=== PATIENT | female | born 1950 | race Caucasian/White ===

== ENCOUNTER 2016-12-19 19:24 | Emergency (ER) | payer MEDICARE, BC ==
--- NOTE | 2016-12-19 23:09 | ER Document Report ---
ED Skin Rash/Insect Bite/Abscs - General Chief Complaint: Rash Stated Complaint: POSSIBLE RASH Time Seen by Provider: 12/19/16 23:07 Mode of Arrival: Ambulatory Information source: Patient Notes: This is a 66-year-old female with a history of hypertension, borderline diabetes , recent UTI (on Cipro for 4 days) who presents to the emergency room with a upper extremity rash. Patient denies fever, chills, nausea vomiting. She states she started itching one day before being placed on the Cipro. She started having a rash on the extensor surface of the forearms. The right side was worse than the left. She's been taking Benadryl for itch and the symptoms have progressed. TRAVEL OUTSIDE OF THE [place] IN LAST 30 DAYS: No - HPI Patient complains to provider of: Skin rash/lesion Onset: Last week Onset/Duration: Gradual Quality of pain: No pain Severity: None Pain Level: Denies Skin Character: Rash Skin Temperature: Cool Quality of rash: Itchy Identify cause: No - patient states she had gotten several mosquito bites Medication exposure: Other - She states that the rash started one day before being started on Cipro for a UTI Other exposure: denies: Detergent, Lotions, Infectious illness, Makeup, MRSA, Poison elsie, Poison oak, Soap, Other Exacerbated by: Denies Relieved by: Denies Similar symptoms previously: No Recently seen / treated by doctor: No - Related Data Allergies/Adverse Reactions: Penicillins Allergy (Intermediate, Verified 10/17/14 11:21) Rash Sulfa (Sulfonamide Antibiotics) Allergy (Unknown, Verified 10/17/14 11:21) Unknown reaction Past Medical History - General Information source: Patient - Social History Smoking Status: Never Smoker Cigarette use (# per day): No Chew tobacco use (# tins/day): No Frequency of alcohol use: None Drug Abuse: None Lives with: Spouse/Significant other Family History: Reviewed & Not Pertinent Patient has suicidal ideation: No Patient has homicidal ideation: No - Past Medical History Cardiac Medical History: Reports: Hx Hypertension Denies: Hx Coronary Artery Disease, Hx Heart Attack Pulmonary Medical History: Denies: Hx Asthma, Hx Bronchitis, Hx COPD, Hx Pneumonia Neurological Medical History: Denies: Hx Cerebrovascular Accident, Hx Seizures Endocrine Medical History: Reports: Hx Diabetes Mellitus Type 2 Renal/ Medical History: Denies: Hx Peritoneal Dialysis Malignancy Medical History: Reports: None Musculoskeltal Medical History: Reports Hx Arthritis - knees Skin Medical History: Reports None Psychiatric Medical History: Reports: None Traumatic Medical History: Reports: None Infectious Medical History: Reports: None Past Surgical History: Reports: Other - Cervical fusion, bilateral knee replacements. Denies: Hx Pacemaker - Immunizations Hx Diphtheria, Pertussis, Tetanus Vaccination: No - unknown Hx Pneumococcal Vaccination: 05/07/09 Review of Systems - Review of Systems Constitutional: denies: Chills, Fever EENT: No symptoms reported Cardiovascular: No symptoms reported Respiratory: No symptoms reported Gastrointestinal: No symptoms reported Genitourinary: No symptoms reported Female Genitourinary: No symptoms reported Musculoskeletal: No symptoms reported Skin: See HPI Hematologic/Lymphatic: No symptoms reported Neurological/Psychological: No symptoms reported Physical Exam - Vital signs Notes: Physical exam: GENERAL: 66-year-old female, alert and oriented 3, no acute distress. HEAD: Atraumatic, normocephalic. EYES: Pupils equal round and reactive to light, extraocular movements intact, sclera anicteric, conjunctiva are normal. ENT: Moist mucous membranes. NECK: Normal range of motion, supple LUNGS: Breath sounds clear to auscultation bilaterally and equal. No wheezes rales or rhonchi. HEART: Regular rate and rhythm without murmurs, rubs or gallops. EXTREMITIES: Right upper extremity: Patient has a diffuse rash on the extensor surface of the right forearm. He does appear to be scratches. The reaction does not appear cellulitic. It looks like a atopic dermatitis. NEUROLOGICAL: Cranial nerves II through XII grossly intact. Normal speech, normal gait. PSYCH: Normal mood, normal affect. SKIN: Warm, Dry, normal turgor, no rashes or lesions noted. Discharge - Discharge Clinical Impression: allergic reaction Condition: Stable Disposition: HOME, SELF-CARE Instructions: Acute Allergic Reaction ([facility]) Additional Instructions: Recommendations: Take the prednisone as prescribed for the next few days. Take Pepcid twice daily as prescribed. Continue with the Benadryl every 6 hours as needed. Try a Aveeno oatmeal based skin lotions and soaps. Follow-up with Dr. Vallejo: Call the office tomorrow. I would probably stop the Cipro for now. Follow-up with a software quality test engineer: [facility] [place] [id number] , [place], [place] [phone] Prescriptions: Famotidine [Pepcid 20 mg Tablet] 20 mg PO DAILY #12 tablet Prednisone [Deltasone 20 mg Tablet] 3 tab PO DAILY 5 Days Referrals: DARLENE BANSAL MD [Primary Care Provider] - Follow up tomorrow
[2016-12-19] MEDS ORDERED: PREDNISONE 20 MG TABLET PO ONE (23:20)
[2016-12-19 23:47] VITALS: BP 149/85
== END 2016-12-19 23:48 | disposition home or self-care (01) ==
LOC: ER 19:24
DX: T78.40XA Allergy, unspecified, initial encounter (principal); X58.XXXA Exposure to other specified factors, initial encounter; I10 Essential (primary) hypertension; R73.03 Prediabetes; Z88.0 Allergy status to penicillin; Z88.2 Allergy status to sulfonamides; Z98.1 Arthrodesis status; Z96.653 Presence of artificial knee joint, bilateral
CPT/HCPCS: 99282; A9270; J7512

== ENCOUNTER → 2016-12-22 | Outpatient (CLI) | payer MEDICARE, BC ==
[2016-12-22 13:26] LABS: ERYTHROCYTE SEDIMENTATION RATE 23 mm/hr (0-30)
[2016-12-22 16:00] LABS: ABSOLUTE EOSINOPHILS # (AUTO) 0.1 10^3/uL (0.0-0.6); ABSOLUTE LYMPHOCYTES (AUTO) 1.1 10^3/uL (0.5-4.7); ABSOLUTE MONOCYTES (AUTO) 0.5 10^3/uL (0.1-1.4); ABSOLUTE NEUT (AUTO) 7.2 10^3/uL (1.7-8.2); BASOPHILS % (AUTO) 0.3 % (0-2); HEMATOCRIT 39.5 % (36.0-47.0); HEMOGLOBIN 12.7 g/dL (12.0-15.5); HGB HCT DIFFERENCE -1.4; LYMPHOCYTES % (AUTO) 12.5 % (13-45); MEAN CORPUSCULAR HEMOGLOBIN 30.3 pg (27.0-33.4); MEAN CORPUSCULAR HGB CONC 32.1 g/dL (32.0-36.0); MEAN CORPUSCULAR VOLUME 95 fl (80-97); MONOCYTES % (AUTO) 5.9 % (3-13); RED BLOOD COUNT 4.18 10^6/uL (3.72-5.28); SEGMENTED NEUTROPHILS % (AUTO) 80.3 % (42-78)
== END ==
LOC: OD 07:47
PROVIDERS: ATTEND Internal Medicine
DX: L30.9 Dermatitis, unspecified (principal)
CPT/HCPCS: 36415; 85025; 85652

== ENCOUNTER → 2017-05-23 | Outpatient (CLI) | payer MEDICARE, BC ==
[2017-05-23 14:03] LABS: ALANINE AMINOTRANSFERASE 40 U/L (9-52); ALBUMIN 3.5 g/dL (3.5-5.0); ALKALINE PHOSPHATASE 112 U/L (38-126); ANION GAP 13 (5-19); ASPARTATE AMINO TRANSFERASE 43 U/L (14-36); BILIRUBIN,DIRECT 0.5 mg/dL (0.0-0.4); BILIRUBIN,TOTAL 1.5 mg/dL (0.2-1.3); BLOOD UREA NITROGEN 14 mg/dL (7-20); CALCIUM 9.3 mg/dL (8.4-10.2); CARBON DIOXIDE 26 mmol/L (22-30); CHLORIDE 106 mmol/L (98-107); CREATININE RESULT 0.68 mg/dL (0.52-1.25); GLUCOSE 138 mg/dL (75-110); POTASSIUM 4.6 mmol/L (3.6-5.0); SODIUM 144.5 mmol/L (137-145); TOTAL PROTEIN 6.8 g/dL (6.3-8.2)
== END ==
LOC: OD 10:01
PROVIDERS: ATTEND Internal Medicine
DX: E11.42 Type 2 diabetes mellitus with diabetic polyneuropathy (principal)
CPT/HCPCS: 36415; 80053

== ENCOUNTER → 2017-05-29 | Outpatient (CLI) | payer MEDICARE, BC | LOC: OD 09:51 | PROVIDERS: ATTEND Internal Medicine | DX: E11.42 Type 2 diabetes mellitus with diabetic polyneuropathy (principal) | CPT/HCPCS: 36415; 83036 ==

== ENCOUNTER 2017-06-13 10:45 | Day surgery (SDC) | payer MEDICARE, BC ==
[~2017-06-13 10:45] MED LIST: BUPIVACAINE HCL 0.75% INJ/PF (7.5 MG/1 ML) 10 ML SDV OS PRN; CHONDR SU A NA/HYALUR INTRAOC KIT (SURGICARE) ONE; KETOROLAC TROMETHAMINE 0.45% 4 DROP/0.4 ML DROPERETTE OS PRN; LIDOCAINE 4% INJ/PF (40 MG/ML) 5 ML AMPUL OS PRN; PHENYLEPHRINE/KETOROLAC 1%-0.3% 4 ML VIAL ONE
[2017-06-13] MEDS: TROPICAMIDE 1% OPH SOLN 3 ML OS PRN ×3 (11:15→11:41)
[2017-06-13] MEDS: BESIFLOXACIN HCL 0.6% OPH SUSP 5 ML BOTTLE OS PRN ×4 (11:15→12:19)
[2017-06-13] MEDS: CYCLOPENTOLATE 0.2%/PHENYLEPHRINE 1% OPH SOLN 2 ML OS PRN ×3 (11:15→11:41)
[2017-06-13] MEDS: TETRACAINE HCL 0.5% OPH SOLN 0.6 ML DROPERETTE OS PRN ×2 (11:16→11:41)
[2017-06-13] MEDS ORDERED: FENTANYL CITRATE INJ/PF 100 MCG/2 ML AMPUL ONE (11:27)
[2017-06-13] MEDS ORDERED: MIDAZOLAM 2 MG/2 ML INJ ONE (11:27)
[2017-06-13] MEDS ORDERED: ONDANSETRON HCL INJ/PF 4 MG/2 ML SDV ONE (11:28)
--- NOTE | 2017-06-13 12:42 | [facility] OPERATIVE REPORT E ---
[facility] Operative Report NAME: VITO SUÁREZ AGE: 67Y DATE OF SURGERY: 06/13/2017 ROOM: PREOPERATIVE DIAGNOSIS: Cataract, left eye. POSTOPERATIVE DIAGNOSIS: Cataract, left eye. PROCEDURE PERFORMED: Phacoemulsification with posterior chamber intraocular lens, left eye. SURGEON: EARL KU M.D. ANESTHESIA: Topical with MAC. DESCRIPTION OF PROCEDURE: The patient was brought to the operating room and placed on the operative table. Following tetracaine drops, topical anesthesia was administered. This consisted of instrument wipe pledgets soaked in a solution of 4% Xylocaine mixed with 0.75% Marcaine in a 1:2 ratio. A 2 x 1 cm pledget was placed in the superior fornix. A 1 x 1 cm pledget was placed in the inferior fornix. The eye was patched shut for 5 minutes. The patch was removed. The eye was sterilely prepped and draped in the usual manner. Lid speculum was placed in the eye. The pledgets were removed, 4-0 black silk sutures were placed around the superior and the inferior rectus muscles to be used as traction. A conjunctival peritomy was made at the 10 o'clock position. Hemostasis was obtained with bipolar cautery. A posterior limbal groove was created using a crescent knife and dissected anteriorly towards the cornea. A sharp point blade was used to create a paracentesis site at the 2 o'clock position. A 2.4 mm keratome was used to enter the anterior chamber through the groove. Viscoelastic was injected into the anterior chamber. An anterior capsulotomy was performed using Utrata forceps in a capsulorrhexis fashion. Hydrodissection and hydrodelineation were performed. Phacoemulsification was performed in [id number]-[id number]-[id number] technique. Total phaco time 8.64 CDE. Following this, the I/A unit was used to remove residual cortex. Viscoelastic was injected into the capsular bag. Intraocular lens Model [id number], 20.5 diopters, serial number [id number] was placed in the capsular bag. The I/A unit was used to remove residual viscoelastic. The wound was seen to be watertight under high and low pressure, and no sutures were placed. The intraocular lens was well centered. The pressure was adjusted in the eye to normal pressure. The 4-0 black silk sutures and lid speculum were removed. The eye was shielded after Besivance drops were placed. The patient tolerated the procedure well and was sent to the recovery room in good condition. DICTATING PHYSICIAN: EARL KU M.D. [id number] PHY#: [id number] ID: [id number] JOB#: [id number] ACCT: [id number] cc:EARL KU M.D. >
--- NOTE | 2017-06-13 12:43 | [facility] DISCHARGE SUMMARY E ---
[facility] Discharge Summary NAME: VITO SUÁREZ AGE: 67Y ADMITTED: 06/13/2017 DISCHARGED: 06/13/2017 HOSPITAL COURSE: The patient is a 67-year-old lady who underwent uneventful cataract extraction with intraocular lens implant, left eye on 06/13/2017. She will be discharged to home. She was instructed to resume preoperative medications, to take Tylenol as needed for discomfort, to keep her eye shielded, to use Besivance, Durezol and Ilevro at 3:00 p.m. and 8:00 p.m., and to follow up in my office in 1 day. INDICATIONS FOR SURGERY: Difficulty with driving at night and seeing words on TV. BEST CORRECTED VISUAL ACUITY: 20/70. DICTATING PHYSICIAN: EARL KU M.D. [id number] PHY#: [id number] ID: [id number] JOB#: [id number] ACCT: [id number] cc:EARL KU M.D. >
[2017-06-14] MEDS ORDERED: TETRACAINE HCL 0.5% OPH SOLN 2 ML OS PRN (05:00)
== END 2017-06-13 13:08 | disposition home or self-care (01) ==
LOC: SC 10:45
PROVIDERS: ATTEND Ophthalmology
PROC: 08RK3JZ Replacement of Left Lens with Synthetic Substitute, Percutaneous Approach (ICD-10-PCS; principal; 2017-06-13 12:00)
DX: H25.813 Combined forms of age-related cataract, bilateral (principal); H57.03 Miosis; H35.363 Drusen (degenerative) of macula, bilateral; E11.9 Type 2 diabetes mellitus without complications; I10 Essential (primary) hypertension; M19.90 Unspecified osteoarthritis, unspecified site; M81.0 Age-related osteoporosis without current pathological fracture; D64.9 Anemia, unspecified; E66.9 Obesity, unspecified; Z79.899 Other long term (current) drug therapy; Z88.0 Allergy status to penicillin; Z79.4 Long term (current) use of insulin; Z68.38 Body mass index [BMI] 38.0-38.9, adult
CPT/HCPCS: 66984; 82962; V2632; J2250; J3490 ×3; A9270; J3010; J2405; C9447; 142

== ENCOUNTER 2017-07-18 07:53 | Day surgery (SDC) | payer MEDICARE, BC ==
[~2017-07-18 07:53] MED LIST changes: +BUPIVACAINE HCL 0.75% INJ/PF (7.5 MG/1 ML) 10 ML SDV OD PRN; -BUPIVACAINE HCL 0.75% INJ/PF (7.5 MG/1 ML) 10 ML SDV OS PRN; +KETOROLAC TROMETHAMINE 0.45% 4 DROP/0.4 ML DROPERETTE OD PRN; -KETOROLAC TROMETHAMINE 0.45% 4 DROP/0.4 ML DROPERETTE OS PRN; +LIDOCAINE 1% INJ-PF (10 MG/ML) 30 ML SDV ONE; +LIDOCAINE 4% INJ/PF (40 MG/ML) 5 ML AMPUL OD PRN; -LIDOCAINE 4% INJ/PF (40 MG/ML) 5 ML AMPUL OS PRN
[2017-07-18] MEDS: CYCLOPENTOLATE 0.2%/PHENYLEPHRINE 1% OPH SOLN 2 ML OD PRN ×3 (08:25→09:03)
[2017-07-18] MEDS: TROPICAMIDE 1% OPH SOLN 3 ML OD PRN ×3 (08:25→09:03)
[2017-07-18] MEDS: BESIFLOXACIN HCL 0.6% OPH SUSP 5 ML BOTTLE OD PRN ×3 (08:26→09:38)
[2017-07-18] MEDS: TETRACAINE HCL 0.5% OPH SOLN 0.6 ML DROPERETTE OD PRN ×2 (08:27→09:03)
[2017-07-18] MEDS ORDERED: MIDAZOLAM 2 MG/2 ML INJ ONE (08:46)
[2017-07-18] MEDS ORDERED: FENTANYL CITRATE INJ/PF 100 MCG/2 ML AMPUL ONE (08:53)
--- NOTE | 2017-07-18 09:54 | [facility] DISCHARGE SUMMARY E ---
[facility] Discharge Summary NAME: VITO SUÁREZ AGE: 67Y ADMITTED: 07/18/2017 DISCHARGED: 07/18/2017 PREOPERATIVE DIAGNOSIS: CATARACT, RIGHT EYE. POSTOPERATIVE DIAGNOSIS: CATARACT, RIGHT EYE. HOSPITAL COURSE: Patient is a 67-year-old lady who underwent uneventful cataract extraction with intraocular lens implant, right eye, on 07/18/2017. DISPOSITION: She will be discharged to home. She was instructed to resume preoperative medications; take Tylenol as needed for discomfort; to keep her eye shielded; to use Besivance, Durezol, and Ilevro at 3:00 p.m. and 8:00 p.m.; and to follow up in my office in 1 day. DICTATING PHYSICIAN: EARL KU M.D. [id number] PHY#: [id number] ID: [id number] JOB#: [id number] ACCT: [id number] cc:EARL KU M.D. >
--- NOTE | 2017-07-18 09:54 | [facility] OPERATIVE REPORT E ---
[facility] Operative Report NAME: VITO SUÁREZ AGE: 67Y DATE OF SURGERY: 07/18/2017 ROOM: PREOPERATIVE DIAGNOSIS: CATARACT, RIGHT EYE. POSTOPERATIVE DIAGNOSIS: CATARACT, RIGHT EYE. PROCEDURE PERFORMED: Phacoemulsification with posterior chamber intraocular lens, right eye. SURGEON: EARL KU M.D. ANESTHESIA: Topical W/MAC. INDICATIONS FOR SURGERY: Difficulty with optical imbalance following cataract surgery in the left eye. Best corrected visual acuity 20/50 DESCRIPTION OF PROCEDURE: The patient was brought to the operating room and placed on the operative table. Following tetracaine drops, topical anesthesia was administered. This consisted of instrument wipe pledgets soaked in a solution of 4% Xylocaine mixed with 0.75% Marcaine in a 1:2 ratio. A 2 x 1 cm pledget was placed in the superior fornix. A 1 x 1 cm pledget was placed in the inferior fornix. The eye was patched shut for 5 minutes. The patch was removed. The eye was sterilely prepped and draped in the usual manner. Lid speculum was placed in the eye. The pledgets were removed, 4-0 black silk sutures were placed around the superior and the inferior rectus muscles to be used as traction. A conjunctival peritomy was made at the 10 o'clock position. Hemostasis was obtained with bipolar cautery. A posterior limbal groove was created using a crescent knife and dissected anteriorly towards the cornea. A sharp point blade was used to create a paracentesis site at the 2 o'clock position. A 2.4 mm keratome was used to enter the anterior chamber through the groove. Viscoelastic was injected into the anterior chamber. An anterior capsulotomy was performed using Utrata forceps in a capsulorrhexis fashion. Hydrodissection and hydrodelineation were performed. Phacoemulsification was performed in [id number]-nophemo technique. A total of 44 seconds total phaco time was used. Following this, the I/A unit was used to remove residual cortex. Viscoelastic was injected into the capsular bag. Intraocular lens Model [id number], 19.5 diopter, serial number [id number] was placed in the capsular bag. The I/A unit was used to removed residual viscoelastic. The wound was seen to be watertight under high and low pressure, and no sutures were placed. The intraocular lens was well centered. The pressure was adjusted in the eye to normal pressure. The 4-0 black silk sutures and lid speculum were removed. The eye was shielded after Besivance drops were placed. The patient tolerated the procedure well and was sent to the recovery room in good condition. DICTATING PHYSICIAN: EARL KU M.D. [id number] PHY#: [id number] ID: [id number] JOB#: [id number] ACCT: [id number] cc:EARL KU M.D. > MTDD
== END 2017-07-18 10:40 | disposition home or self-care (01) ==
LOC: SC 07:53
PROVIDERS: ATTEND Ophthalmology
PROC: 08RJ3JZ Replacement of Right Lens with Synthetic Substitute, Percutaneous Approach (ICD-10-PCS; principal; 2017-07-18 09:30)
DX: H25.811 Combined forms of age-related cataract, right eye (principal); H57.03 Miosis; Z96.1 Presence of intraocular lens; I10 Essential (primary) hypertension; M19.90 Unspecified osteoarthritis, unspecified site; K21.9 Gastro-esophageal reflux disease without esophagitis; E11.9 Type 2 diabetes mellitus without complications; D64.9 Anemia, unspecified; E66.9 Obesity, unspecified; Z79.899 Other long term (current) drug therapy; Z88.0 Allergy status to penicillin; Z88.2 Allergy status to sulfonamides; Z79.84 Long term (current) use of oral hypoglycemic drugs; Z68.38 Body mass index [BMI] 38.0-38.9, adult
CPT/HCPCS: 66984; 82962; V2632; J2250; J3490 ×4; A9270; C9447; 142; J3010

== ENCOUNTER 2017-09-25 15:08 | Observation (INO) | payer MEDICARE, BC ==
[2017-09-25 16:35] LABS: HEMOGLOBIN 12.4 g/dL (12.0-15.5); MEAN CORPUSCULAR HEMOGLOBIN 30.3 pg (27.0-33.4); MEAN CORPUSCULAR HGB CONC 33.4 g/dL (32.0-36.0); MEAN CORPUSCULAR VOLUME 91 fl (80-97); PLATELET COUNT 144 10^3/uL (150-450); RED BLOOD COUNT 4.08 10^6/uL (3.72-5.28); RED CELL DISTRIBUTION WIDTH 15.5 % (11.5-14.0); WHITE BLOOD COUNT 5.8 10^3/uL (4.0-10.5)
[2017-09-25 16:53] LABS: ALANINE AMINOTRANSFERASE 52 U/L (9-52); ALBUMIN 3.1 g/dL (3.5-5.0); ALKALINE PHOSPHATASE 127 U/L (38-126); ANION GAP 7 (5-19); ASPARTATE AMINO TRANSFERASE 65 U/L (14-36); BILIRUBIN,DIRECT 0.3 mg/dL (0.0-0.4); BILIRUBIN,TOTAL 1.1 mg/dL (0.2-1.3); BLOOD UREA NITROGEN 12 mg/dL (7-20); CALCIUM 8.5 mg/dL (8.4-10.2); CARBON DIOXIDE 32 mmol/L (22-30); CHLORIDE 103 mmol/L (98-107); GLUCOSE 107 mg/dL (75-110); POTASSIUM 4.2 mmol/L (3.6-5.0); SODIUM 141.5 mmol/L (137-145); TOTAL PROTEIN 6.4 g/dL (6.3-8.2)
[2017-09-25 17:23] LABS: FREE T4 (FREE THYROXINE) 1.39 ng/dL (0.78-2.19)
[2017-09-25 17:37] LABS: THYROID STIMULATING HORMONE 1.22 uIU/mL (0.47-4.68)
[2017-09-25 18:55] LABS: ABSOLUTE LYMPHOCYTES# (MANUAL) 1.9 10^3/uL (0.5-4.7); ABSOLUTE MONOCYTES # (MANUAL) 0.2 10^3/uL (0.1-1.4); ABSOLUTE NEUTROPHILS# (MANUAL) 3.3 10^3/uL (1.7-8.2); BASOPHILS % (MANUAL) 0 % (0-2); EOSINOPHILS % (MANUAL) 7 % (0-6); LYMPHOCYTES % (MANUAL) 33 % (13-45); MONOCYTES % (MANUAL) 3 % (3-13); SEGMENTED NEUTROPHILS % (MAN) 57 % (42-78); TOTAL CELLS COUNTED 100
[2017-09-25 18:56] LABS: ANISOCYTOSIS SLIGHT; PLATELET COMMENT ADEQUATE
[2017-09-25 19:10] LABS: APPEARANCE,URINE SLIGHTLY-CLOUDY; BILIRUBIN,URINE NEGATIVE (NEGATIVE); COLOR,URINE YELLOW; GLUCOSE, URINE NEGATIVE (NEGATIVE); KETONES,URINE NEGATIVE (NEGATIVE); LEUKOCYTE ESTERASE,URINE NEGATIVE (NEGATIVE); NITRITE,URINE POSITIVE (NEGATIVE); PROTEIN,URINE NEGATIVE (NEGATIVE); URINE SPECIFIC GRAVITY 1.016
--- NOTE | 2017-09-25 20:43 | PDOC H&P ---
History of Present Illness Admission Date/PCP: 09/25/17 15:08 DARLENE BANSAL MD History of Present Illness: VITO SUÁREZ is a 67 year old female,She is morbidly obese, she had outpatient CAT scan of the abdomen and pelvis done she was found to have ascites. She has no history of liver disease that she knows of, there is no alcohol abuse, she was brought in for evaluation and observation . abdominal paracentesis is ordered to determine if the ascites fluid is from portal hypertension or other causes to help in the differential diagnosis of the ascities and ultimately the management of this patient's problem.The attempted ultrasound-guided abdominal paracentesis was ultimately not done because there was minimal ascites that could be drained from the peritoneal cavity. A CT scan of the abdomen and pelvis with IV contrast was done, it showed small amount of perihepatic ascites with multiple varices throughout the upper abdomen. There is mild hepatomegaly, this suggests that she may portal venous hypertension. I discussed the finding with the patient, she will need upper endoscopy, she most likely have liver disease probably fatty liver disease/nonalcoholic hepato- steatosis/liver cirrhosis she may ultimately need a liver biopsy, this will be arranged outpatient. 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 Denies: Sickle Cell Disease Past Surgical History Past Surgical History: Reports: Other - Cervical fusion, bilateral knee replacements Social History Smoking Status: Never Smoker Drugs: None - Advance Directive Resuscitation Status: Full Code Family History Family History: Reviewed & Not Pertinent Parental Family History Reviewed: Yes Children Family History Reviewed: Yes Sibling(s) Family History Reviewed.: Yes Medication/Allergy Home Medications: Desipramine HCl [Norpramin 50 mg Tablet] 50 mg PO QHS 09/26/17 Ferrous Sulfate [Feosol 325 mg Tablet] 325 mg PO DAILY 09/26/17 Folic Acid [Folvite 1 mg Tablet] 1 mg PO DAILY 09/26/17 Hydrocodone/Acetaminophen [Hydrocodone-Acetamin 7.5-325] 1 tab PO Q6HP PRN 09/26 Metformin HCl [Glucophage 500 mg Tablet] 500 mg PO DAILY 09/26/17 Metoprolol Tartrate [Lopressor 50 mg Tablet] 50 mg PO DAILY 09/26/17 Mirabegron [Myrbetriq] 50 mg PO DAILY 09/26/17 Paroxetine HCl [Paxil 20 mg Tablet] 20 mg PO DAILY 09/26/17 Pregabalin [Lyrica 75 mg Capsule] 75 mg PO Q12 09/26/17 Allergies/Adverse Reactions: Penicillins Allergy (Intermediate, Verified 06/13/17 11:48) Rash Sulfa (Sulfonamide Antibiotics) Allergy (Intermediate, Verified 07/17/17 10:46) RASH IN MOUTH Review of Systems Constitutional: ABSENT: chills, fever(s), headache(s), weight gain, weight loss Eyes: ABSENT: visual disturbances Ears: ABSENT: hearing changes Cardiovascular: ABSENT: chest pain, dyspnea on exertion, edema, orthropnea, palpitations Respiratory: ABSENT: cough, hemoptysis Gastrointestinal: PRESENT: abdominal pain Genitourinary: ABSENT: dysuria, hematuria Musculoskeletal: ABSENT: joint swelling Integumentary: ABSENT: rash, wounds Neurological: ABSENT: abnormal gait, abnormal speech, confusion, dizziness, focal weakness, syncope Psychiatric: ABSENT: anxiety, depression, homidical ideation, suicidal ideation Endocrine: ABSENT: cold intolerance, heat intolerance, menstrual abnormalities, polydipsia, polyuria Hematologic/Lymphatic: ABSENT: easy bleeding, easy bruising, lymphadenopathy Physical Exam Vital Signs: Temp Pulse Resp BP Pulse Ox 98.1 F 72 16 136/74 H 100 09/25/17 16:16 09/25/17 16:16 09/25/17 16:16 09/25/17 16:16 09/25/17 16:16 General appearance: PRESENT: no acute distress, well-developed, well-nourished Head exam: PRESENT: atraumatic, normocephalic Eye exam: PRESENT: conjunctiva pink, EOMI, PERRLA Ear exam: PRESENT: normal external ear exam Mouth exam: PRESENT: moist, tongue midline Neck exam: PRESENT: full ROM Respiratory exam: PRESENT: clear to auscultation ayad Cardiovascular exam: PRESENT: RRR, +S1, +S2 Pulses: PRESENT: normal dorsalis pedis pul, +2 pedal pulses bilateral Vascular exam: PRESENT: normal capillary refill GI/Abdominal exam: PRESENT: normal bowel sounds, soft Rectal exam: PRESENT: deferred Neurological exam: PRESENT: alert, awake, oriented to person, oriented to place , oriented to time, oriented to situation, CN II-XII grossly intact Psychiatric exam: PRESENT: appropriate affect, normal mood Skin exam: PRESENT: dry, intact, warm Results Laboratory Results: 09/25/17 16:30 09/25/17 16:30 09/25/17 09/25/17 09/25/17 16:30 16:30 16:30 WBC 5.8 RBC 4.08 Hgb 12.4 Hct 37.0 MCV 91 MCH 30.3 MCHC 33.4 RDW 15.5 H Plt Count 144 L Seg Neutrophils % Not Reportable Lymphocytes % Not Reportable Monocytes % Not Reportable Eosinophils % Not Reportable Basophils % Not Reportable Absolute Neutrophils Not Reportable Absolute Lymphocytes Not Reportable Absolute Monocytes Not Reportable Absolute Eosinophils Not Reportable Absolute Basophils Not Reportable Sodium 141.5 Potassium 4.2 Chloride 103 Carbon Dioxide 32 H Anion Gap 7 BUN 12 Creatinine 0.73 Est GFR ( Amer) > 60 Est GFR (Non-Af Amer) > 60 Glucose 107 Calcium 8.5 Total Bilirubin 1.1 AST 65 H ALT 52 Alkaline Phosphatase 127 H Total Protein 6.4 Albumin 3.1 L TSH 1.22 Free T4 1.39 Urine Color Urine Appearance Urine pH Ur Specific [place] Urine Protein Urine Glucose (UA) Urine Ketones Urine Blood Urine Nitrite Ur Leukocyte Esterase Urine WBC (Auto) Urine RBC (Auto) 09/25/17 09/25/17 16:30 18:41 WBC Cancelled RBC Cancelled Hgb Cancelled Hct Cancelled MCV Cancelled MCH Cancelled MCHC Cancelled RDW Cancelled Plt Count Cancelled Seg Neutrophils % Cancelled Lymphocytes % Cancelled Monocytes % Cancelled Eosinophils % Cancelled Basophils % Cancelled Absolute Neutrophils Cancelled Absolute Lymphocytes Cancelled Absolute Monocytes Cancelled Absolute Eosinophils Cancelled Absolute Basophils Cancelled Sodium Potassium Chloride Carbon Dioxide Anion Gap BUN Creatinine Est GFR ( Amer) Est GFR (Non-Af Amer) Glucose Calcium Total Bilirubin AST ALT Alkaline Phosphatase Total Protein Albumin TSH Free T4 Urine Color YELLOW Urine Appearance SLIGHTLY-CLOUDY Urine pH 7.0 Ur Specific [place] 1.016 Urine Protein NEGATIVE Urine Glucose (UA) NEGATIVE Urine Ketones NEGATIVE Urine Blood NEGATIVE Urine Nitrite POSITIVE H Ur Leukocyte Esterase NEGATIVE Urine WBC (Auto) 2 Urine RBC (Auto) 1 Assessment & Plan - Diagnosis (1) Ascites Qualifiers: Ascites type: other type Qualified Code(s): R18.8 - Other ascites Is this a current diagnosis for this admission?: Yes (2) Intra-abdominal varices Is this a current diagnosis for this admission?: Yes
[2017-09-25] MEDS ORDERED: HYDROCODONE/ACETAMINOPHEN 7.5-325 MG TABLET PO PRN (22:05)
[2017-09-26 07:20] LABS: INTERNATIONAL RATION (INR) 1.31; PROTHROMBIN TIME 17.1 SEC (11.4-15.4)
--- NOTE | 2017-09-26 14:10 | RADIOLOGY REPORT (SQ) ---
EXAM DESCRIPTION: U/S ABDOMEN LIMITED W/O DOP COMPLETED DATE/TIME: 09/26/2017 1:55 pm REASON FOR STUDY: ascites R18.8 OTHER ASCITES COMPARISON: [facility] CT abdomen pelvis 09/12/2017 TECHNIQUE: Dynamic and static grayscale images acquired of the abdomen and recorded on PACS. Additio nal selected color Doppler and spectral images recorded. LIMITATIONS: Midline upper abdominal bowel gas FINDINGS: Ultrasound in preparation for paracentesis. Ultrasound over all 4 quadrants of the abdomen was performed. A trace amount of fluid is seen up in the right upper quadrant between the hemidiaphragm and liver. Insufficient pocket for paracentesis. Procedure canceled IMPRESSION: Trace amount of fluid in the right upper quadrant between the liver and right hemidiaphr [facility] TECHNICAL DOCUMENTATION: JOB ID: [id number] [employer]- All Rights Reserved
--- NOTE | 2017-09-26 20:13 | RADIOLOGY REPORT (SQ) ---
EXAM DESCRIPTION: CT ABD/PELVIS WITH IV ORAL COMPLETED DATE/TIME: 09/26/2017 6:42 pm REASON FOR STUDY: abd pain R18.8 OTHER ASCITES COMPARISON: 10/13/2015 TECHNIQUE: CT scan of the abdomen and pelvis performed using helical scanning technique with dynamic intravenous contrast injection. No oral contrast. Images reviewed with lung, soft tissue, and bone windows. Reconstructed coronal and sagittal MPR images reviewed. Delayed images for evaluation of the urinary system also acquired. All images stored on PACS. All CT scanners at this facility use dose modulation, iterative reconstruction, and/or weight based d osing when appropriate to reduce radiation dose to as low as reasonably achievable (ALARA). [facility]: Dose Right [facility]: CareDose [facility]: Dose Right [facility]: Teradose 4D [facility]: Conergy CONTRAST TYPE AND DOSE: contrast/concentration: Isovue 370.00 mg/ml; Total Contrast Delivered: 100.0 ml; Total Saline Delivered: 72.1 ml RENAL FUNCTION: GFR > 60. RADIATION DOSE: CT Rad equipment meets quality standard of care and radiation dose reduction techniq ues were employed. CTDIvol: 20.8 - 21.1 mGy. DLP: 2292 mGy-cm.. LIMITATIONS: None. FINDINGS: LOWER CHEST: No significant findings. No nodules or infiltrates. LIVER: Small amount of perihepatic ascites. Multiple varices throughout the upper abdomen. Mild hep atomegaly. No masses. No dilated ducts. SPLEEN: Normal size. No focal lesions. PANCREAS: No masses. No significant calcifications. No adjacent inflammation or peripancreatic fluid collections. Pancreatic duct not dilated. GALLBLADDER: Surgically absent. ADRENAL GLANDS: No significant masses or asymmetry. RIGHT KIDNEY AND URETER: No solid masses. Similar lower pole cyst No significant calcifications. N o hydronephrosis or hydroureter. LEFT KIDNEY AND URETER: No solid masses. No significant calcifications. No hydronephrosis or hydr oureter. AORTA AND VESSELS: No aneurysm. No dissection. Renal arteries, SMA, celiac without stenosis. RETROPERITONEUM: No bulky retroperitoneal adenopathy, hemorrhage or masses. BOWEL AND PERITONEAL CAVITY: Prior gastric bypass. No masses or focal inflammatory changes. Mild pe rihepatic ascites. APPENDIX: Normal. PELVIS: No mass. No free fluid. Tiny amount of gas in the lumen of the bladder. ABDOMINAL WALL: No masses. No hernias. BONES: No acute findings. OTHER: No other significant finding. IMPRESSION: Small amount of perihepatic ascites. Multiple varices throughout the upper abdomen. Mi ld hepatomegaly. Otherwise, No evidence for obstruction or focal acute finding. TECHNICAL DOCUMENTATION: JOB ID: [id number] Quality ID # [id number]: Final reports with documentation of one or more dose reduction techniques (e.g., Au tomated exposure control, adjustment of the mA and/or kV according to patient size, use of iterative reconstruction technique) 2010 [employer]- All Rights Reserved
[2017-09-26 20:56] VITALS: BP 138/72
--- NOTE | 2017-09-26 21:41 | PDOC DISCHARGE SUMMARY ---
General - Admit/Disc Date/PCP Admission Date/Primary Care Provider: 09/25/17 15:08 DARLENE BANSAL MD Discharge Date: 09/26/17 - Discharge Diagnosis (1) Ascites Is this a current diagnosis for this admission?: Yes (2) Intra-abdominal varices Is this a current diagnosis for this admission?: Yes (3) Hepatomegaly Is this a current diagnosis for this admission?: Yes - Additional Information Resuscitation Status: Full Code Discharge Diet: As Tolerated, Regular Discharge Activity: Activity As Tolerated, Balance Activity w/Rest Home Medications: Desipramine HCl [Norpramin 50 mg Tablet] 50 mg PO QHS 09/26/17 Ferrous Sulfate [Feosol 325 mg Tablet] 325 mg PO DAILY 09/26/17 Folic Acid [Folvite 1 mg Tablet] 1 mg PO DAILY 09/26/17 Hydrocodone/Acetaminophen [Hydrocodone-Acetamin 7.5-325] 1 tab PO Q6HP PRN 09/26 Metformin HCl [Glucophage 500 mg Tablet] 500 mg PO DAILY 09/26/17 Metoprolol Tartrate [Lopressor 50 mg Tablet] 50 mg PO DAILY 09/26/17 Mirabegron [Myrbetriq] 50 mg PO DAILY 09/26/17 Paroxetine HCl [Paxil 20 mg Tablet] 20 mg PO DAILY 09/26/17 Pregabalin [Lyrica 75 mg Capsule] 75 mg PO Q12 09/26/17 History of Present Illness History of Present Illness: VITO SUÁREZ is a 67 year old female,She is morbidly obese, she had outpatient CAT scan of the abdomen and pelvis done she was found to have ascites. She has no history of liver disease that she knows of, there is no alcohol abuse, she was brought in for evaluation and observation . abdominal paracentesis is ordered to determine if the ascites fluid is from portal hypertension or other causes to help in the differential diagnosis of the ascities and ultimately the management of this patient's problem.The attempted ultrasound-guided abdominal paracentesis was ultimately not done because there was minimal ascites that could be drained from the peritoneal cavity. A CT scan of the abdomen and pelvis with IV contrast was done, it showed small amount of perihepatic ascites with multiple varices throughout the upper abdomen. There is mild hepatomegaly, this suggests that she may portal venous hypertension. I discussed the finding with the patient, she will need upper endoscopy, she most likely have liver disease probably fatty liver disease/nonalcoholic hepato- steatosis/liver cirrhosis she may ultimately need a liver biopsy, this will be arranged outpatient. Hospital Course Hospital Course: Patient was admitted for observation, evaluation of ascites for details see the H&P. Hospital course was not eventful, she was admitted with intention to do abdominal paracentesis, it turned out to be minimal ascites in the abdomen that could not be drained subsequent CAT scan of the abdomen and pelvis was done with IV contrast it showed hepatomegaly, abdominal varices. Physical Exam Vital Signs: Temp Pulse Resp BP Pulse Ox 97.6 F 71 16 138/72 H 100 09/26/17 21:11 09/26/17 21:11 09/26/17 21:11 09/26/17 21:11 09/26/17 21:11 Intake & Output 09/25/17 09/26/17 09/27/17 06:59 06:59 06:59 Intake Total 120 400 Balance 120 400 Weight 127.006 kg General appearance: PRESENT: no acute distress, well-developed, well-nourished Head exam: PRESENT: atraumatic, normocephalic Eye exam: PRESENT: conjunctiva pink, EOMI, PERRLA Ear exam: PRESENT: normal external ear exam Mouth exam: PRESENT: moist, tongue midline Neck exam: PRESENT: full ROM Respiratory exam: PRESENT: clear to auscultation ayad Cardiovascular exam: PRESENT: RRR, +S1, +S2 Pulses: PRESENT: normal dorsalis pedis pul, +2 pedal pulses bilateral Vascular exam: PRESENT: normal capillary refill GI/Abdominal exam: PRESENT: normal bowel sounds, soft Rectal exam: PRESENT: deferred Neurological exam: PRESENT: alert, awake, oriented to person, oriented to place , oriented to time, oriented to situation, CN II-XII grossly intact Psychiatric exam: PRESENT: appropriate affect, normal mood Skin exam: PRESENT: dry, intact, warm Results Laboratory Results: 09/25/17 16:30 09/25/17 16:30 Impressions: Abdomen Ultrasound 09/26/17 00:00 IMPRESSION: Trace amount of fluid in the right upper quadrant between the liver and right hemidiaphragm Abdomen/Pelvis CT 09/26/17 00:00 IMPRESSION: Small amount of perihepatic ascites. Multiple varices throughout the upper abdomen. Mild hepatomegaly. Otherwise, No evidence for obstruction or focal acute finding. Qualifiers - * PATEINT BEING DISCHARGED WITH ANY OF THE FOLLOWING DIAGNOSIS?: No VTE patient discharged on overlapping Therapy?: No
== END 2017-09-26 21:37 | disposition home or self-care (01) ==
LOC: UNDOADMOB 15:08 → 2S 15:08 → 2N 09-26 15:53 → 2S 09-26 15:53 → 2N 09-26 15:54
PROVIDERS: ADMIT Internal Medicine; ATTEND Internal Medicine
DX: R18.8 Other ascites (principal); I86.8 Varicose veins of other specified sites; R16.0 Hepatomegaly, not elsewhere classified; E66.01 Morbid (severe) obesity due to excess calories; E11.9 Type 2 diabetes mellitus without complications; I10 Essential (primary) hypertension; Z68.36 Body mass index [BMI] 36.0-36.9, adult; Z79.899 Other long term (current) drug therapy; Z79.84 Long term (current) use of oral hypoglycemic drugs; Z90.49 Acquired absence of other specified parts of digestive tract; Z98.51 Tubal ligation status; Z98.84 Bariatric surgery status; Z96.653 Presence of artificial knee joint, bilateral
CPT/HCPCS: 36415; 74177; 76705; 80053; 81001; 84439; 84443; 85025; 85610

== ENCOUNTER → 2017-10-17 | Outpatient (CLI) | payer MEDICARE, BC ==
--- NOTE | 2017-10-17 15:29 | RADIOLOGY REPORT (SQ) ---
EXAM DESCRIPTION: RIBS LEFT W/PA CHEST COMPLETED DATE/TIME: 10/17/2017 12:54 pm REASON FOR STUDY: R10.12 LEFT UPPER QUADRANT PAIN R07.9 CHEST PAIN, UNSPECIFIED R10.12 LEFT UPPER Q UADRANT PAIN R07.9 CHEST PAIN, UNSPECIFIED COMPARISON: None. TECHNIQUE: Frontal view of the chest and additional views of the left ribs acquired. NUMBER OF VIEWS: Four views LIMITATIONS: None. FINDINGS: FRONTAL CXR: No pneumothorax. No pleural effusion. No atelectasis or infiltrates. RIBS: No displaced rib fractures. No lytic or blastic bony lesions. OTHER: No other significant finding. IMPRESSION: NO PNEUMOTHORAX. NO DISPLACED RIB FRACTURES. COMMENT: SITE OF TRAUMA/COMPLAINT MARKED/STAMP COMPLETED: No TECHNICAL DOCUMENTATION: JOB ID: [id number] [employer]- All Rights Reserved Reading location - IP/workstation name: [email or web address]
[2017-10-19 07:01] LABS: HEPATITIS B SURFACE AB QUAL Non Reactive (.); HEPATITS B SURFACE ANTIGEN Negative (Negative)
[2017-10-20 08:44] LABS: ACTIN (SMOOTH MUSCLE) ANTIBODY 36 Units (0-19); MITOCHONDRIAL (M2) ANTIBODY 8.8 Units (0.0-20.0)
== END ==
LOC: EDBD 12:17 → RAD 12:17
PROVIDERS: ATTEND Physician Assistant Surgical
DX: R10.12 Left upper quadrant pain (principal); R07.9 Chest pain, unspecified; R94.5 Abnormal results of liver function studies
CPT/HCPCS: 36415; 86038; 86235; 86256; 86706; 87340

== ENCOUNTER 2017-10-24 15:51 | Day surgery (SDC) | payer MEDICARE, BC ==
[~2017-10-24 15:51] MED LIST changes: -BUPIVACAINE HCL 0.75% INJ/PF (7.5 MG/1 ML) 10 ML SDV OD PRN; -CHONDR SU A NA/HYALUR INTRAOC KIT (SURGICARE) ONE; +EPINEPHRINE INJ 1 MG/10 ML DISP.SYRIN ONE; +FENTANYL CITRATE INJ/PF 100 MCG/2 ML AMPUL ONE; +FLUMAZENIL INJ 0.5 MG/5 ML VIAL ONE; +GLUCAGON,HUMAN RECOMB 1 MG INJ ONE; -KETOROLAC TROMETHAMINE 0.45% 4 DROP/0.4 ML DROPERETTE OD PRN; -LIDOCAINE 1% INJ-PF (10 MG/ML) 30 ML SDV ONE; -LIDOCAINE 4% INJ/PF (40 MG/ML) 5 ML AMPUL OD PRN; +MIDAZOLAM 2 MG/2 ML INJ ONE; +NALOXONE HCL INJ/PF 0.4 MG/1 ML SDV ONE; -PHENYLEPHRINE/KETOROLAC 1%-0.3% 4 ML VIAL ONE
--- NOTE | 2017-10-24 18:27 | Operative Report ---
Operative Report DATE OF SURGERY: 10/24/17 Operative Report: Pre-op diagnosis: Colon cancer screening and history of cirrhosis Post-op diagnosis: 1. Normal EGD status post gastric bypass 2. Proximal ascending colon polyp 3. Sigmoid colon polyps Surgery: Upper endoscopy with biopsy, Colonoscopy with polypectomy, Endo Clip placement and tattooing Medications: Versed 2mg, Fentanyl 100mcg IV push Tissue removed: Gastric remnant, and colon polyps Procedure: After informed consent obtained from patient, patient's pharynx was sprayed with Hurricane and conscious sedation was achieved. The upper endoscope was then inserted into the esophagus under direct vision and advanced into the stomach and further into the jejunum. Detailed examination of the proximal jejunum, gastric remnant and the esophagus was then performed. A digital rectal examination was performed and this was unremarkable. The colonoscope was inserted into the rectum and advanced to the cecum. The appendiceal orifice and the terminal ileum were both identified. The mucosa was examined into details as the colonoscope was slowly pulled out of the patient. The endoscope was retroflexed in the rectum. Patient tolerated the procedure well. Findings Esophagus: No varices Gastric remnant and anastomosis: Normal Cecum: Normal Ascending colon: 12 mm polyp removed from the proximal ascending colon with a hot snare Transverse colon: Normal Descending colon: Normal Sigmoid colon: 10 mm sessile polyp removed from the proximal sigmoid. Pedunculated 15 mm polyp removed from the mid to sigmoid. The polypectomy sites was closed with the Endo Clip and the site was tattooed Rectum: Normal except for internal hemorrhoids Plan: Repeat colonoscopy in 1 year OPERATION: .
[2017-10-24 18:58] VITALS: BP 145/78
== END 2017-10-24 19:15 | disposition home or self-care (01) ==
LOC: END 15:51
PROVIDERS: ATTEND Internal Medicine Gastroenterology
DX: Z12.11 Encounter for screening for malignant neoplasm of colon (principal); K29.50 Unspecified chronic gastritis without bleeding; D12.2 Benign neoplasm of ascending colon; D12.5 Benign neoplasm of sigmoid colon; R07.9 Chest pain, unspecified; R94.5 Abnormal results of liver function studies; E11.9 Type 2 diabetes mellitus without complications; I10 Essential (primary) hypertension; E66.09 Other obesity due to excess calories; Z79.899 Other long term (current) drug therapy; Z88.1 Allergy status to other antibiotic agents; Z68.37 Body mass index [BMI] 37.0-37.9, adult
CPT/HCPCS: 43239; 45385; 45381; 82962; 88342 ×2; 88305 ×2; J2250; J3010; J0171; J1610; J2310; J3490

== ENCOUNTER 2017-12-13 19:43 | Emergency (ER) | payer MEDICARE, BC ==
--- NOTE | 2017-12-13 20:11 | ER Document Report ---
ED Fall - General Chief Complaint: Fall Stated Complaint: FALL Time Seen by Provider: 12/13/17 20:00 Notes: Patient is a 67 year old female that comes to the ED for chief complaint of fall , patient states that she slipped off of her bed and landed mainly on her right side, she reports that her worst pain is in her right leg/femur area, she states she did hit her head and has a mild headache, she is unsure if she passed out, she denies vomiting. She denies any numbness or incontinence. She is not on a blood thinner. She comes by EMS from home, family at bedside. TRAVEL OUTSIDE OF THE [place] IN LAST 30 DAYS: No - Related data Allergies/Adverse Reactions: Penicillins Allergy (Intermediate, Verified 10/23/17 13:48) Rash Sulfa (Sulfonamide Antibiotics) Allergy (Intermediate, Verified 10/23/17 13:48) RASH IN MOUTH Past Medical History - General Information source: Patient, Relative - Social History Smoking Status: Never Smoker Frequency of alcohol use: None Drug Abuse: None Lives with: Family Family History: Reviewed & Not Pertinent - Past Medical History Cardiac Medical History: Reports: Hx Hypertension Denies: Hx Coronary Artery Disease, Hx Heart Attack Pulmonary Medical History: Denies: Hx Asthma, Hx Bronchitis, Hx COPD, Hx Pneumonia Neurological Medical History: Denies: Hx Cerebrovascular Accident, Hx Seizures Endocrine Medical History: Reports: Hx Diabetes Mellitus Type 2 Renal/ Medical History: Denies: Hx Peritoneal Dialysis GI Medical History: Denies: Hx Hepatitis, Hx Hiatal Hernia, Hx Ulcer Musculoskeltal Medical History: Reports Hx Arthritis - knees, Reports Hx Musculoskeletal Deformity, Reports Hx Musculoskeletal Trauma Infectious Medical History: Denies: Hx Hepatitis Past Surgical History: Reports: Hx Orthopedic Surgery, Other - Cervical fusion, bilateral knee replacements. Denies: Hx Hysterectomy, Hx Mastectomy, Hx Open Heart Surgery, Hx Pacemaker - Immunizations Hx Diphtheria, Pertussis, Tetanus Vaccination: No - unknown Hx Pneumococcal Vaccination: 05/07/09 Review of Systems - Review of Systems Constitutional: No symptoms reported EENT: No symptoms reported Cardiovascular: No symptoms reported Respiratory: No symptoms reported Gastrointestinal: No symptoms reported Genitourinary: No symptoms reported Female Genitourinary: No symptoms reported Musculoskeletal: See HPI Skin: No symptoms reported Hematologic/Lymphatic: No symptoms reported Neurological/Psychological: See HPI Physical Exam - Vital signs Vitals: Temp Pulse Resp BP Pulse Ox 98.8 F 78 18 121/63 100 12/13/17 19:49 12/13/17 19:49 12/13/17 19:49 12/13/17 19:49 12/13/17 19:49 Interpretation: Normal - General General appearance: Appears well, Alert In distress: None - HEENT Head: Normocephalic, Atraumatic Eyes: Normal Pupils: PERRL - Respiratory Respiratory status: No respiratory distress Chest status: Tender - minimal questionable right rib tenderness with no deformity or crepitus Breath sounds: Normal. No: Decreased air movement, Wheezing Chest palpation: Normal - Cardiovascular Rhythm: Regular. No: Tachycardia Heart sounds: Normal auscultation, S1 appreciated, S2 appreciated Murmur: No - Abdominal Inspection: Normal Distension: No distension Bowel sounds: Normal Tenderness: Nontender Organomegaly: No organomegaly - Back Back: Tender - Patient has very generalized mild cervical tenderness which is nonspecific, she has mild lumbar tenderness as well, no saddle anesthesia, moves all extremities and full range of motion, normal distal neurovascular exam - Extremities General upper extremity: Normal inspection, Nontender, Normal ROM, Normal strength General lower extremity: Other - pain over right proximal femur near the hip joint; mild generalized pain over the knee. Multiple surgical scars over the femur and right knee. Normal distal N/V exam, no deformity, otherwise unremarkable - Neurological Neuro grossly intact: Yes Cognition: Normal Orientation: AAOx4 [place] Coma Scale Eye Opening: Spontaneous Chris Coma Scale Verbal: Oriented [place] Coma Scale Motor: Obeys Commands [place] Coma Scale Total: 15 Speech: Normal Motor strength normal: LUE, RUE, LLE, RLE Sensory: Normal - Psychological Associated symptoms: Normal affect, Normal mood - Skin Skin Temperature: Warm Skin Moisture: Dry Skin Color: Normal Course - Re-evaluation Re-evalutation: Patient alert, neurologically intact, decision was made to perform CAT scan of the head and neck because she was not sure if she hit her head although she does not complain of headache, this was unremarkable. X-ray imaging including ribs, hip, knee do not show any obvious acute abnormality. Questionable fracture of the patella, I discussed with patient, this is old, I showed her pictures and she confirms this is old, she did not have direct impact over the patella, she does not have significant tenderness over the area suggesting acute fracture. Patient asked for something for pain for soreness, she was given this, afterwards patient ambulated around quite easily and without any difficulty. Very low suspicion of hip fracture not visualized or other acute abnormality, patient is very well-appearing. Patient did request some pain management, because of her extensive previous fractures and surgeries along with her recent fall I discussed with patient and family and decision was made to give patient a small amount. Discussed follow-up in the next few days with her provider, return precautions, patient and family state understanding and agreement. Note: There was a very long delay with the lumbar imaging, she had very mild generalized tenderness over the, no neurological deficits, appears to be arthritis with no acute findings per my read but difficult to tell, because of extended wait decision was made to discharge patient. At 1 AM on 12/14/2017 there was still no read despite radiology being contacted twice. 12/14/17 01:35 Radiology report on lumbar spine is now complete, shows chronic changes with no acute findings, no adjustment necessary in treatment plan. - Vital Signs Vital signs: Temp Pulse Resp BP Pulse Ox 98.2 F 86 16 132/83 H 99 12/13/17 22:46 12/13/17 22:46 12/13/17 22:46 12/13/17 22:46 12/13/17 22:46 Discharge - Discharge Clinical Impression: Right leg pain, Right hip pain, Rib pain, Neck pain Fall Qualifiers: Encounter type: initial encounter Qualified Code(s): W19.XXXA - Unspecified fall, initial encounter Condition: Stable Disposition: HOME, SELF-CARE Additional Instructions: Your evaluation and imaging did not show any new concerning findings. You will likely be progressively sore for the next couple of days. You have been provided with some pain medication to take, use with caution as these can cause some sedation and increased your fall risk if you are not careful. Use the Colace stool softener if you take the pain medicine. Take Tylenol or ibuprofen instead if possible. Follow-up with your provider in the next several days for a reevaluation. A disability case manager consult has been placed, they will be following up with you to help assess for needs. Return if you worsen including vomiting, severe headache, difficulty breathing, pain in your abdomen, passing out, or any other concerning or worsening symptoms. Prescriptions: Docusate Sodium [Colace 100 mg Capsule] 100 mg PO ASDIR PRN #30 capsule PRN Reason: Hydrocodone/Acetaminophen [[place] 5-325 mg Tablet] 1 - 2 tab PO ASDIR #8 tablet Referrals: DARLENE BANSAL MD [Primary Care Provider] - Follow up as needed
--- NOTE | 2017-12-13 21:30 | RADIOLOGY REPORT (SQ) ---
EXAM DESCRIPTION: KNEE RIGHT 2 VIEWS COMPLETED DATE/TIME: 12/13/2017 9:16 pm REASON FOR STUDY: fall, pain COMPARISON: 11/28/2010 NUMBER OF VIEWS: Two views. TECHNIQUE: AP and lateral radiographic images acquired of the right knee. LIMITATIONS: None. FINDINGS: MINERALIZATION: Severe osteopenia BONES: There is a transverse distracted fracture of the patella which is age indeterminate. Marked p ostoperative changes with total knee placement. Sequelae from previous fracture. JOINT: No effusion. SOFT TISSUES: No soft tissue swelling. No radio-opaque foreign body. OTHER: No other significant finding. IMPRESSION: Extensive postsurgical and posttraumatic changes which remote. There is a transverse di stracted fracture of the patella which is age indeterminate. TECHNICAL DOCUMENTATION: JOB ID: [id number] [employer]- All Rights Reserved Reading location - IP/workstation name: [email or web address]
--- NOTE | 2017-12-13 21:33 | RADIOLOGY REPORT (SQ) ---
EXAM DESCRIPTION: RIBS RIGHT W/PA CHEST COMPLETED DATE/TIME: 12/13/2017 9:16 pm REASON FOR STUDY: fall, pain COMPARISON: None. TECHNIQUE: Frontal view of the chest and additional views of the right ribs acquired. NUMBER OF VIEWS: Four view. LIMITATIONS: None. FINDINGS: FRONTAL CXR: No pneumothorax. No pleural effusion. No atelectasis or infiltrates. RIBS: No displaced rib fractures. No lytic or blastic bony lesions. OTHER: No other significant finding. IMPRESSION: NO PNEUMOTHORAX. NO DISPLACED RIB FRACTURES. COMMENT: SITE OF TRAUMA/COMPLAINT MARKED/STAMP COMPLETED: No TECHNICAL DOCUMENTATION: JOB ID: [id number] [employer]- All Rights Reserved Reading location - IP/workstation name: [email or web address]
--- NOTE | 2017-12-13 21:35 | RADIOLOGY REPORT (SQ) ---
EXAM DESCRIPTION: CT CERVICAL SPINE WITHOUT COMPLETED DATE/TIME: 12/13/2017 9:25 pm REASON FOR STUDY: fall, neck pain COMPARISON: None. TECHNIQUE: Axial images acquired through the cervical spine without intravenous contrast. Images re viewed with lung, soft tissue and bone windows. Reconstructed coronal and sagittal MPR images review ed. Images stored on PACS. All CT scanners at this facility use dose modulation, iterative reconstruction, and/or weight based d osing when appropriate to reduce radiation dose to as low as reasonably achievable (ALARA). [facility]: Dose Right [facility]: CareDose [facility]: Dose Right [facility]: Teradose 4D [facility]: [employer] RADIATION DOSE: CT Rad equipment meets quality standard of care and radiation dose reduction techniq ues were employed. CTDIvol: 18.3 mGy. DLP: 390 mGy-cm. mGy. LIMITATIONS: None. FINDINGS: ALIGNMENT: Anatomic. MINERALIZATION: Normal. VERTEBRAL BODIES: No fractures or dislocation. DISCS: [facility] disc space implants are present C4-5 and C5-6. FACETS, LATERAL MASSES, POSTERIOR ELEMENTS: No fractures. No dislocation. No acute findings. HARDWARE: The anterior plate extends from C4-C6 with screws extending into the vertebral bodies. VISUALIZED RIBS: No fractures. LUNG APICES AND SOFT TISSUES: No significant or acute findings. OTHER: No other significant finding. IMPRESSION: Prior ACDF at C4-C6. No acute abnormality in the cervical spine. TECHNICAL DOCUMENTATION: JOB ID: [id number] Quality ID # [id number]: Final reports with documentation of one or more dose reduction techniques (e.g., Au tomated exposure control, adjustment of the mA and/or kV according to patient size, use of iterative reconstruction technique) 2010 [employer]- All Rights Reserved Reading location - IP/workstation name: [email or web address]
--- NOTE | 2017-12-13 21:36 | RADIOLOGY REPORT (SQ) ---
EXAM DESCRIPTION: CT HEAD WITHOUT COMPLETED DATE/TIME: 12/13/2017 9:25 pm REASON FOR STUDY: fall, headache, ? LOC COMPARISON: 11/28/2010 TECHNIQUE: Axial images acquired through the brain without intravenous contrast. Images reviewed wi th bone, brain and subdural windows. Additional sagittal and coronal reconstructions were generated. Images stored on PACS. All CT scanners at this facility use dose modulation, iterative reconstruction, and/or weight based d osing when appropriate to reduce radiation dose to as low as reasonably achievable (ALARA). [facility]: Dose Right [facility]: CareDose [facility]: Dose Right [facility]: Teradose 4D [facility]: [employer] RADIATION DOSE: CT Rad equipment meets quality standard of care and radiation dose reduction techniq ues were employed. CTDIvol: 53.2 mGy. DLP: 1044 mGy-cm. mGy. LIMITATIONS: None. FINDINGS: VENTRICLES: Normal size and contour. CEREBRUM: No masses. No hemorrhage. No midline shift. No evidence for acute infarction. Normal gra y/white matter differentiation. No areas of low density in the white matter. CEREBELLUM: No masses. No hemorrhage. No alteration of density. No evidence for acute infarction. EXTRAAXIAL SPACES: No fluid collections. No masses. ORBITS AND GLOBE: No intra- or extraconal masses. Normal contour of globe without masses. CALVARIUM: No fracture. PARANASAL SINUSES: No fluid or mucosal thickening. SOFT TISSUES: No mass or hematoma. OTHER: No other significant finding. IMPRESSION: NORMAL BRAIN CT WITHOUT CONTRAST. EVIDENCE OF ACUTE STROKE: NO. COMMENT: Quality ID # [id number]: Final reports with documentation of one or more dose reduction techniques (e.g., Automated exposure control, adjustment of the mA and/or kV according to patient size, use of iterative reconstruction technique) TECHNICAL DOCUMENTATION: JOB ID: [id number] [employer]- All Rights Reserved Reading location - IP/workstation name: [email or web address]
--- NOTE | 2017-12-13 21:47 | RADIOLOGY REPORT (SQ) ---
EXAM DESCRIPTION: HIP RIGHT AP/LATERAL COMPLETED DATE/TIME: 12/13/2017 9:16 pm REASON FOR STUDY: fall, pain COMPARISON: None. NUMBER OF VIEWS: Two views. TECHNIQUE: AP pelvis and additional frog-leg view of the right hip. LIMITATIONS: None. FINDINGS: MINERALIZATION: Normal. RIGHT HIP: No fracture or dislocation. No worrisome bone lesions. LEFT HIP: No fracture or dislocation. No worrisome bone lesions. PUBIS AND ISCHIUM: No fracture. PELVIS: No fracture. SACRUM: No fracture or dislocation. No worrisome bone lesions. LOWER LUMBAR SPINE: No fracture or dislocation. No worrisome bone lesions. No significant disc disea se. SOFT TISSUES: No findings. OTHER: No other significant finding. IMPRESSION: NEGATIVE STUDY OF THE RIGHT HIP. NO RADIOGRAPHIC EVIDENCE OF ACUTE INJURY. TECHNICAL DOCUMENTATION: JOB ID: [id number] [employer]- All Rights Reserved Reading location - IP/workstation name: [email or web address]
[2017-12-13] MEDS ORDERED: HYDROCODONE/ACETAMINOPHEN 5-325 MG TABLET PO ONE (22:09)
[2017-12-13] MEDS ORDERED: HYDROCODONE/ACETAMINOPHEN 5-325 MG (6 TAB/ER DISP) PO PRN (22:36)
[2017-12-13 22:48] VITALS: BP 132/83
--- NOTE | 2017-12-14 01:35 | RADIOLOGY REPORT (SQ) ---
EXAM DESCRIPTION: CR Xr Lumbar Spine Anteroposterior, Lateral, And Obliques CLINICAL HISTORY: 67 years, Female, fall, pain COMPARISON: CT, abdomen, 09/26/2017, 10/13/2015. NUMBER OF VIEWS: 5 LIMITATIONS: None. FINDINGS: Moderate -severe L1 compression deformity stable compared with prior CT October 2015, mild L2 compression deformity, mild disc desiccation, and moderate spondylosis. 0.8 cm L1 retrolisthesis with chronic moderate-severe L1-L2 spinal canal stenosis., 0.2 cm L2 retrolisthesis, and 0.2 cm L4 anterolisthesis. Bone demineralization. Left upper abdominal and pelvic clips. Stable. IMPRESSION: Chronic, moderate-severe L1 compression deformity, 0.8 cm L1 retrolisthesis, and moderate-severe L1-L2 spinal canal stenosis.
== END 2017-12-13 23:15 | disposition home or self-care (01) ==
LOC: ER 19:43
DX: M89.8X5 Other specified disorders of bone, thigh (principal); R51 Headache; M25.551 Pain in right hip; R07.81 Pleurodynia; M54.2 Cervicalgia; M25.569 Pain in unspecified knee; W06.XXXA Fall from bed, initial encounter; Y92.003 Bedroom of unspecified non-institutional (private) residence as the place of occurrence of the external cause; E11.9 Type 2 diabetes mellitus without complications; I10 Essential (primary) hypertension; Z88.0 Allergy status to penicillin; Z88.2 Allergy status to sulfonamides; Z98.1 Arthrodesis status
CPT/HCPCS: 99284; 73502; 73560; 72110; 71101; 70450; 72125; A9270 ×2

== ENCOUNTER 2018-01-15 15:28 | Emergency (ER) | payer MEDICARE, BC ==
[2018-01-15] MEDS ORDERED: ACETAMINOPHEN 325 MG TABLET PO ONE (15:46)
--- NOTE | 2018-01-15 15:55 | ER Document Report ---
HPI - HPI Pain Level: 2 Notes: Patient is a 67-year-old female who presents to the ED complaining of right knee pain, right ankle pain, right foot pain, left fifth digit pain, and left rib pain status post fall prior to arrival. Patient states that she was walking out of her bathroom when she tripped on the raised area of the floor and landed on her knees. Patient states that she did have bilateral knee replacement performed previously and has chronic edema in both knees. Patient states that she did not hit her head/neck, nor did she lose any consciousness or have any nausea/vomiting. Patient states that she hurt her finger on the way down. Patient states that she did not actually hit her ribs on anything either. She has no other concerns or complaints at this time. Denies any headache, fever, head injury, neck pain, URI, sore throat, chest pain, palpitations, syncope, cough, shortness of breath, wheeze, dyspnea, abdominal pain, nausea/vomiting/diarrhea, urinary retention, dysuria, hematuria, loss of control of bowel or bladder, numbness/tingling, saddle anesthesia, muscle paralysis/weakness, or rash. - ROS Systems Reviewed and Negative: Yes All other systems reviewed and negative - CONSTITUTIONAL Constitutional: DENIES: Fever, Chills - EENT EENT: DENIES: Sore Throat, Ear Pain, Eye problems - NEURO Neurology: DENIES: Headache, Weakness, Vision blurred, Dizzinesss / Vertigo - CARDIOVASCULAR Cardiovascular: DENIES: Chest pain - RESPIRATORY Respiratory: DENIES: Trouble Breathing, Coughing - GASTROINTESTINAL Gastrointestinal: DENIES: Abdominal Pain, Black / Bloody Stools - URINARY Urinary: DENIES: Dysuria, Urgency, Frequency - MUSCULOSKELETAL Musculoskeletal: REPORTS: Extremity pain Past Medical History - Social History Smoking Status: Never Smoker Chew tobacco use (# tins/day): No Frequency of alcohol use: None Drug Abuse: None Family History: Reviewed & Not Pertinent Patient has suicidal ideation: No Patient has homicidal ideation: No - Past Medical History Cardiac Medical History: Reports: Hx Hypertension Denies: Hx Coronary Artery Disease, Hx Heart Attack Pulmonary Medical History: Denies: Hx Asthma, Hx Bronchitis, Hx COPD, Hx Pneumonia Neurological Medical History: Denies: Hx Cerebrovascular Accident, Hx Seizures Endocrine Medical History: Reports: Hx Diabetes Mellitus Type 2 Renal/ Medical History: Denies: Hx Peritoneal Dialysis GI Medical History: Denies: Hx Hepatitis, Hx Hiatal Hernia, Hx Ulcer Musculoskeltal Medical History: Reports Hx Arthritis - knees, Reports Hx Musculoskeletal Deformity, Reports Hx Musculoskeletal Trauma Infectious Medical History: Denies: Hx Hepatitis Past Surgical History: Reports: Hx Orthopedic Surgery, Other - Cervical fusion, bilateral knee replacements. Denies: Hx Hysterectomy, Hx Mastectomy, Hx Open Heart Surgery, Hx Pacemaker - Immunizations Hx Diphtheria, Pertussis, Tetanus Vaccination: No - unknown Hx Pneumococcal Vaccination: 05/07/09 Vertical Provider Document - CONSTITUTIONAL Agree With Documented VS: Yes Notes: PHYSICAL EXAMINATION: accompanied by female nurse GENERAL: Well-appearing, well-nourished and in no acute distress. A&Ox4. Answers questions appropriately. HEAD: Atraumatic, normocephalic. Non-tender. No mayes sign EYES: Pupils equal round and reactive to light, extraocular movements intact, sclera anicteric, conjunctiva are normal. No raccoon eyes/entrapment ENT: EAC clear b/l. TM's intact b/l without erythema, fluid, or perforation. Nares patent and without discharge. oropharynx clear without exudates. No tonsilar hypertrophy or erythema. Moist mucous membranes. No sinus tenderness. No hemotympanum/CSF discharge. NECK: Normal range of motion, supple without lymphadenopathy. No rigidity. No midline tenderness. Spurling negative. NEXUS negative. Chest: No flail chest. equal rise/fall. Non-tender. + mild tenderness to the left lateral ribs to palp. LUNGS: Breath sounds clear to auscultation bilaterally and equal. No wheezes rales or rhonchi. HEART: Regular rate and rhythm without murmurs, rubs, gallops. ABDOMEN: Soft, nontender, nondistended abdomen. No guarding, no rebound. No masses appreciated. Normal bowel sounds present. No CVA tenderness bilaterally. Musculoskeletal: + tenderness to the rt anterior knee, b/l malleoli of the rt ankle, and distal dorsal foot. There is no erythema, ecchymosis, or deformity noted. + large edema b/l knees. N/V intact distal. FROM throughout. Strength 5+/5. Achilles intact. Back: FROM to passive/active. Strength 5+/5. No vertebral point tenderness, stepoffs, or deformities. No other bony tenderness or ecchymosis. SLR negative b/l. Extremities: No cyanosis, clubbing, or edema b/l. Peripheral pulses 2+. Capillary refill less than 2 seconds. NEUROLOGICAL: NIH 0. GCS 15. Cranial nerves grossly intact. Normal speech, normal gait. Normal sensory, motor exams. Reflexes 2+ b/l. YARIEL's negative. Pronator drift negative. Heel/haile, finger/nose wnl. PSYCH: Normal mood, normal affect. SKIN: Warm, Dry, normal turgor, no rashes or lesions noted. - INFECTION CONTROL TRAVEL OUTSIDE OF THE [place] IN LAST 30 DAYS: No Course - Re-evaluation Re-evalutation: 01/15/18 17:10 Patient is an afebrile, well-hydrated, 67-year-old female who presents to the ED with a nondisplaced avulsion fracture of the PIP joint of the left fifth digit of the hand. Otherwise she presents with contusions status post fall. Vitals are acceptable. She has no significant tachycardia, tachypnea, or hypoxia. PE is otherwise unremarkable for any neurovascular compromise, obvious tendon/ligament rupture, dislocation, open fracture, septic joint. X- rays of the left ribs, PA chest, right knee, right ankle, right foot were unremarkable for any acute pathology otherwise. Finger splint placed today. Patient was given Tylenol p.o. no other labs or imaging warranted at this time based on H&P. NIH 0, GCS 15, cranial nerves grossly intact. Nexus criteria negative. CT Prosser head criteria negative. I will send her home with a [employer] dispense pack. Conservative measures otherwise for symptoms. Call orthopedics tomorrow to set up an appointment for further evaluation and management. Recheck with your PCM as needed otherwise. Return to the ED with any worsening/concerning symptoms otherwise as reviewed discharge. Patient is in agreement. - Vital Signs Vital signs: Temp Pulse Resp BP Pulse Ox 97.7 F 65 14 132/83 H 100 01/15/18 15:35 01/15/18 15:35 01/15/18 15:35 01/15/18 15:35 01/15/18 15:35 Discharge - Discharge Clinical Impression: Rib pain on left side Finger fracture, left Qualifiers: Encounter type: initial encounter Finger: little finger Fracture type: closed Phalanx: proximal Fracture alignment: nondisplaced Qualified Code(s): S62.647A - Nondisplaced fracture of proximal phalanx of left little finger, initial encounter for closed fracture Acute knee pain Qualifiers: Laterality: right Qualified Code(s): M25.561 - Pain in right knee Right ankle pain Qualifiers: Chronicity: acute Qualified Code(s): M25.571 - Pain in right ankle and joints of right foot Condition: Stable Disposition: HOME, SELF-CARE Instructions: Contusion ([facility]), Fractured Finger ([facility]) Additional Instructions: Rest, Ice, Compression, Elevation Use splint as directed Tylenol/ibuprofen as needed Light stretches daily Strength exercises as able Moist heat and massage may help F/u with your PCP in 3-5 days for a recheck Call orthopedics tomorrow to set up an appointment for further evaluation and management Return to the ED with any worsening symptoms and/or development of fever, headache, chest pain, palpitations, syncope, shortness of breath, trouble breathing, abdominal pain, n/v/d, muscle weakness/paralysis, numbness/tingling, swelling, redness, or other worsening symptoms that are concerning to you. Forms: Elevated Blood Pressure Referrals: DARLENE BANSAL MD [Primary Care Provider] - Follow up in 3-5 days [facility] [Provider Group] - Follow up in 3-5 days
--- NOTE | 2018-01-15 16:49 | RADIOLOGY REPORT (SQ) ---
EXAM DESCRIPTION: FINGER LEFT COMPLETED DATE/TIME: 01/15/2018 4:22 pm REASON FOR STUDY: pain s/p fall COMPARISON: None. NUMBER OF VIEWS: Three views. TECHNIQUE: AP, lateral, and oblique images acquired of the left fifth digit of the left hand LIMITATIONS: None. FINDINGS: MINERALIZATION: Osteopenia. BONES: Small nondisplaced intra-articular avulsion fracture base of the middle phalanx fifth digit a t the proximal interphalangeal joint. A small well-circumscribed 3.4 mm lucent lesion in the midshaf t of the middle phalanx of the fifth digit may represent a nonaggressive finding. SOFT TISSUES: No soft tissue swelling. No foreign body. OTHER: No other significant finding. IMPRESSION: 1 Small nondisplaced intra-articular avulsion fracture, base of the middle phalanx fifth digit, at the proximal interphalangeal joint. COMMENT: SITE OF TRAUMA/COMPLAINT MARKED/STAMP COMPLETED: NO. TECHNICAL DOCUMENTATION: JOB ID: [id number] [employer]- All Rights Reserved Reading location - IP/workstation name: [email or web address]
--- NOTE | 2018-01-15 16:53 | RADIOLOGY REPORT (SQ) ---
EXAM DESCRIPTION: ANKLE RIGHT COMPLETE COMPLETED DATE/TIME: 01/15/2018 4:22 pm REASON FOR STUDY: pain s/p fall COMPARISON: None. NUMBER OF VIEWS: Three views. TECHNIQUE: AP, lateral, and oblique radiographic images acquired of the right ankle. LIMITATIONS: None. FINDINGS: MINERALIZATION: Osteopenia. Normal. BONES: No acute fracture or dislocation. Calcaneal spurs. JOINTS: Mild degenerative changes at the ankle joint. No effusions. SOFT TISSUES: No soft tissue swelling. No foreign body. OTHER: No other significant finding. IMPRESSION: NEGATIVE STUDY OF THE RIGHT ANKLE. TECHNICAL DOCUMENTATION: JOB ID: [id number] [employer]- All Rights Reserved Reading location - IP/workstation name: [email or web address]
--- NOTE | 2018-01-15 16:57 | RADIOLOGY REPORT (SQ) ---
EXAM DESCRIPTION: FOOT RIGHT COMPLETE COMPLETED DATE/TIME: 01/15/2018 4:22 pm REASON FOR STUDY: pain s/p fall COMPARISON: None. NUMBER OF VIEWS: Three views. TECHNIQUE: AP, lateral and oblique radiographic images acquired of the right foot. LIMITATIONS: None. FINDINGS: MINERALIZATION: Osteopenia. BONES: Deformities involving the proximal second through the fifth metatarsal bones, may be related prior remote trauma. Calcaneal spurs. JOINTS: Subluxations at the second through the fifth metatarsal phalangeal joints. Mild degenerativ e changes at the midfoot, interphalangeal and metacarpophalangeal joints. SOFT TISSUES: Soft tissue vascular calcifications. No soft tissue swelling. No foreign body. OTHER: No other significant finding. IMPRESSION: 1 No acute osseous findings. 2 Degenerative changes at the midfoot, interphalangeal and metacarpophalangeal joints and midfoot. TECHNICAL DOCUMENTATION: JOB ID: [id number] [employer]- All Rights Reserved Reading location - IP/workstation name: [email or web address]
--- NOTE | 2018-01-15 17:00 | RADIOLOGY REPORT (SQ) ---
EXAM DESCRIPTION: RIBS LEFT W/PA CHEST COMPLETED DATE/TIME: 01/15/2018 4:22 pm REASON FOR STUDY: pain s/p fall COMPARISON: None. TECHNIQUE: Frontal view of the chest and additional views of the left ribs acquired. NUMBER OF VIEWS: Three view. LIMITATIONS: None. FINDINGS: FRONTAL CXR: No pneumothorax. No pleural effusion. No atelectasis or infiltrates. RIBS: No acute displaced rib fractures. No lytic or blastic bony lesions. OTHER: Multiple surgical metallic clips and sutures in the left upper quadrant of the abdomen. Prio r cholecystectomy. IMPRESSION: 1 No acute pulmonary findings. 2 No pneumothorax. 3 No acute displaced rib fracture. COMMENT: SITE OF TRAUMA/COMPLAINT MARKED/STAMP COMPLETED: NO. TECHNICAL DOCUMENTATION: JOB ID: [id number] [employer]- All Rights Reserved Reading location - IP/workstation name: [email or web address]
[2018-01-15] MEDS ORDERED: HYDROCODONE/ACETAMINOPHEN 5-325 MG (6 TAB/ER DISP) PO PRN (17:05)
--- NOTE | 2018-01-15 17:11 | RADIOLOGY REPORT (SQ) ---
EXAM DESCRIPTION: KNEE RIGHT 4 VIEWS COMPLETED DATE/TIME: 01/15/2018 4:22 pm REASON FOR STUDY: pain s/p fall COMPARISON: Knee films 11/28/2010, 06/06/2011 NUMBER OF VIEWS: Four views. TECHNIQUE: AP, lateral, and both oblique radiographic images acquired of the right knee. LIMITATIONS: None. FINDINGS: MINERALIZATION: Osteoporotic BONES: On the lateral view, there is a transverse fracture of the patella with separation of the mcleod llar fragments by about 2 cm. This is similar compared to 12/13/2017. Extensive bony remodeling along the distal femur related to an old healed distal right femoral metaph ysis fracture, unchanged from prior studies. Patient has a lateral distal femoral fixation plate, and the right total knee replacement with fusion hardware between the distal femur and proximal tibia, unchanged from prior studies. No acute fractures identified JOINT: No effusion. SOFT TISSUES: No soft tissue swelling. No radio-opaque foreign body. OTHER: No other significant finding. IMPRESSION: No acute fracture Old patellar fracture, old distal femoral metaphysis fracture Fusion across the knee joint with hardware and knee joint prosthesis TECHNICAL DOCUMENTATION: JOB ID: [id number] [employer]- All Rights Reserved Reading location - IP/workstation name: [email or web address]
[2018-01-15 17:29] VITALS: BP 122/96
== END 2018-01-15 17:28 | disposition home or self-care (01) ==
LOC: ER 15:28
PROC: 2W3KX1Z Immobilization of Left Finger using Splint (ICD-10-PCS; principal; 2018-01-15)
DX: S62.647A Nondisplaced fracture of proximal phalanx of left little finger, initial encounter for closed fracture (principal); M25.561 Pain in right knee; M25.571 Pain in right ankle and joints of right foot; M79.671 Pain in right foot; R07.81 Pleurodynia; M79.645 Pain in left finger(s); W01.0XXA Fall on same level from slipping, tripping and stumbling without subsequent striking against object, initial encounter; I10 Essential (primary) hypertension; E11.9 Type 2 diabetes mellitus without complications
CPT/HCPCS: 99283; 73610; 73140; 73630; 73564; 71101; 29130; A9270 ×2

== ENCOUNTER 2018-02-03 20:38 | Emergency (ER) | payer MEDICARE, BC ==
--- NOTE | 2018-02-03 21:29 | ER Document Report ---
ED Medical Screen (RME) - General Chief Complaint: Low Back Pain Stated Complaint: TAILBONE PAIN Time Seen by Provider: 02/03/18 21:26 Mode of Arrival: Ambulatory Information source: Patient TRAVEL OUTSIDE OF THE [place] IN LAST 30 DAYS: No - HPI Patient complains to provider of: back pain Notes: 02/03/18 21:27 This is a morbidly obese female who was here asked me 3 weeks ago after having a fall. She was noted to have compression fractures to the lumbar spine. States that she still has some bruising to her sacral area and seems to be having increasing pain. She has been taking ibuprofen and [place] without any relief of pain. She has had a few falls since that occurred. She denies any bowel or bladder dysfunction. She denies any numbness, tingling, weakness. Physical exam: Large ecchymotic area to the sacrum. Tenderness to the lumbar spine as well as the sacrum and left sacroiliac area. Patient's nontoxic- appearing and in no distress. An initial examination was made on the patient as part of the triage process, and it was determined a more comprehensive evaluation was necessary. Initial labs were ordered and patient was transferred to another provider in the ED who assumed care and finished evaluation and plan. - Related Data Allergies/Adverse Reactions: Penicillins Allergy (Intermediate, Verified 02/03/18 21:23) Rash Sulfa (Sulfonamide Antibiotics) Allergy (Intermediate, Verified 02/03/18 21:23) RASH IN MOUTH Past Medical History - Social History Chew tobacco use (# tins/day): No Frequency of alcohol use: None Drug Abuse: None - Past Medical History Cardiac Medical History: Reports: Hx Hypertension Denies: Hx Coronary Artery Disease, Hx Heart Attack Pulmonary Medical History: Denies: Hx Asthma, Hx Bronchitis, Hx COPD, Hx Pneumonia Neurological Medical History: Denies: Hx Cerebrovascular Accident, Hx Seizures Endocrine Medical History: Reports: Hx Diabetes Mellitus Type 2 Renal/ Medical History: Denies: Hx Peritoneal Dialysis GI Medical History: Denies: Hx Hepatitis, Hx Hiatal Hernia, Hx Ulcer Musculoskeltal Medical History: Reports Hx Arthritis - knees, Reports Hx Musculoskeletal Deformity, Reports Hx Musculoskeletal Trauma Infectious Medical History: Denies: Hx Hepatitis Past Surgical History: Reports: Hx Orthopedic Surgery, Other - Cervical fusion, bilateral knee replacements. Denies: Hx Hysterectomy, Hx Mastectomy, Hx Open Heart Surgery, Hx Pacemaker - Immunizations Hx Diphtheria, Pertussis, Tetanus Vaccination: No - unknown History of Influenza Vaccine for 05/2017 - 10/2017 Season: Yes Influenza Administration Date for 05/2017 - 10/2017 Season: 04/07/17 Physical Exam - Vital signs Vitals: Temp Pulse Resp BP Pulse Ox 98.0 F 96 20 132/64 H 99 02/03/18 20:46 02/03/18 20:46 02/03/18 20:46 02/03/18 20:46 02/03/18 20:46 Course - Vital Signs Vital signs: Temp Pulse Resp BP Pulse Ox 98.0 F 96 20 132/64 H 99 02/03/18 20:46 02/03/18 20:46 02/03/18 20:46 02/03/18 20:46 02/03/18 20:46 Doctor's Discharge - Discharge Referrals: DARLENE BANSAL MD [Primary Care Provider] - Follow up as needed
--- NOTE | 2018-02-03 23:36 | RADIOLOGY REPORT (SQ) ---
EXAM DESCRIPTION: 1. CT of the pelvis without contrast. 2. CT of the lumbar spine without contrast. COMPLETED DATE/TME: 02/03/2018 21:26 EXAM DESCRIPTION: CT ABDOMEN AND PELVIS WITHOUT CONTRAST CLINICAL HISTORY: fall 3 weeks ago, worsening pain COMPARISON: 09/26/2017 and 12/13/2017 TECHNIQUE: 1. CT of the lumbar spine and pelvis obtained without IV contrast. Evaluation of the solid organs and vasculature is suboptimal due to lack of IV contrast. Sagittal and coronal reformatted images available. DLP: 1974 mGy-cm FINDINGS: Lumbar spine: Stable wedge compression deformity of the L1 vertebral body with approximately 80% loss of anterior vertebral body height. No new compression deformities identified. No acute cortical step-off or subluxation identified. Paravertebral soft tissues demonstrate no acute findings. Moderate loss of intervertebral disc height at T11/T12, T12/L1, L1/L2, and L2/L3. There is diffuse endplate spondylosis and facet arthropathy throughout the lumbar spine. Degenerative spurring of the sacroiliac joints. Multilevel broad-based posterior disc bulges at L1/2 through L5/S1. Multilevel moderate to severe osseous neural foraminal narrowing, most severe at L1/2. Posteriorly projecting osteophyte narrows the spinal canal at L2 with residual canal diameter measuring 0.6 cm. At the remaining lumbar levels there is effacement of the anterior spinal canal by posterior disc bulge and posterior osteophytes without definite central canal narrowing. Prior cholecystectomy. Postoperative change in the stomach. Right renal cyst. Aortoiliac atherosclerosis. No other acute abnormalities of visualized portions of the abdomen. Pelvis: Bladder: Urinary bladder is unremarkable. Bowel: Postoperative change of the small bowel. No dilated loops of the visualized large or small bowel. Small fat-containing umbilical hernia. Appendix: Normal appendix. Pelvis: Uterus is not enlarged. Bony pelvis: Osteopenia. Degenerative spurring of the sacroiliac joints as well as degenerative spondylosis of the visualized lumbar spine. Moderate to severe joint space narrowing and marginal osteophytosis of the hips. Acute/subacute fracture of the sacrum at the S4 level with minimal anterior subluxation of the distal fracture fragment. No acute fractures of the proximal femurs identified. IMPRESSION: 1. Acute/subacute fracture of the sacrum at the S4 level with with mild anterior subluxation of the more inferior fracture fragment of approximately 5 mm. 2. No acute abnormalities of the lumbar spine. 3. Severe multilevel degenerative change of the lumbar spine, most severe at L1/2 there is narrowing of the spinal canal to 6 mm. This exam was performed according to our departmental dose-optimization program, which includes automated exposure control, adjustment of the mA and/or kV according to patient size and/or use of iterative reconstruction technique.
[2018-02-04] MEDS ORDERED: MORPHINE SULFATE IR 15 MG TABLET PO ONE (01:33)
[2018-02-04] MEDS ORDERED: IBUPROFEN 600 MG TABLET PO ONE (01:33)
[2018-02-04] MEDS ORDERED: IBUPROFEN 400 MG TABLET PO ONE (01:56)
[2018-02-04] MEDS ORDERED: LIDOCAINE 5% (700 MG) TRANSDERMAL ADH..PATCH TP ONE (01:56)
[2018-02-04] MEDS ORDERED: ACETAMINOPHEN 325 MG TABLET PO ONE (01:56)
--- NOTE | 2018-02-04 02:05 | ER Document Report ---
ED General - General Chief Complaint: Low Back Pain Stated Complaint: TAILBONE PAIN Time Seen by Provider: 02/03/18 21:26 Mode of Arrival: Ambulatory Notes: Patient is a 67 year old female who presents after having a mechanical fall 3 weeks ago landing onto her sacrum and buttocks. She reports that since that time she has had a dull, throbbing, constant pain to her sacral area that has been getting progressively worse prompting her to come to the emergency department tonight. She states that she did see her primary care doctor but "they really did not look at that area". She states that she has been using Tylenol at home without any significant relief. Sitting on the area or touching the area worsens the pain. She denies any difficulty walking, focal weakness or numbness. No history of similar injuries in the past. TRAVEL OUTSIDE OF THE [place] IN LAST 30 DAYS: No - Related Data Allergies/Adverse Reactions: Penicillins Allergy (Intermediate, Verified 02/03/18 21:23) Rash Sulfa (Sulfonamide Antibiotics) Allergy (Intermediate, Verified 02/03/18 21:23) RASH IN MOUTH Past Medical History - General Information source: Patient - Social History Smoking Status: Never Smoker Chew tobacco use (# tins/day): No Frequency of alcohol use: None Drug Abuse: None Lives with: Spouse/Significant other Family History: Reviewed & Not Pertinent Patient has suicidal ideation: No Patient has homicidal ideation: No - Past Medical History Cardiac Medical History: Reports: Hx Hypertension Denies: Hx Coronary Artery Disease, Hx Heart Attack Pulmonary Medical History: Denies: Hx Asthma, Hx Bronchitis, Hx COPD, Hx Pneumonia Neurological Medical History: Denies: Hx Cerebrovascular Accident, Hx Seizures Endocrine Medical History: Reports: Hx Diabetes Mellitus Type 2 Renal/ Medical History: Denies: Hx Peritoneal Dialysis GI Medical History: Denies: Hx Hepatitis, Hx Hiatal Hernia, Hx Ulcer Musculoskeltal Medical History: Reports Hx Arthritis - knees, Reports Hx Musculoskeletal Deformity, Reports Hx Musculoskeletal Trauma Infectious Medical History: Denies: Hx Hepatitis Past Surgical History: Reports: Hx Orthopedic Surgery, Other - Cervical fusion, bilateral knee replacements. Denies: Hx Hysterectomy, Hx Mastectomy, Hx Open Heart Surgery, Hx Pacemaker - Immunizations Hx Diphtheria, Pertussis, Tetanus Vaccination: No - unknown Hx Pneumococcal Vaccination: 05/07/09 Review of Systems - Review of Systems Notes: Constitutional: Negative for fever. HENT: Negative for sore throat. Eyes: Negative for visual changes. Cardiovascular: Negative for chest pain. Respiratory: Negative for shortness of breath. Gastrointestinal: Negative for abdominal pain, vomiting or diarrhea. Genitourinary: Negative for dysuria. Musculoskeletal: Positive for sacral pain Skin: Positive for bruising to the buttocks and sacral region Neurological: Negative for headaches, weakness or numbness. 10 point ROS negative except as marked above and in HPI. Physical Exam - Vital signs Vitals: Temp Pulse Resp BP Pulse Ox 98.0 F 96 20 132/64 H 99 02/03/18 20:46 02/03/18 20:46 02/03/18 20:46 02/03/18 20:46 02/03/18 20:46 Interpretation: Normal Notes: PHYSICAL EXAMINATION: GENERAL: Well-appearing, well-nourished and in no acute distress. HEAD: Atraumatic, normocephalic. EYES: Pupils equal round and reactive to light, extraocular movements intact, sclera anicteric, conjunctiva are normal. ENT: nares patent, oropharynx clear without exudates. Moist mucous membranes. NECK: Normal range of motion, supple without lymphadenopathy LUNGS: Breath sounds clear to auscultation bilaterally and equal. No wheezes rales or rhonchi. HEART: Regular rate and rhythm without murmurs ABDOMEN: Soft, nontender, normoactive bowel sounds. No guarding, no rebound. No masses appreciated. Back: There is bruising overlying the mid sacral region at the gluteal cleft. There is also ecchymosis to the bilateral buttocks more dominant on the left EXTREMITIES: Normal range of motion, no pitting or edema. No cyanosis. NEUROLOGICAL: 5 out of 5 strength both distally and proximally bilateral lower extremities. 2+ patellar reflexes bilaterally. No clonus. Sensation grossly intact in the bilateral lower extremities. Patient is able to ambulate without difficulty.. PSYCH: Normal mood, normal affect. SKIN: Warm, Dry, normal turgor, bruising of the above Course - Re-evaluation Re-evalutation: 02/04/18 01:57 Patient presents with 3 weeks of progressively worsening sacral pain after having a mechanical fall [address] of the pelvis does show a sacral fracture at the level of S4. She does have visible bruising to the area but no open wounds. She denies any additional injuries during the fall and denies any other areas of pain. I provided her a copy of the CT and have recommended outpatient follow-up with orthopedics. Pain control has been provided and patient has had improvement of her symptoms here in the emergency department. She does not have any focal neurologic deficits. Ambulatory without difficulty. No red flag symptoms. At this time will discharge with return precautions and follow-up recommendations. Verbal discharge instructions given a the bedside and opportunity for questions given. Medication warnings reviewed. Patient is in agreement with this plan and has verbalized understanding of return precautions and the need for primary care follow-up in the next 24-72 hours. - Vital Signs Vital signs: Temp Pulse Resp BP Pulse Ox 97.5 F 90 16 144/68 H 100 02/04/18 02:21 02/04/18 02:21 02/04/18 02:21 02/04/18 02:21 02/04/18 02:21 - Diagnostic Test Radiology reviewed: Reports reviewed Discharge - Discharge Clinical Impression: Sacral fracture Qualifiers: Encounter type: initial encounter Zone of sacrum fracture: unspecified portion of sacrum Fracture type: closed Qualified Code(s): S32.10XA - Unspecified fracture of sacrum, initial encounter for closed fracture Fall Qualifiers: Encounter type: initial encounter Qualified Code(s): W19.XXXA - Unspecified fall, initial encounter Condition: Good Disposition: HOME, SELF-CARE Additional Instructions: Your CT scan does show that you have a sacral fracture. Please follow-up with orthopedic surgeon included in the paperwork to discuss any further intervention that could be considered. For your pain: Take ibuprofen 400mg and acetaminophen 1000 mg every 6 hours together as needed for pain. If this does not control your pain you may take 15 mg of oral morphine every 4 hours as needed. Please be very careful about using the oral morphine and only use this for severe pain. Please also purchase [id number] lidocaine patches and apply to the affected area per box instructions. I did also encourage you to apply ice 20 minutes every 2 hours as needed for additional pain control to the affected area. If you take the morphine tablets, please be sure to take a stool softener and laxative in conjunction with them. Please return if you develop weakness, numbness, inability to walk, fever, or any other symptoms that are worrisome to you. Prescriptions: Morphine Sulfate [Morphine Ir 15 mg Tablet] 15 mg PO Q4HP PRN #12 tablet PRN Reason: Referrals: DARLENE BANSAL MD [Primary Care Provider] - Follow up as needed
[2018-02-04 02:44] VITALS: BP 144/68
== END 2018-02-04 02:21 | disposition home or self-care (01) ==
LOC: ER 20:38
DX: S32.10XA Unspecified fracture of sacrum, initial encounter for closed fracture (principal); W01.0XXA Fall on same level from slipping, tripping and stumbling without subsequent striking against object, initial encounter; Y92.009 Unspecified place in unspecified non-institutional (private) residence as the place of occurrence of the external cause; I10 Essential (primary) hypertension; E11.9 Type 2 diabetes mellitus without complications; Z88.0 Allergy status to penicillin; Z88.2 Allergy status to sulfonamides
CPT/HCPCS: 99283; 72131; 72192; A9270 ×3

== ENCOUNTER 2018-03-12 13:13 | Emergency (ER) | payer MEDICARE, BC ==
--- NOTE | 2018-03-12 13:55 | ER Document Report ---
ED General - General Chief Complaint: Altered Mental Status Stated Complaint: PSYCH EVAL Mode of Arrival: Medic Information source: Patient, Relative TRAVEL OUTSIDE OF THE [place] IN LAST 30 DAYS: No - HPI Notes: 67-year-old female presents via EMS today after a nurse had called for altered mental status after noticing she was sitting with her mouth open and gnats around her. Per , patient has been having changes in her mental status for the last 6-8 weeks. She supposed to be following up with a neurologist for further evaluation. - Related Data Allergies/Adverse Reactions: Penicillins Allergy (Intermediate, Verified 02/03/18 21:23) Rash Sulfa (Sulfonamide Antibiotics) Allergy (Intermediate, Verified 02/03/18 21:23) RASH IN MOUTH Past Medical History - General Information source: Patient, Relative - Social History Smoking Status: Unknown if Ever Smoked Family History: Reviewed & Not Pertinent - Past Medical History Cardiac Medical History: Reports: Hx Hypertension Denies: Hx Coronary Artery Disease, Hx Heart Attack Pulmonary Medical History: Denies: Hx Asthma, Hx Bronchitis, Hx COPD, Hx Pneumonia Neurological Medical History: Denies: Hx Cerebrovascular Accident, Hx Seizures Endocrine Medical History: Reports: Hx Diabetes Mellitus Type 2 Renal/ Medical History: Denies: Hx Peritoneal Dialysis GI Medical History: Denies: Hx Hepatitis, Hx Hiatal Hernia, Hx Ulcer Musculoskeletal Medical History: Reports Hx Arthritis - knees, Reports Hx Musculoskeletal Deformity, Reports Hx Musculoskeletal Trauma Infectious Medical History: Denies: Hx Hepatitis Past Surgical History: Reports: Hx Orthopedic Surgery, Other - Cervical fusion, bilateral knee replacements. Denies: Hx Hysterectomy, Hx Mastectomy, Hx Open Heart Surgery, Hx Pacemaker - Immunizations Hx Diphtheria, Pertussis, Tetanus Vaccination: No - unknown Hx Pneumococcal Vaccination: 05/07/09 Review of Systems - Review of Systems Constitutional: See HPI EENT: No symptoms reported Cardiovascular: No symptoms reported Respiratory: No symptoms reported Gastrointestinal: No symptoms reported Genitourinary: No symptoms reported Female Genitourinary: No symptoms reported Musculoskeletal: No symptoms reported Skin: No symptoms reported Hematologic/Lymphatic: No symptoms reported Neurological/Psychological: See HPI, Confusion Physical Exam - Vital signs Vitals: Pulse Ox 98 03/12/18 13:18 - Notes Notes: PHYSICAL EXAMINATION: GENERAL: Well-appearing, well-nourished and in no acute distress. HEAD: Atraumatic, normocephalic. EYES: Pupils equal round and reactive to light, extraocular movements intact, conjunctiva are normal. ENT: Nares patent, oropharynx clear without exudates. Moist mucous membranes. NECK: Normal range of motion, supple without lymphadenopathy LUNGS: Breath sounds clear to auscultation bilaterally and equal. No wheezes rales or rhonchi. HEART: Regular rate and rhythm without murmurs ABDOMEN: Soft, nontender, nondistended abdomen. No guarding, no rebound. No masses appreciated. Female : deferred Musculoskeletal: Normal range of motion, no pitting or edema. No cyanosis. NEUROLOGICAL: Patient awake alert only orientated to place. Disoriented to year, month, self. normal speech, normal gait. Normal sensory, motor exams PSYCH: Normal mood, normal affect. SKIN: Warm, Dry, normal turgor, no rashes or lesions noted. Course - Re-evaluation Re-evalutation: 03/12/18 13:45 67-year-old female who is afebrile vitals stable and noticed chest presents for altered mental status per for the last 3-4 weeks, has not been seen by primary care provider for this issue. No history of Alzheimer's or dementia noted. states that patient has been coming progressively weak over 6 weeks. Son at bedside who states patient actually has had altered mental status for the 8 weeks. states that he had mentioned it to the primary care provider, she finally advised him to follow-up with neurologist, name number provided per . The nurse called EMS today, was not called by family. Patient is afebrile vitals stable and in no distress. CMP negative for leukocytosis. CMP shows slight hypokalemia, potassium chloride to replace. Discussed having a potassium diet. No hepatic or renal dysfunction. Urinalysis does show a UTI with slight dehydration. pt is tolerating po fluids. Vital signs stable, patient is in no distress and afebrile . CT head negative for any acute or chronic stroke noted. Since patient is having the symptoms for the last 8 weeks, see stroke on CT of head however this is not the case. Discussed case with Dr. Luis F Whitehead hospitalist to see patient be due to altered mental status that has not been evaluated by a provider other than today , he felt that patient could be seen in the outpatient setting and having as well as supportive blood work to evaluate patient for dementia and Alzheimer's. CT scan did not show a stroke. Patient's symptoms are baseline according to family from the last 8 weeks. Patient family did not seem concerned about patient's altered mental status of any smoking that he has been experiencing for the last 2 months. Discussed with as well as son that will require outpatient follow-up with the neurologist for an MRI, other blood work such as B12, folate, thyroid etc and staging if these are all negative of her progressive neurological disease. I estimate there is LOW risk for ACUTE GLAUCOMA, TEMPORAL ARTERITIS, MENINGITIS, INCRANIAL HEMORRHAGE, or ISCHEMIC STROKE thus I consider the discharge disposition reasonable. I have reevaluated this patient multiple times and no significant life threatening changes are noted. Family agreed with plan of care and verbalized understanding of plan of care. Patient discharged home with antibiotics for UTI with understanding the necessary follow-up with primary care is neurologist. 03/12/18 18:13 - Vital Signs Vital signs: Temp Pulse Resp BP Pulse Ox 17 129/78 H 97 03/12/18 13:29 03/12/18 13:29 03/12/18 13:29 - Laboratory Result Diagrams: 03/12/18 15:06 03/12/18 16:45 Laboratory results interpreted by me: 03/12/18 03/12/18 03/12/18 15:06 15:06 15:49 RDW 16.1 H Plt Count 103 L Sodium Potassium Chloride Glucose Lactic Acid 2.3 H Magnesium Direct Bilirubin Total Protein Albumin Urine Protein 30 H Urine Ketones 20 H Urine Urobilinogen 2.0 H Ur Leukocyte Esterase TRACE H Urine Ascorbic Acid 40 H 03/12/18 16:45 RDW Plt Count Sodium 145.3 H Potassium 3.4 L Chloride 109 H Glucose 74 L Lactic Acid Magnesium 1.5 L Direct Bilirubin 0.5 H Total Protein 5.8 L Albumin 2.7 L Urine Protein Urine Ketones Urine Urobilinogen Ur Leukocyte Esterase Urine Ascorbic Acid Discharge - Discharge Clinical Impression: Hypokalemia, Neurological impairment in adult UTI (urinary tract infection) Qualifiers: Urinary tract infection type: acute cystitis Hematuria presence: without hematuria Qualified Code(s): N30.00 - Acute cystitis without hematuria Condition: Stable Disposition: HOME, SELF-CARE Additional Instructions: Hypokalemia You have an abnormally decreased level of serum potassium. Hypokalemia may cause weakness, fatigue, or heart rhythm abnormalities. Sometimes there are no symptoms at all. Usually, low serum potassium is due to taking diuretics ( water pills). It can also be due to excessive vomiting or diarrhea. If no obvious cause is evident, further evaluation will be necessary. Treatment is usually oral potassium supplements. Take these exactly as prescribed. You may also want to select foods which are naturally high in potassium -- fruits (such as bananas, cantaloupe, grapes, oranges, prunes, tomatoes), fresh vegetables (potatoes, spinach, beans, peas), orange or tomato juice, tomato pasta sauce, milk, fish (halibut, tuna, salmon, louise) A follow-up blood test is usually performed to assure that the potassium is returning to normal. Call the physician if you suffer severe weakness, muscle twitching or cramping, palpitations (pounding or irregular heartbeat), or any other new or alarming symptoms. FOLLOW-UP CARE: If you have been referred to a physician for follow-up care, call the physician s office for an appointment as you were instructed or within the next two days. If you experience worsening or a significant change in your symptoms, notify the physician immediately or return to the Emergency Department at any time for re-evaluation. Follow-up with neurologist within the next week. Follow-up with primary care provider within the next 24-48 hours. Take Cipro as directed to treat UTI. Symptoms become worse, return to the emergency room Return immediately for any new or worsening symptoms. Follow up with primary care provider, call tomorrow to make followup appointment. Prescriptions: Ciprofloxacin HCl [Cipro 500 mg Tablet] 500 mg PO BID #20 tablet Referrals: DARLENE BANSAL MD [Primary Care Provider] - Follow up in 3-5 days NAKUL DICKSON MD [NO LOCAL MD] - Follow up in 3-5 days GARCIA BROUSSARD MD [COMMUNITY BASED STAFF] - Follow up in 3-5 days
--- NOTE | 2018-03-12 14:13 | RADIOLOGY REPORT (SQ) ---
EXAM DESCRIPTION: CT HEAD WITHOUT COMPLETED DATE/TIME: 03/12/2018 2:00 pm REASON FOR STUDY: AMS COMPARISON: CT brain 12/13/2017, 11/28/2010 TECHNIQUE: Axial images acquired through the brain without intravenous contrast. Images reviewed wi th bone, brain and subdural windows. Additional sagittal and coronal reconstructions were generated. Images stored on PACS. All CT scanners at this facility use dose modulation, iterative reconstruction, and/or weight based d osing when appropriate to reduce radiation dose to as low as reasonably achievable (ALARA). [facility]: Dose Right [facility]: CareDose [facility]: Dose Right [facility]: Teradose 4D [facility]: Bioxodes RADIATION DOSE: CT Rad equipment meets quality standard of care and radiation dose reduction techniq ues were employed. CTDIvol: 53.2 mGy. DLP: 1017 mGy-cm. mGy. LIMITATIONS: None. FINDINGS: VENTRICLES: Normal size and contour. CEREBRUM: No masses. No hemorrhage. No midline shift. No evidence for acute infarction. Normal gra y/white matter differentiation. No areas of low density in the white matter. CEREBELLUM: No masses. No hemorrhage. No alteration of density. No evidence for acute infarction. EXTRAAXIAL SPACES: No fluid collections. No masses. ORBITS AND GLOBE: No intra- or extraconal masses. Normal contour of globe without masses. CALVARIUM: No fracture. PARANASAL SINUSES: Left frontal benign osteoma axial image 16. Bilateral maxillary sinus mucus or se hamzah retention cysts SOFT TISSUES: No mass or hematoma. OTHER: No other significant finding. IMPRESSION: NORMAL BRAIN CT WITHOUT CONTRAST. EVIDENCE OF ACUTE STROKE: NO. COMMENT: Quality ID # [id number]: Final reports with documentation of one or more dose reduction techniques (e.g., Automated exposure control, adjustment of the mA and/or kV according to patient size, use of iterative reconstruction technique) TECHNICAL DOCUMENTATION: JOB ID: [id number] [employer]- All Rights Reserved Reading location - IP/workstation name: [email or web address]
--- NOTE | 2018-03-12 14:59 | RADIOLOGY REPORT (SQ) ---
EXAM DESCRIPTION: CHEST SINGLE VIEW COMPLETED DATE/TIME: 03/12/2018 2:28 pm REASON FOR STUDY: AMS COMPARISON: May 2011 EXAM PARAMETERS: NUMBER OF VIEWS: One view. TECHNIQUE: Single frontal radiographic view of the chest acquired. RADIATION DOSE: NA LIMITATIONS: None. FINDINGS: LUNGS AND PLEURA: No opacities, masses or pneumothorax. No pleural effusion. MEDIASTINUM AND HILAR STRUCTURES: No masses. Contour normal. HEART AND VASCULAR STRUCTURES: Heart normal in size. Normal vasculature. BONES: No acute findings. HARDWARE: None in the chest. OTHER: No other significant finding. IMPRESSION: NO ACUTE RADIOGRAPHIC FINDING IN THE CHEST. TECHNICAL DOCUMENTATION: JOB ID: [id number] [employer]- All Rights Reserved Reading location - IP/workstation name: [email or web address]
[2018-03-12 15:37] LABS: ABSOLUTE LYMPHOCYTES (AUTO) 1.6 10^3/uL (0.5-4.7); ABSOLUTE MONOCYTES (AUTO) 0.5 10^3/uL (0.1-1.4); ABSOLUTE NEUT (AUTO) 4.6 10^3/uL (1.7-8.2); BASOPHILS % (AUTO) 0.4 % (0-2); EOSINOPHILS % (AUTO) 0.7 % (0-6); HEMATOCRIT 40.6 % (36.0-47.0); HEMOGLOBIN 13.4 g/dL (12.0-15.5); MEAN CORPUSCULAR HEMOGLOBIN 30.5 pg (27.0-33.4); MEAN CORPUSCULAR HGB CONC 33.1 g/dL (32.0-36.0); MEAN CORPUSCULAR VOLUME 92 fl (80-97); MONOCYTES % (AUTO) 7.6 % (3-13); PLATELET COUNT 103 10^3/uL (150-450); RED CELL DISTRIBUTION WIDTH 16.1 % (11.5-14.0); SEGMENTED NEUTROPHILS % (AUTO) 67.3 % (42-78); TOTAL CELLS COUNTED % (AUTO) 100 %; WHITE BLOOD COUNT 6.9 10^3/uL (4.0-10.5)
[2018-03-12 15:53] LABS: NT PRO BNP 575 pg/mL (5-900); TROPONIN I < 0.012 ng/mL
[2018-03-12 16:27] LABS: APPEARANCE,URINE CLOUDY; BILIRUBIN,URINE NEGATIVE (NEGATIVE); COLOR,URINE AMBER; GLUCOSE, URINE NEGATIVE (NEGATIVE); KETONES,URINE 20 mg/dL (NEGATIVE); LEUKOCYTE ESTERASE,URINE TRACE (NEGATIVE); NITRITE,URINE NEGATIVE (NEGATIVE); PROTEIN,URINE 30 mg/dL (NEGATIVE); URINE SPECIFIC GRAVITY 1.023
[2018-03-12] MEDS ORDERED: NORMAL SALINE 1000 ML 1,000 ML IV PRN (16:46)
[2018-03-12 17:38] LABS: ALANINE AMINOTRANSFERASE 27 U/L (9-52); ALBUMIN 2.7 g/dL (3.5-5.0); ALKALINE PHOSPHATASE 82 U/L (38-126); ANION GAP 12 (5-19); ASPARTATE AMINO TRANSFERASE 32 U/L (14-36); BILIRUBIN,DIRECT 0.5 mg/dL (0.0-0.4); BILIRUBIN,TOTAL 1.3 mg/dL (0.2-1.3); BLOOD UREA NITROGEN 15 mg/dL (7-20); C-REACTIVE PROTEIN 8.2 mg/L (<10.0); CALCIUM 8.7 mg/dL (8.4-10.2); CARBON DIOXIDE 24 mmol/L (22-30); CHLORIDE 109 mmol/L (98-107); CREATINE KINASE 37 U/L (30-135); GLUCOSE 74 mg/dL (75-110); PHOSPHORUS 3.2 mg/dL (2.5-4.5); POTASSIUM 3.4 mmol/L (3.6-5.0); SODIUM 145.3 mmol/L (137-145); TOTAL PROTEIN 5.8 g/dL (6.3-8.2)
[2018-03-12] MEDS ORDERED: CIPROFLOXACIN HCL 500 MG TABLET PO ONE (17:41)
[2018-03-12] MEDS ORDERED: POTASSIUM CHLORIDE 10 MEQ CAPSULE.ER PO ONE (17:46)
[2018-03-12 18:10] VITALS: BP 139/98
--- NOTE | 2018-03-12 22:24 | EKG REPORT ---
SEVERITY:- BORDERLINE ECG - SINUS RHYTHM BORDERLINE LEFT AXIS DEVIATION BORDERLINE T ABNORMALITIES, DIFFUSE LEADS : Confirmed by: Kelsey Lomas MD 12-Mar-2018 22:24:06
== END 2018-03-12 18:30 | disposition home or self-care (01) ==
LOC: ER 13:13
DX: R41.82 Altered mental status, unspecified (principal); N30.00 Acute cystitis without hematuria; I10 Essential (primary) hypertension; R29.818 Other symptoms and signs involving the nervous system; E87.6 Hypokalemia; E11.9 Type 2 diabetes mellitus without complications; Z88.0 Allergy status to penicillin; Z88.2 Allergy status to sulfonamides; Z98.1 Arthrodesis status
CPT/HCPCS: 93005; 99285; 36415; 87086; 82553; 82550; 83605; 83735; 84100; 85025; 86140; 80053; 81001; 84484; 83880; 71045; 70450; 93010; A9270 ×2

== ENCOUNTER 2018-03-16 15:49 | Inpatient (IN) | payer MEDICARE, BC ==
--- NOTE | 2018-03-16 17:21 | RADIOLOGY REPORT (SQ) ---
EXAM DESCRIPTION: CHEST SINGLE VIEW COMPLETED DATE/TIME: 03/16/2018 5:01 pm REASON FOR STUDY: Possible infection COMPARISON: 03/12/2018 EXAM PARAMETERS: NUMBER OF VIEWS: One view. TECHNIQUE: Single frontal radiographic view of the chest acquired. RADIATION DOSE: NA LIMITATIONS: None. FINDINGS: LUNGS AND PLEURA: No acute opacities, masses or pneumothorax. No pleural effusion. MEDIASTINUM AND HILAR STRUCTURES: Stable. HEART AND VASCULAR STRUCTURES: Heart normal in size. Normal vasculature. BONES: No acute findings. HARDWARE: None in the chest. OTHER: No other significant finding. IMPRESSION: NO ACUTE RADIOGRAPHIC FINDING IN THE CHEST. TECHNICAL DOCUMENTATION: JOB ID: [id number] 2010 [employer]- All Rights Reserved Reading location - IP/workstation name: [email or web address]
[2018-03-16 18:27] LABS: HEMATOCRIT 38.6 % (36.0-47.0); HEMOGLOBIN 12.9 g/dL (12.0-15.5); RED BLOOD COUNT 4.18 10^6/uL (3.72-5.28); WHITE BLOOD COUNT 7.4 10^3/uL (4.0-10.5)
[2018-03-16 18:28] LABS: ABSOLUTE EOSINOPHILS # (AUTO) 0.2 10^3/uL (0.0-0.6); ABSOLUTE LYMPHOCYTES (AUTO) 1.8 10^3/uL (0.5-4.7); ABSOLUTE MONOCYTES (AUTO) 0.5 10^3/uL (0.1-1.4); ABSOLUTE NEUT (AUTO) 4.8 10^3/uL (1.7-8.2); BASOPHILS % (AUTO) 0.4 % (0-2); EOSINOPHILS % (AUTO) 2.2 % (0-6); LYMPHOCYTES % (AUTO) 24.6 % (13-45); MEAN CORPUSCULAR HEMOGLOBIN 30.9 pg (27.0-33.4); MEAN CORPUSCULAR HGB CONC 33.4 g/dL (32.0-36.0); MEAN CORPUSCULAR VOLUME 93 fl (80-97); MONOCYTES % (AUTO) 7.3 % (3-13); PLATELET COUNT 156 10^3/uL (150-450); RED CELL DISTRIBUTION WIDTH 15.8 % (11.5-14.0); SEGMENTED NEUTROPHILS % (AUTO) 65.5 % (42-78); TOTAL CELLS COUNTED % (AUTO) 100 %
[2018-03-16 18:51] LABS: ALANINE AMINOTRANSFERASE 27 U/L (9-52); ALBUMIN 2.8 g/dL (3.5-5.0); ALKALINE PHOSPHATASE 86 U/L (38-126); ANION GAP 14 (5-19); ASPARTATE AMINO TRANSFERASE 27 U/L (14-36); BILIRUBIN,DIRECT 0.5 mg/dL (0.0-0.4); BILIRUBIN,TOTAL 1.7 mg/dL (0.2-1.3); BLOOD UREA NITROGEN 15 mg/dL (7-20); CARBON DIOXIDE 25 mmol/L (22-30); CHLORIDE 105 mmol/L (98-107); GLUCOSE 76 mg/dL (75-110); SODIUM 143.5 mmol/L (137-145); TOTAL PROTEIN 5.9 g/dL (6.3-8.2)
[2018-03-16 19:20] LABS: THYROID STIMULATING HORMONE 0.16 uIU/mL (0.47-4.68)
[2018-03-16 19:24] LABS: FREE T4 (FREE THYROXINE) 1.83 ng/dL (0.78-2.19)
[2018-03-16] MEDS ORDERED: POTASSIUM CHLORIDE 10 MEQ CAPSULE.ER PO ONE (20:00)
--- NOTE | 2018-03-16 20:21 | PDOC H&P ---
History of Present Illness Admission Date/PCP: 03/16/18 15:49 DARLENE BANSAL MD History of Present Illness: VITO SUÁREZ is a 67 year old female,She was admitted directly into the hospital for evaluation of altered mental status. Patient's stated that patient was confused, hallucinating intermittently for the last few weeks, he took her to the emergency room recently she was evaluated no demonstrable cause was found, she also was in the emergency room in [place] ,she underwent the same evaluation that was done in the emergency room at [facility] which was CT scan of the head blood work again did not demonstrate any etiology of the confusion . She has underlining type 2 diabetes mellitus, well controlled, morbid obesity, arthropathy with right knee replacement, limited mobility. She is admitted to to be evaluated for encephalopathy, she has not been diagnosed with dementia 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 Denies: Sickle Cell Disease Social History Smoking Status: Never Smoker Frequency of Alcohol Use: None Drugs: None Hx Prescription Drug Abuse: No Family History Family History: Reviewed & Not Pertinent Parental Family History Reviewed: Yes Children Family History Reviewed: Yes Sibling(s) Family History Reviewed.: Yes Medication/Allergy Home Medications: RX: Cyclobenzaprine HCl [Flexeril 10 mg Tablet] 10 mg PO HSP PRN 03/16/18 RX: Duloxetine HCl [Cymbalta 20 mg Capsule.dr] 20 mg PO Q12 03/16/18 RX: Ferrous Sulfate [Feosol 325 mg Tablet] 325 mg PO DAILY 03/16/18 RX: Folic Acid [Folvite 1 mg Tablet] 1 mg PO DAILY 03/16/18 RX: Hydrocodone/Acetaminophen [Hydrocodone-Acetamin 7.5-325] 1 tab PO Q6HP PRN 03/16/18 RX: Phentermine HCl 30 mg PO DAILY 03/16/18 RX: Potassium Chloride [Klor-Con 10 Meq Capsule ER] 10 meq PO DAILY 03/16/18 RX: Pregabalin [Lyrica] 75 mg PO Q12 03/16/18 RX: Tolterodine Tartrate [Detrol] 2 mg PO BID 03/16/18 RX: Calcium Carbonate/Vitamin D3 [Os-Sai 250 mg with Vitamin D 125 Units] 1 tab PO DAILY tablet 03/21/18 RX: Cyanocobalamin (Vitamin B-12) [Vitamin B-12 1000 mcg Tablet] 1,000 mcg PO DAILY tablet 03/21/18 RX: Donepezil HCl [Aricept 5 mg Tablet] 5 mg PO QHS #90 tablet 03/21/18 RX: Nystatin [Mycostatin Cream 15 gm] 1 applic TP BIDP PRN tube 03/21/18 RX: Paroxetine HCl [Paxil 20 mg Tablet] 20 mg PO DAILY #90 tablet 03/21/18 RX: Topiramate [Topamax 25 mg Tablet] 50 mg PO Q12 tablet 03/21/18 Allergies/Adverse Reactions: Penicillins Allergy (Intermediate, Verified 02/03/18 21:23) Rash Sulfa (Sulfonamide Antibiotics) Allergy (Intermediate, Verified 02/03/18 21:23) RASH IN MOUTH Review of Systems Constitutional: ABSENT: chills, fever(s), headache(s), weight gain, weight loss Eyes: ABSENT: visual disturbances Ears: ABSENT: hearing changes Cardiovascular: ABSENT: chest pain, dyspnea on exertion, edema, orthropnea, palpitations Respiratory: ABSENT: cough, hemoptysis Gastrointestinal: ABSENT: abdominal pain, constipation, diarrhea, hematemesis, hematochezia, nausea, vomiting Genitourinary: ABSENT: dysuria, hematuria Musculoskeletal: ABSENT: joint swelling Integumentary: ABSENT: rash, wounds Neurological: PRESENT: confusion. ABSENT: abnormal gait, abnormal speech, dizziness, focal weakness, syncope Psychiatric: PRESENT: hallucinations. ABSENT: anxiety, depression, homidical ideation, suicidal ideation Endocrine: ABSENT: cold intolerance, heat intolerance, menstrual abnormalities, polydipsia, polyuria Hematologic/Lymphatic: ABSENT: easy bleeding, easy bruising, lymphadenopathy Physical Exam Vital Signs: Temp Pulse Resp BP Pulse Ox 98.7 F 83 18 109/60 99 03/16/18 16:20 03/16/18 16:56 03/16/18 16:20 03/16/18 16:20 03/16/18 16:20 Intake & Output 03/15/18 03/16/18 03/17/18 06:59 06:59 06:59 Intake Total 100 Balance 100 General appearance: PRESENT: obese Head exam: PRESENT: atraumatic, normocephalic Eye exam: PRESENT: conjunctiva pink, EOMI, PERRLA Ear exam: PRESENT: normal external ear exam Mouth exam: PRESENT: moist, tongue midline Neck exam: PRESENT: full ROM Respiratory exam: PRESENT: clear to auscultation ayad Cardiovascular exam: PRESENT: RRR, +S1, +S2 Vascular exam: PRESENT: normal capillary refill GI/Abdominal exam: PRESENT: normal bowel sounds, soft Rectal exam: PRESENT: deferred Neurological exam: PRESENT: alert, CN II-XII grossly intact Skin exam: PRESENT: dry, intact, warm Results Laboratory Results: 03/16/18 17:45 03/16/18 17:45 03/16/18 03/16/18 03/16/18 17:45 17:45 17:45 WBC 7.4 RBC 4.18 Hgb 12.9 Hct 38.6 MCV 93 MCH 30.9 MCHC 33.4 RDW 15.8 H Plt Count 156 Seg Neutrophils % 65.5 Lymphocytes % 24.6 Monocytes % 7.3 Eosinophils % 2.2 Basophils % 0.4 Absolute Neutrophils 4.8 Absolute Lymphocytes 1.8 Absolute Monocytes 0.5 Absolute Eosinophils 0.2 Absolute Basophils 0.0 Sodium 143.5 Potassium 3.0 L* Chloride 105 Carbon Dioxide 25 Anion Gap 14 BUN 15 Creatinine 0.84 Est GFR ( Amer) > 60 Est GFR (Non-Af Amer) > 60 Glucose 76 Calcium 9.0 Total Bilirubin 1.7 H AST 27 ALT 27 Alkaline Phosphatase 86 Total Protein 5.9 L Albumin 2.8 L TSH 0.16 L Free T4 1.83 Impressions: Chest X-Ray 03/16/18 16:28 IMPRESSION: NO ACUTE RADIOGRAPHIC FINDING IN THE CHEST. Assessment & Plan - Diagnosis (1) Encephalopathy Is this a current diagnosis for this admission?: Yes Plan: The etiology of the encephalopathy is not clear, she may require a EEG, lumbar puncture, MRI (2) Hypokalemia Is this a current diagnosis for this admission?: Yes
[2018-03-16] MEDS ORDERED: FERROUS SULFATE 325 MG TABLET PO SCH (21:00)
[2018-03-16] MEDS ORDERED: DULOXETINE HCL 20 MG CAPSULE.DR PO SCH (22:00)
--- NOTE | 2018-03-16 22:22 | RADIOLOGY REPORT (SQ) ---
EXAM DESCRIPTION: MRI HEAD WITHOUT COMPLETED DATE/TIME: 03/16/2018 9:45 pm REASON FOR STUDY: ENCEPHALOPATHY COMPARISON: None. TECHNIQUE: Multiplanar imaging includes non-contrasted T1, T2, FLAIR, and Diffusion with ADC map seq uences. Images stored on PACS. LIMITATIONS: None. FINDINGS: ANATOMY: No anomalies. Normal vascular flow voids. Pituitary fossa normal. CSF SPACES: Normal in size and contour. No hemorrhage. CEREBRUM: A few high-signal intensity lesions scattered throughout the white matter on FLAIR imaging with distribution suggesting chronic micro-vascular ischemic change. Sulci and gyri normal in size a nd contour. No evidence of hemorrhage, mass or extraaxial fluid collection. POSTERIOR FOSSA: No signal alteration. No hemorrhage. No edema, masses or mass effect. Internal nate tory canals, cerebello-pontine angles, mastoids normal. DIFFUSION: Negative for acute or sub-acute infarction. ORBITS: No masses. Globes normal. PARANASAL SINUSES: No fluid levels. Mucosa normal. OTHER: No other significant finding. IMPRESSION: Negative for acute or sub-acute infarction. EVIDENCE OF ACUTE STROKE: NO. TECHNICAL DOCUMENTATION: JOB ID: [id number] [id number] 2010 [employer]- All Rights Reserved Reading location - IP/workstation name: [email or web address] [id number]
[2018-03-16] MEDS ORDERED: NYSTATIN CREAM 15 GM TP PRN (22:26)
[2018-03-16] MEDS ORDERED: CYCLOBENZAPRINE HCL 10 MG TABLET PO ONE (22:30)
[2018-03-16] MEDS: FOLIC ACID 1 MG TABLET PO SCH (22:55)
[2018-03-16] MEDS: METFORMIN HCL 500 MG TABLET PO SCH (22:55)
[2018-03-16] MEDS ORDERED: FERROUS SULFATE 325 MG TABLET PO ONE (23:00)
[2018-03-16] MEDS: POTASSIUM CHLORIDE 10 MEQ CAPSULE.ER PO SCH (23:02)
[2018-03-16] MEDS: PREGABALIN 75 MG CAPSULE PO SCH (23:03)
[2018-03-16] MEDS: TOPIRAMATE 25 MG TABLET PO SCH (23:04)
[2018-03-16] MEDS: HYDROCODONE/ACETAMINOPHEN 7.5-325 MG TABLET PO PRN (23:05)
--- NOTE | 2018-03-17 00:01 | EKG REPORT ---
SEVERITY:- ABNORMAL ECG - SINUS RHYTHM MULTIPLE ATRIAL PREMATURE COMPLEXES PROBABLE LVH WITH SECONDARY REPOL ABNRM : Confirmed by: Kelsey Lomas MD 17-Mar-2018 00:01:20
[2018-03-17 09:50] LABS: APPEARANCE,URINE SLIGHTLY-CLOUDY; BILIRUBIN,URINE NEGATIVE (NEGATIVE); COLOR,URINE AMBER; GLUCOSE, URINE NEGATIVE (NEGATIVE); KETONES,URINE 20 mg/dL (NEGATIVE); LEUKOCYTE ESTERASE,URINE NEGATIVE (NEGATIVE); NITRITE,URINE POSITIVE (NEGATIVE); PROTEIN,URINE NEGATIVE (NEGATIVE); URINE SPECIFIC GRAVITY 1.018; UROBILINOGEN,URINE NEGATIVE mg/dL (<2.0)
[2018-03-17] MEDS ORDERED: PHENTERMINE HCL 30 MG PO SCH (10:00)
[2018-03-17] MEDS ORDERED: MELOXICAM 7.5 MG TABLET PO SCH (10:00)
[2018-03-17] MEDS: TOLTERODINE TARTRATE 1 MG TABLET PO SCH ×2 (10:59→18:14)
[2018-03-17] MEDS: PREGABALIN 75 MG CAPSULE PO SCH ×2 (10:59→21:26)
[2018-03-17] MEDS: TOPIRAMATE 25 MG TABLET PO SCH ×2 (11:00→21:26)
[2018-03-17] MEDS: METOPROLOL TARTRATE 25 MG TABLET PO SCH (11:00)
[2018-03-17] MEDS: METFORMIN HCL 500 MG TABLET PO SCH (11:00)
[2018-03-17] MEDS: CYANOCOBALAMIN (VITAMIN B-12) 1,000 MCG TABLET PO SCH (11:00)
[2018-03-17] MEDS: CALCIUM CARBONATE 250 MG/VITAMIN D3 125 UNIT TABLET PO SCH (11:00)
[2018-03-17] MEDS: FOLIC ACID 1 MG TABLET PO SCH (11:00)
[2018-03-17] MEDS: POTASSIUM CHLORIDE 10 MEQ CAPSULE.ER PO SCH (11:01)
[2018-03-17] MEDS: CHOLECALCIFEROL (D3) 1,000 UNIT TABLET PO SCH (11:01)
[2018-03-17] MEDS: MELOXICAM 15 MG TABLET PO SCH (11:01)
[2018-03-17] MEDS: PAROXETINE HCL 20 MG TABLET PO SCH (11:01)
--- NOTE | 2018-03-17 12:18 | EKG REPORT ---
SEVERITY:- ABNORMAL ECG - SINUS RHYTHM PROBABLE LEFT VENTRICULAR HYPERTROPHY BORDERLINE T ABNORMALITIES, INFERIOR LEADS : Confirmed by: Kelsey Lomas MD 17-Mar-2018 12:17:43
--- NOTE | 2018-03-17 12:18 | PDOC PROGRESS REPORT ---
Subjective Progress Note for:: 03/17/18 Subjective:: Patient was admitting in the hospital for some altered mental status Was in the ER last week and also went to the [facility] ER and had extensive workup was done was all negative patient was brought to the Dr. Collado's office but the because of a confusions Patients was admitted by Dr. Collado directly in the hospital MRI of the head was done was negative for any acute finding Patient's potassium was low When I saw the patient's awakes answer all questions appropriately and family on a bedside Patient's urine was positive nitrate wait for the urine culture History denied any headache Denied any neck pain Denied any chest pain denied any shortness of the breath Reason For Visit: ACUTE ENCEPHALOPATY DEMENTIA Physical Exam Vital Signs: Temp Pulse Resp BP Pulse Ox 97.8 F 91 16 123/68 98 03/17/18 08:00 03/17/18 08:00 03/17/18 08:00 03/17/18 08:00 03/17/18 08:00 Intake & Output 03/16/18 03/17/18 03/18/18 06:59 06:59 06:59 Intake Total 100 Balance 100 Weight 112 kg 112 kg General appearance: PRESENT: no acute distress, well-developed, well-nourished Head exam: PRESENT: atraumatic, normocephalic Eye exam: PRESENT: conjunctiva pink, EOMI, PERRLA. ABSENT: scleral icterus Ear exam: PRESENT: normal external ear exam Mouth exam: PRESENT: moist, tongue midline Neck exam: PRESENT: full ROM. ABSENT: carotid bruit, JVD, lymphadenopathy, thyromegaly Respiratory exam: PRESENT: clear to auscultation ayad Cardiovascular exam: PRESENT: RRR. ABSENT: diastolic murmur, rubs, systolic murmur Pulses: PRESENT: normal dorsalis pedis pul, +2 pedal pulses bilateral Vascular exam: PRESENT: normal capillary refill GI/Abdominal exam: PRESENT: normal bowel sounds, soft. ABSENT: distended, guarding, mass, organolmegaly, rebound, tenderness Rectal exam: PRESENT: deferred Extremities exam: ABSENT: pedal edema Musculoskeletal exam: PRESENT: ambulatory Neurological exam: PRESENT: alert, awake, oriented to person, oriented to place , oriented to time, CN II-XII grossly intact. ABSENT: motor sensory deficit Psychiatric exam: PRESENT: appropriate affect, normal mood. ABSENT: homicidal ideation, suicidal ideation Skin exam: PRESENT: dry, intact, warm. ABSENT: cyanosis, rash Results Laboratory Results: 03/16/18 17:45 03/16/18 17:45 03/16/18 03/16/18 03/16/18 17:45 17:45 17:45 WBC 7.4 RBC 4.18 Hgb 12.9 Hct 38.6 MCV 93 MCH 30.9 MCHC 33.4 RDW 15.8 H Plt Count 156 Seg Neutrophils % 65.5 Lymphocytes % 24.6 Monocytes % 7.3 Eosinophils % 2.2 Basophils % 0.4 Absolute Neutrophils 4.8 Absolute Lymphocytes 1.8 Absolute Monocytes 0.5 Absolute Eosinophils 0.2 Absolute Basophils 0.0 Sodium 143.5 Potassium 3.0 L* Chloride 105 Carbon Dioxide 25 Anion Gap 14 BUN 15 Creatinine 0.84 Est GFR ( Amer) > 60 Est GFR (Non-Af Amer) > 60 Glucose 76 Calcium 9.0 Total Bilirubin 1.7 H AST 27 ALT 27 Alkaline Phosphatase 86 Total Protein 5.9 L Albumin 2.8 L TSH 0.16 L Free T4 1.83 Urine Color Urine Appearance Urine pH Ur Specific [place] Urine Protein Urine Glucose (UA) Urine Ketones Urine Blood Urine Nitrite Ur Leukocyte Esterase Urine WBC (Auto) Urine RBC (Auto) 03/17/18 09:15 WBC RBC Hgb Hct MCV MCH MCHC RDW Plt Count Seg Neutrophils % Lymphocytes % Monocytes % Eosinophils % Basophils % Absolute Neutrophils Absolute Lymphocytes Absolute Monocytes Absolute Eosinophils Absolute Basophils Sodium Potassium Chloride Carbon Dioxide Anion Gap BUN Creatinine Est GFR ( Amer) Est GFR (Non-Af Amer) Glucose Calcium Total Bilirubin AST ALT Alkaline Phosphatase Total Protein Albumin TSH Free T4 Urine Color EMILIANO Urine Appearance SLIGHTLY-CLOUDY Urine pH 5.0 Ur Specific [place] 1.018 Urine Protein NEGATIVE Urine Glucose (UA) NEGATIVE Urine Ketones 20 H Urine Blood NEGATIVE Urine Nitrite POSITIVE H Ur Leukocyte Esterase NEGATIVE Urine WBC (Auto) 7 Urine RBC (Auto) 2 Impressions: Head MRI 03/16/18 00:00 IMPRESSION: Negative for acute or sub-acute infarction. EVIDENCE OF ACUTE STROKE: NO. Chest X-Ray 03/16/18 16:28 IMPRESSION: NO ACUTE RADIOGRAPHIC FINDING IN THE CHEST. Assessment & Plan - Diagnosis (1) Encephalopathy Is this a current diagnosis for this admission?: Yes Plan: At this point this may be underlying urinary tract infections we will treat with the IV antibiotic (2) Hypokalemia Is this a current diagnosis for this admission?: Yes Plan: Replace the potassium (3) UTI (urinary tract infection) Qualifiers: Urinary tract infection type: acute cystitis Hematuria presence: without hematuria Qualified Code(s): N30.00 - Acute cystitis without hematuria Is this a current diagnosis for this admission?: Yes Plan: Wait for the culture - Time Time Spent with patient: 15-24 minutes Medications reviewed and adjusted accordingly: Yes Anticipated discharge: Home Within: Other - Inpatient Certification Medical Necessity: Need Close Monitoring Due to Risk of Patient Decompensation, Need for IV Antibiotics Post Hospital Care: D/C Clerk Guide Documentation - Plan Summary Plan Summary: This with the patient regarding the patient's current conditions
[2018-03-17] MEDS: CIPROFLOXACIN 400 MG/D5W RTU 400 MG/200 ML RTUPB IV SCH ×2 (13:26→21:25)
[2018-03-17 16:43] LABS: ANION GAP 11 (5-19); BLOOD UREA NITROGEN 15 mg/dL (7-20); CALCIUM 8.9 mg/dL (8.4-10.2); CARBON DIOXIDE 25 mmol/L (22-30); CHLORIDE 108 mmol/L (98-107); GLUCOSE 85 mg/dL (75-110); SODIUM 143.7 mmol/L (137-145)
[2018-03-17 16:58] LABS: POTASSIUM 4.1 mmol/L (3.6-5.0)
[2018-03-17] MEDS: FERROUS SULFATE 325 MG TABLET PO SCH (21:26)
[2018-03-17] MEDS: CYCLOBENZAPRINE HCL 10 MG TABLET PO SCH (21:26)
[2018-03-18 05:27] LABS: ABSOLUTE EOSINOPHILS # (AUTO) 0.2 10^3/uL (0.0-0.6); ABSOLUTE LYMPHOCYTES (AUTO) 1.1 10^3/uL (0.5-4.7); ABSOLUTE MONOCYTES (AUTO) 0.4 10^3/uL (0.1-1.4); ABSOLUTE NEUT (AUTO) 3.9 10^3/uL (1.7-8.2); BASOPHILS % (AUTO) 0.7 % (0-2); EOSINOPHILS % (AUTO) 3.4 % (0-6); HEMOGLOBIN 12.5 g/dL (12.0-15.5); LYMPHOCYTES % (AUTO) 19.9 % (13-45); MEAN CORPUSCULAR HEMOGLOBIN 31.5 pg (27.0-33.4); MEAN CORPUSCULAR HGB CONC 33.9 g/dL (32.0-36.0); MEAN CORPUSCULAR VOLUME 93 fl (80-97); MONOCYTES % (AUTO) 7.4 % (3-13); PLATELET COUNT 179 10^3/uL (150-450); RED BLOOD COUNT 3.97 10^6/uL (3.72-5.28); RED CELL DISTRIBUTION WIDTH 16.2 % (11.5-14.0); SEGMENTED NEUTROPHILS % (AUTO) 68.6 % (42-78); TOTAL CELLS COUNTED % (AUTO) 100 %; WHITE BLOOD COUNT 5.7 10^3/uL (4.0-10.5)
[2018-03-18 09:05] LABS: ANION GAP 11 (5-19); BLOOD UREA NITROGEN 14 mg/dL (7-20); CALCIUM 9.2 mg/dL (8.4-10.2); CARBON DIOXIDE 29 mmol/L (22-30); CHLORIDE 105 mmol/L (98-107); GLUCOSE 123 mg/dL (75-110); POTASSIUM 3.8 mmol/L (3.6-5.0); SODIUM 144.8 mmol/L (137-145)
[2018-03-18] MEDS: PREGABALIN 75 MG CAPSULE PO SCH ×2 (09:27→22:04)
[2018-03-18] MEDS: TOLTERODINE TARTRATE 1 MG TABLET PO SCH ×2 (09:27→19:35)
[2018-03-18] MEDS: TOPIRAMATE 25 MG TABLET PO SCH ×2 (09:27→22:05)
[2018-03-18] MEDS: MELOXICAM 15 MG TABLET PO SCH (09:28)
[2018-03-18] MEDS: POTASSIUM CHLORIDE 10 MEQ CAPSULE.ER PO SCH (09:28)
[2018-03-18] MEDS: CYANOCOBALAMIN (VITAMIN B-12) 1,000 MCG TABLET PO SCH (09:28)
[2018-03-18] MEDS: PAROXETINE HCL 20 MG TABLET PO SCH (09:28)
[2018-03-18] MEDS: CIPROFLOXACIN 400 MG/D5W RTU 400 MG/200 ML RTUPB IV SCH ×2 (09:28→21:59)
[2018-03-18] MEDS: METFORMIN HCL 500 MG TABLET PO SCH (09:28)
[2018-03-18] MEDS: CHOLECALCIFEROL (D3) 1,000 UNIT TABLET PO SCH (09:28)
[2018-03-18] MEDS: CALCIUM CARBONATE 250 MG/VITAMIN D3 125 UNIT TABLET PO SCH (09:28)
[2018-03-18] MEDS: FOLIC ACID 1 MG TABLET PO SCH (09:28)
[2018-03-18] MEDS: METOPROLOL TARTRATE 25 MG TABLET PO SCH (09:28)
--- NOTE | 2018-03-18 10:22 | PDOC PROGRESS REPORT ---
Subjective Progress Note for:: 03/18/18 Subjective:: Patient was admitting in the hospital for some altered mental status Was in the ER last week and also went to the [facility] ER and had extensive workup was done was all negative patient was brought to the Dr. Collado's office but the because of a confusions Patients was admitted by Dr. Collado directly in the hospital MRI of the head was done was negative for any acute finding Patient's potassium was low When I saw the patient's awakes answer all questions appropriately and family on a bedside Patient's urine was positive nitrate wait for the urine culture History denied any headache Denied any neck pain Denied any chest pain denied any shortness of the breath Reason For Visit: ACUTE ENCEPHALOPATY DEMENTIA Physical Exam Vital Signs: Temp Pulse Resp BP Pulse Ox 97.5 F 87 18 133/71 H 100 03/18/18 07:45 03/18/18 07:45 03/18/18 07:45 03/18/18 07:45 03/18/18 07:45 Intake & Output 03/17/18 03/18/18 03/19/18 06:59 06:59 06:59 Intake Total 100 1245 Output Total 550 Balance 100 695 Weight 112 kg 111.3 kg General appearance: PRESENT: no acute distress, well-developed, well-nourished Head exam: PRESENT: atraumatic, normocephalic Eye exam: PRESENT: conjunctiva pink, EOMI, PERRLA. ABSENT: scleral icterus Ear exam: PRESENT: normal external ear exam Mouth exam: PRESENT: moist, tongue midline Neck exam: PRESENT: full ROM. ABSENT: carotid bruit, JVD, lymphadenopathy, thyromegaly Respiratory exam: PRESENT: clear to auscultation ayad Cardiovascular exam: PRESENT: RRR. ABSENT: diastolic murmur, rubs, systolic murmur Pulses: PRESENT: normal dorsalis pedis pul, +2 pedal pulses bilateral Vascular exam: PRESENT: normal capillary refill GI/Abdominal exam: PRESENT: normal bowel sounds, soft. ABSENT: distended, guarding, mass, organolmegaly, rebound, tenderness Rectal exam: PRESENT: deferred Extremities exam: ABSENT: pedal edema Musculoskeletal exam: PRESENT: ambulatory Neurological exam: PRESENT: alert, awake, oriented to person, oriented to place , oriented to time, oriented to situation, CN II-XII grossly intact. ABSENT: motor sensory deficit Psychiatric exam: PRESENT: appropriate affect, normal mood. ABSENT: homicidal ideation, suicidal ideation Skin exam: PRESENT: dry, intact, warm. ABSENT: cyanosis, rash Results Laboratory Results: 03/18/18 05:12 03/18/18 08:24 03/17/18 03/17/18 03/17/18 12:40 16:16 16:16 WBC RBC Hgb Hct MCV MCH MCHC RDW Plt Count Seg Neutrophils % Lymphocytes % Monocytes % Eosinophils % Basophils % Absolute Neutrophils Absolute Lymphocytes Absolute Monocytes Absolute Eosinophils Absolute Basophils Sodium Cancelled 143.7 Potassium Cancelled 4.1 D Chloride Cancelled 108 H Carbon Dioxide Cancelled 25 Anion Gap Cancelled 11 BUN Cancelled 15 Creatinine Cancelled 0.72 Est GFR ( Amer) Cancelled > 60 Est GFR (Non-Af Amer) Cancelled > 60 Glucose Cancelled 85 Calcium Cancelled 8.9 Ammonia 26.2 03/18/18 03/18/18 03/18/18 05:12 05:12 08:24 WBC 5.7 RBC 3.97 Hgb 12.5 Hct 37.0 MCV 93 MCH 31.5 MCHC 33.9 RDW 16.2 H Plt Count 179 Seg Neutrophils % 68.6 Lymphocytes % 19.9 Monocytes % 7.4 Eosinophils % 3.4 Basophils % 0.7 Absolute Neutrophils 3.9 Absolute Lymphocytes 1.1 Absolute Monocytes 0.4 Absolute Eosinophils 0.2 Absolute Basophils 0.0 Sodium Cancelled 144.8 Potassium Cancelled 3.8 Chloride Cancelled 105 Carbon Dioxide Cancelled 29 Anion Gap Cancelled 11 BUN Cancelled 14 Creatinine Cancelled 0.71 Est GFR ( Amer) Cancelled > 60 Est GFR (Non-Af Amer) Cancelled > 60 Glucose Cancelled 123 H Calcium Cancelled 9.2 Ammonia Impressions: Head MRI 03/16/18 00:00 IMPRESSION: Negative for acute or sub-acute infarction. EVIDENCE OF ACUTE STROKE: NO. Chest X-Ray 03/16/18 16:28 IMPRESSION: NO ACUTE RADIOGRAPHIC FINDING IN THE CHEST. Assessment & Plan - Diagnosis (1) Encephalopathy Is this a current diagnosis for this admission?: Yes Plan: At this point this may be underlying urinary tract infections we will treat with the IV antibiotic (2) Hypokalemia Is this a current diagnosis for this admission?: Yes Plan: stable (3) UTI (urinary tract infection) Qualifiers: Urinary tract infection type: acute cystitis Hematuria presence: without hematuria Qualified Code(s): N30.00 - Acute cystitis without hematuria Is this a current diagnosis for this admission?: Yes Plan: awit for culture - Time Time Spent with patient: 15-24 minutes Medications reviewed and adjusted accordingly: Yes - Inpatient Certification Medical Necessity: Need Close Monitoring Due to Risk of Patient Decompensation Post Hospital Care: D/C Welfare Interviewer Documentation - Plan Summary Plan Summary: stable d/w
[2018-03-18] MEDS: CYCLOBENZAPRINE HCL 10 MG TABLET PO SCH (22:04)
[2018-03-18] MEDS: FERROUS SULFATE 325 MG TABLET PO SCH (22:04)
[2018-03-19 05:54] LABS: ANION GAP 10 (5-19); BLOOD UREA NITROGEN 13 mg/dL (7-20); CALCIUM 8.4 mg/dL (8.4-10.2); CARBON DIOXIDE 24 mmol/L (22-30); CHLORIDE 108 mmol/L (98-107); GLUCOSE 84 mg/dL (75-110); POTASSIUM 3.7 mmol/L (3.6-5.0); SODIUM 142.2 mmol/L (137-145)
[2018-03-19] MEDS: POTASSIUM CHLORIDE 10 MEQ CAPSULE.ER PO SCH (10:54)
[2018-03-19] MEDS: METOPROLOL TARTRATE 25 MG TABLET PO SCH (10:54)
[2018-03-19] MEDS: CYANOCOBALAMIN (VITAMIN B-12) 1,000 MCG TABLET PO SCH (10:54)
[2018-03-19] MEDS: PREGABALIN 75 MG CAPSULE PO SCH ×2 (10:54→21:41)
[2018-03-19] MEDS: FOLIC ACID 1 MG TABLET PO SCH (10:54)
[2018-03-19] MEDS: METFORMIN HCL 500 MG TABLET PO SCH (10:54)
[2018-03-19] MEDS: TOPIRAMATE 25 MG TABLET PO SCH ×2 (10:55→21:42)
[2018-03-19] MEDS: PAROXETINE HCL 20 MG TABLET PO SCH (10:55)
[2018-03-19] MEDS: CALCIUM CARBONATE 250 MG/VITAMIN D3 125 UNIT TABLET PO SCH (10:55)
[2018-03-19] MEDS: TOLTERODINE TARTRATE 1 MG TABLET PO SCH ×2 (10:55→18:03)
[2018-03-19] MEDS: CHOLECALCIFEROL (D3) 1,000 UNIT TABLET PO SCH (10:55)
[2018-03-19] MEDS: MELOXICAM 15 MG TABLET PO SCH (10:55)
[2018-03-19] MEDS: CIPROFLOXACIN 400 MG/D5W RTU 400 MG/200 ML RTUPB IV SCH (10:55)
--- NOTE | 2018-03-19 12:14 | Physician Advisory Note ---
Physician Advisor ProgressNote .: [facility] I have reviewed the medical record for this patient. Physician Advisor Statement: Asked to review case r.e. status. [employer]/EHR reviewed earlier & determined Obs appropriate. Please consider documenting, if you agree: 1. What was still different from her baseline over the weekend? Why did she still need to be in hospital through the weekend? - If this is not made clear in attending documentation, it could lead to a denial of Inpatient status. See bolded issues below gleaned from chart so far.... - Was there concern that her "intermittent" mental status changes were not yet fully resolved over the weekend, or was mental status felt to be back to baseline as of Monday? 2. Most likely cause of encephalopathy: "Acute cystitis"? or " Atherosclerotic cerebrovascular disease"? or combination of the 2, or .... 3. Does she likely have dementia (state type: vascular?, or Alzheimer"s?), or not? Status Points: 1. Encephalopathy is Obs initially until proven otherwise (b/c remains persistent, or is accompanied by another dx that requires Inpt adm). Evidence of encephalopthy dx nicely documented in H&P, as well as 8/10 PM nursing assessment. 2. UTI is Obs initially until proven otherwise. 3. Acute hypokalemia of 3.0 is Obs initially until proven otherwise. 4. Progress notes with most/all of subjective/reasoning sections exactly the same from 1 day to the next make it harder to see a case for why patient still needs to be in hospital, especially when they seem to indicate patient's principal dx findings essentially appearing back to baseline. 5. On day after admission, pt's mental status better, K back up to 4.1, MRI shows white matter microvascular ischemic changes, found to have UTI - which could be cause of the encephalopathy; IV cipro was started, with plan to await culture/sensitivity results, continuing daily KCl 10meq with followup K levels. 6. Nursing assessment note 8/11 AM, after 1 MN, reports urine now "cloudy" with "strong odor" (when it was "pale/clear/normal odor" on 8/10 PM). Urine still cloudy/strong odor that PM, but she had only been started on IV abx that afternoon. Nursing note 811PM reports pulse "thready"; skin turgor "sluggish", with 2+ pitting BLE edema. (Therefore, it sounds like, despite starting abx, urine clinically worsening, which could cause worsening of mental status, and which could indicate abx tx failure. This in association with the pulse/skin turgor findings could be concerning for systemic effects developing from the UTI - potential first indicators of sepsis developing.) Because of #5-6, it was reasonable that patient was kept for 2nd MN in hospital. Therefore, Inpatient status appropriate despite suboptimal documentation. Review: Medicare pt w/DM-2, obesity, HTN, limited mobility/OA/prior Rt TKA w/ subsequent anemia, brought in w/evidence of acute encephalopathy + hallucinations intermittently x weeks. Evaluation revealed hypokalemia, other issues as noted above. THanks, CK
[2018-03-19] MEDS ORDERED: CEFTRIAXONE 1 GM/D5W RTU 1 GM/50 ML RTUPB IV SCH (13:00)
[2018-03-19] MEDS: CEFTRIAXONE SODIUM 1,000 MG in NORMAL SALINE 50 ML IV SCH (15:17)
--- NOTE | 2018-03-19 17:44 | PDOC PROGRESS REPORT ---
Subjective Progress Note for:: 03/19/18 Subjective:: Patient was admitted over the weekend for evaluation of encephalopathy, urine culture grew E. coli resistant to Cipro. She was empirically treated with Cipro when she was admitted on Monday, the bacteria is sensitive to ciprofloxacin IV, she cannot take sulfa based drug because of sulfa allergy. EEG was done today. Patient still confused, intermittently, she probably have dementia. She has episode of confusion ,sometimes she is lucid. Reason For Visit: ACUTE ENCEPHALOPATY DEMENTIA Physical Exam Vital Signs: Temp Pulse Resp BP Pulse Ox 97.6 F 92 18 111/72 99 03/19/18 10:51 03/19/18 10:51 03/19/18 10:51 03/19/18 10:51 03/19/18 10:51 Intake & Output 03/18/18 03/19/18 03/20/18 06:59 06:59 06:59 Intake Total 1245 1670 1100 Output Total 550 400 Balance 695 1270 1100 Weight 111.3 kg 111.3 kg General appearance: PRESENT: no acute distress Eye exam: PRESENT: PERRLA Respiratory exam: PRESENT: clear to auscultation ayad Cardiovascular exam: PRESENT: +S1, +S2 GI/Abdominal exam: PRESENT: soft Neurological exam: PRESENT: alert Results Laboratory Results: 03/18/18 05:12 03/19/18 04:15 03/19/18 04:15 Sodium 142.2 Potassium 3.7 Chloride 108 H Carbon Dioxide 24 Anion Gap 10 BUN 13 Creatinine 0.67 Est GFR ( Amer) > 60 Est GFR (Non-Af Amer) > 60 Glucose 84 Calcium 8.4 03/17/18 09:15 Clean Catch Midstream Urine Culture - Final Escherichia Coli Impressions: Head MRI 03/16/18 00:00 IMPRESSION: Negative for acute or sub-acute infarction. EVIDENCE OF ACUTE STROKE: NO. Chest X-Ray 03/16/18 16:28 IMPRESSION: NO ACUTE RADIOGRAPHIC FINDING IN THE CHEST. Assessment & Plan - Diagnosis (1) Encephalopathy Is this a current diagnosis for this admission?: Yes Plan: This is most likely from E. coli UTI, she probably of underlying dementia, she will be started on Aricept, the organism that was culture is resistant to ciprofloxacin, this is changed to intravenous Rocephin, there is no oral antibiotic alternative, she can only take IV Rocephin. She cannot take sulfa based drug or penicillin, there is a potential for cross reactivity with rocephin, a beta-lactam, she will be monitored very closely for any reaction (2) Hypokalemia Is this a current diagnosis for this admission?: Yes (3) E. coli UTI (urinary tract infection) Is this a current diagnosis for this admission?: Yes Plan: She has E. coli UTI resistant to fluoroquinolones, presently on IV ceftriaxone
--- NOTE | 2018-03-19 20:31 | EKG REPORT ---
SEVERITY:- ABNORMAL ECG - SINUS RHYTHM MULTIPLE ATRIAL PREMATURE COMPLEXES LVH BY [place]TAGE BORDERLINE T ABNORMALITIES, INFERIOR LEADS : Confirmed by: Joe Bee MD 19-Mar-2018 20:30:23
[2018-03-19] MEDS: CYCLOBENZAPRINE HCL 10 MG TABLET PO SCH (21:41)
[2018-03-19] MEDS: DONEPEZIL HCL 5 MG TABLET PO SCH (21:42)
[2018-03-19] MEDS: FERROUS SULFATE 325 MG TABLET PO SCH (21:42)
[2018-03-20 06:12] LABS: ANION GAP 10 (5-19); BLOOD UREA NITROGEN 12 mg/dL (7-20); CALCIUM 8.5 mg/dL (8.4-10.2); CARBON DIOXIDE 26 mmol/L (22-30); CHLORIDE 110 mmol/L (98-107); GLUCOSE 89 mg/dL (75-110); POTASSIUM 3.7 mmol/L (3.6-5.0); SODIUM 145.9 mmol/L (137-145)
--- NOTE | 2018-03-20 08:24 | EEG PRO FEE REPORT ---
EEG INTERPRETATION PATIENT NAME[id number] ROOM#: 307 ORDER#: [id number] DATE OF STUDY: 03/19/2018 : 1950 REFERRING MD: DARLENE BANSAL M.D. MEDICATIONS: Vitamin D3, B12, Folate, Mobic, Glucophage, Lopressor, Paxil, Lyrica, Feosol, Flexeril, Topamax, Mycostatin cream, Potassium Chloride, Detrol, [place], Calcium carbonate, Ciprofloxacin History This is a 67 year old right handed woman with a history of hypertension, type II diabetes, neck surgery, skin cancer, musculoskeletal disorder, right femur surgery, bilateral total knee replacement, and gastric bypass. She fell a month ago and within 3-4 weeks she developed memory loss and confusion. This EEG was requested for confusion. EEG Interpretation This EEG was recorded in the awake state only. The awake EEG is characterized by a moderately organized background with a moderately developed but poorly reactive posterior dominant rhythm of 6 Hz. The remainder of the background consist of mainly theta activity. There is significant muscle artifact, primarily frontally, throughout the recording, impairing interpretation. There was attenuation of the background on the right temporal region compared to the left, approximately at a 2:1 ratio. Photic stimulation resulted in minimal driving response. There were no epileptiform abnormalities. The EKG showed a PVC. EEG Classification 1. Generalized background slowing 2. Attenuation, right temporal region EEG Impression This EEG is abnormal in the awake state. The generalized background slowing is consistent with diffuse cerebral dysfunction. The attenuation in the right temporal region may be associated with a structural lesion. Correlation with neuroimaging may be of interest. There is a PVC noted on the EKG which may require further investigation. INTERPRETING PHYSICIAN: SABINA DURAN M.D. /: MTEFANTONIETTA TT: [id number] ID: [id number] /: [id number] TD: [id number] JOB: [id number] cc:Ciro MACHUCA M.D. > MTDD
[2018-03-20] MEDS: METFORMIN HCL 500 MG TABLET PO SCH (09:31)
[2018-03-20] MEDS: FOLIC ACID 1 MG TABLET PO SCH (09:31)
[2018-03-20] MEDS: PREGABALIN 75 MG CAPSULE PO SCH ×2 (09:31→22:33)
[2018-03-20] MEDS: CYANOCOBALAMIN (VITAMIN B-12) 1,000 MCG TABLET PO SCH (09:31)
[2018-03-20] MEDS: MELOXICAM 15 MG TABLET PO SCH (09:31)
[2018-03-20] MEDS: METOPROLOL TARTRATE 25 MG TABLET PO SCH (09:32)
[2018-03-20] MEDS: CALCIUM CARBONATE 250 MG/VITAMIN D3 125 UNIT TABLET PO SCH (09:32)
[2018-03-20] MEDS: TOLTERODINE TARTRATE 1 MG TABLET PO SCH ×2 (09:32→17:13)
[2018-03-20] MEDS: CHOLECALCIFEROL (D3) 1,000 UNIT TABLET PO SCH (09:32)
[2018-03-20] MEDS: POTASSIUM CHLORIDE 10 MEQ CAPSULE.ER PO SCH (09:32)
[2018-03-20] MEDS: PAROXETINE HCL 20 MG TABLET PO SCH (09:32)
[2018-03-20] MEDS: TOPIRAMATE 25 MG TABLET PO SCH ×2 (09:33→22:33)
[2018-03-20] MEDS: CEFTRIAXONE SODIUM 1,000 MG in NORMAL SALINE 50 ML IV SCH (13:32)
--- NOTE | 2018-03-20 20:37 | PDOC PROGRESS REPORT ---
Subjective Progress Note for:: 03/20/18 Subjective:: EEG demonstrated generalized slowing of the brain,she probably have dementia there is no very reasonable explanation for this extent of encephalopathy very unlikely to be metabolic Reason For Visit: ACUTE ENCEPHALOPATY DEMENTIA Physical Exam Vital Signs: Temp Pulse Resp BP Pulse Ox 97.7 F 83 19 109/77 98 03/20/18 19:54 03/20/18 19:54 03/20/18 19:54 03/20/18 19:54 03/20/18 19:54 Intake & Output 03/19/18 03/20/18 03/21/18 06:59 06:59 06:59 Intake Total 1670 1350 272 Output Total 400 900 200 Balance 1270 450 72 Weight 111.3 kg 112 kg General appearance: PRESENT: no acute distress Eye exam: PRESENT: PERRLA Respiratory exam: PRESENT: clear to auscultation ayad Cardiovascular exam: PRESENT: +S1, +S2 Results Laboratory Results: 03/18/18 05:12 03/20/18 04:14 03/20/18 04:14 Sodium 145.9 H Potassium 3.7 Chloride 110 H Carbon Dioxide 26 Anion Gap 10 BUN 12 Creatinine 0.75 Est GFR ( Amer) > 60 Est GFR (Non-Af Amer) > 60 Glucose 89 Calcium 8.5 Impressions: Head MRI 03/16/18 00:00 IMPRESSION: Negative for acute or sub-acute infarction. EVIDENCE OF ACUTE STROKE: NO. Chest X-Ray 03/16/18 16:28 IMPRESSION: NO ACUTE RADIOGRAPHIC FINDING IN THE CHEST. Assessment & Plan - Diagnosis (1) Encephalopathy Is this a current diagnosis for this admission?: Yes (2) Hypokalemia Is this a current diagnosis for this admission?: Yes (3) E. coli UTI (urinary tract infection) Is this a current diagnosis for this admission?: Yes
[2018-03-20] MEDS: FERROUS SULFATE 325 MG TABLET PO SCH (22:32)
[2018-03-20] MEDS: DONEPEZIL HCL 5 MG TABLET PO SCH (22:32)
[2018-03-20] MEDS: CYCLOBENZAPRINE HCL 10 MG TABLET PO SCH (22:33)
[2018-03-20] MEDS: HYDROCODONE/ACETAMINOPHEN 7.5-325 MG TABLET PO PRN (22:34)
[2018-03-21] MEDS: MELOXICAM 15 MG TABLET PO SCH (09:04)
[2018-03-21] MEDS: TOPIRAMATE 25 MG TABLET PO SCH (09:04)
[2018-03-21] MEDS: TOLTERODINE TARTRATE 1 MG TABLET PO SCH (09:05)
[2018-03-21] MEDS: PAROXETINE HCL 20 MG TABLET PO SCH (09:05)
[2018-03-21] MEDS: CALCIUM CARBONATE 250 MG/VITAMIN D3 125 UNIT TABLET PO SCH (09:05)
[2018-03-21] MEDS: CHOLECALCIFEROL (D3) 1,000 UNIT TABLET PO SCH (09:05)
[2018-03-21] MEDS: CYANOCOBALAMIN (VITAMIN B-12) 1,000 MCG TABLET PO SCH (09:05)
[2018-03-21] MEDS: METOPROLOL TARTRATE 25 MG TABLET PO SCH (09:05)
[2018-03-21] MEDS: POTASSIUM CHLORIDE 10 MEQ CAPSULE.ER PO SCH (09:05)
[2018-03-21] MEDS: METFORMIN HCL 500 MG TABLET PO SCH (09:05)
[2018-03-21] MEDS: PREGABALIN 75 MG CAPSULE PO SCH (09:05)
[2018-03-21] MEDS: FOLIC ACID 1 MG TABLET PO SCH (09:05)
[2018-03-21] MEDS: CEFTRIAXONE SODIUM 1,000 MG in NORMAL SALINE 50 ML IV SCH (13:23)
--- NOTE | 2018-03-21 14:55 | PDOC DISCHARGE SUMMARY ---
General - Admit/Disc Date/PCP Admission Date/Primary Care Provider: 03/16/18 15:49 DARLENE BANSAL MD Discharge Date: 03/21/18 - Discharge Diagnosis (1) Encephalopathy Is this a current diagnosis for this admission?: Yes (2) Hypokalemia Is this a current diagnosis for this admission?: Yes (3) E. coli UTI (urinary tract infection) Is this a current diagnosis for this admission?: Yes - Additional Information Prescriptions: Donepezil HCl [Aricept 5 mg Tablet] 5 mg PO QHS #90 tablet Paroxetine HCl [Paxil 20 mg Tablet] 20 mg PO DAILY #90 tablet Home Medications: Cyclobenzaprine HCl [Flexeril 10 mg Tablet] 10 mg PO HSP PRN 03/16/18 Duloxetine HCl [Cymbalta 20 mg Capsule.dr] 20 mg PO Q12 03/16/18 Ferrous Sulfate [Feosol 325 mg Tablet] 325 mg PO DAILY 03/16/18 Folic Acid [Folvite 1 mg Tablet] 1 mg PO DAILY 03/16/18 Hydrocodone/Acetaminophen [Hydrocodone-Acetamin 7.5-325] 1 tab PO Q6HP PRN 03/16 Phentermine HCl 30 mg PO DAILY 03/16/18 Potassium Chloride [Klor-Con 10 Meq Capsule ER] 10 meq PO DAILY 03/16/18 Pregabalin [Lyrica] 75 mg PO Q12 03/16/18 Tolterodine Tartrate [Detrol] 2 mg PO BID 03/16/18 Calcium Carbonate/Vitamin D3 [Os-Sai 250 mg with Vitamin D 125 Units] 1 tab PO DAILY tablet 03/21/18 Cyanocobalamin (Vitamin B-12) [Vitamin B-12 1000 mcg Tablet] 1,000 mcg PO DAILY tablet 03/21/18 Donepezil HCl [Aricept 5 mg Tablet] 5 mg PO QHS #90 tablet 03/21/18 Nystatin [Mycostatin Cream 15 gm] 1 applic TP BIDP PRN tube 03/21/18 Paroxetine HCl [Paxil 20 mg Tablet] 20 mg PO DAILY #90 tablet 03/21/18 Topiramate [Topamax 25 mg Tablet] 50 mg PO Q12 tablet 03/21/18 History of Present Illness History of Present Illness: VITO SUÁREZ is a 67 year old female,She was admitted directly into the hospital for evaluation of altered mental status. Patient's stated that patient was confused, hallucinating intermittently for the last few weeks, he took her to the emergency room recently she was evaluated no demonstrable cause was found, she also was in the emergency room in [place] ,she underwent the same evaluation that was done in the emergency room at [facility] which was CT scan of the head blood work again did not demonstrate any etiology of the confusion . She has underlining type 2 diabetes mellitus, well controlled, morbid obesity, arthropathy with right knee replacement, limited mobility. She is admitted to to be evaluated for encephalopathy, she has not been diagnosed with dementia Hospital Course Hospital Course: Patient was admitted for the management of encephalopathic symptoms, MRI brain was done, there was no acute pathology on the MRI, EEG was done, it demonstrated generalized slowing of the brain. The urine culture grew E. coli that is resistant to fluoroquinolones sensitive to beta-lactam. When she was admitted she was empirically treated with IV ciprofloxacin when the culture and sensitivity result came back this was transitioned to intravenous ceftriaxone. Dementia was entertained as a diagnosis in this patient, before she was admitted into the hospital patient's family took to the emergency room at [facility] in [facility] for evaluation of confusion, no acute etiology was demonstrated in the emergency room, she was also taken to the emergency department at [facility] for evaluation again she was evaluated with CT scans blood work, no acute pathology was demonstrated. She has been experiencing state of confusion progressively getting worse with. Of lucidity. The EEG demonstrated generalized slowing of the brain without a reasonable metabolic explanation or other explanation the only explanation that is reasonable in this context has to be dementia she was started on Aricept on this admission Physical Exam Vital Signs: Temp Pulse Resp BP Pulse Ox 97.8 F 150 H 16 97/61 L 92 03/21/18 11:36 03/21/18 11:36 03/21/18 11:36 03/21/18 11:36 03/21/18 11:36 Intake & Output 03/20/18 03/21/18 03/22/18 06:59 06:59 06:59 Intake Total 1350 672 118 Output Total 900 200 Balance 450 472 118 Weight 112 kg 110 kg General appearance: PRESENT: no acute distress, well-developed, well-nourished Head exam: PRESENT: atraumatic, normocephalic Eye exam: PRESENT: conjunctiva pink, EOMI, PERRLA Ear exam: PRESENT: normal external ear exam Mouth exam: PRESENT: moist, tongue midline Neck exam: PRESENT: full ROM Respiratory exam: PRESENT: clear to auscultation ayad Cardiovascular exam: PRESENT: RRR, +S1, +S2 Vascular exam: PRESENT: normal capillary refill GI/Abdominal exam: PRESENT: normal bowel sounds, soft Rectal exam: PRESENT: deferred Neurological exam: PRESENT: alert, awake, oriented to person, oriented to place , oriented to time, oriented to situation, CN II-XII grossly intact Psychiatric exam: PRESENT: appropriate affect, normal mood Skin exam: PRESENT: dry, intact, warm Results Laboratory Results: 03/18/18 05:12 03/20/18 04:14 Impressions: Head MRI 03/16/18 00:00 IMPRESSION: Negative for acute or sub-acute infarction. EVIDENCE OF ACUTE STROKE: NO. Chest X-Ray 03/16/18 16:28 IMPRESSION: NO ACUTE RADIOGRAPHIC FINDING IN THE CHEST. Qualifiers - * PATIENT BEING DISCHARGED WITH ANY OF THE FOLLOWING DIAGNOSIS: No
[2018-03-21 16:34] VITALS: BP 111/69
== END 2018-03-21 17:45 | disposition home health service (06) | DRG 71 ==
LOC: 3N 15:49 → UNDOADMIN 15:49
PROVIDERS: ADMIT Internal Medicine; ATTEND Internal Medicine
DX: G93.40 Encephalopathy, unspecified (principal); N39.0 Urinary tract infection, site not specified; R41.82 Altered mental status, unspecified; E87.6 Hypokalemia; I10 Essential (primary) hypertension; E11.8 Type 2 diabetes mellitus with unspecified complications; B96.20 Unspecified Escherichia coli [E. coli] as the cause of diseases classified elsewhere; E66.01 Morbid (severe) obesity due to excess calories; Z96.651 Presence of right artificial knee joint; Z68.33 Body mass index [BMI] 33.0-33.9, adult
CPT/HCPCS: 36415; 70551; 71045; 80048; 80076; 81001; 82140; 84439; 84443; 85025; 87086; 87088; 87186; 93005; 93010; 95819; J0696; J0744; J3490

== ENCOUNTER 2018-05-12 11:42 | Inpatient (IN) | payer MEDICARE, BC ==
[2018-05-12] MEDS ORDERED: CEFTRIAXONE 1 GM/D5W RTU 1 GM/50 ML RTUPB IV ONE (11:52)
[2018-05-12] MEDS ORDERED: NORMAL SALINE 1000 ML 1,000 ML IV ONE ×2 (11:52→15:26)
[2018-05-12 12:53] LABS: ABSOLUTE LYMPHOCYTES (AUTO) 2.1 10^3/uL (0.5-4.7); ABSOLUTE NEUT (AUTO) 6.1 10^3/uL (1.7-8.2); BASOPHILS % (AUTO) 0.5 % (0-2); EOSINOPHILS % (AUTO) 0.5 % (0-6); HEMATOCRIT 39.8 % (36.0-47.0); HEMOGLOBIN 13.4 g/dL (12.0-15.5); LYMPHOCYTES % (AUTO) 22.9 % (13-45); MEAN CORPUSCULAR HEMOGLOBIN 30.9 pg (27.0-33.4); MEAN CORPUSCULAR HGB CONC 33.6 g/dL (32.0-36.0); MEAN CORPUSCULAR VOLUME 92 fl (80-97); MONOCYTES % (AUTO) 10.3 % (3-13); PLATELET COUNT 121 10^3/uL (150-450); RED BLOOD COUNT 4.33 10^6/uL (3.72-5.28); RED CELL DISTRIBUTION WIDTH 17.3 % (11.5-14.0); SEGMENTED NEUTROPHILS % (AUTO) 65.8 % (42-78); TOTAL CELLS COUNTED % (AUTO) 100 %; WHITE BLOOD COUNT 9.3 10^3/uL (4.0-10.5)
[2018-05-12 12:58] LABS: INTERNATIONAL RATION (INR) 1.34; PROTHROMBIN TIME 17.2 SEC (11.4-15.4)
[2018-05-12 13:00] LABS: VENOUS BLOOD BASE EXCESS -0.3 mmol/L; VENOUS BLOOD HCO3 26.2 mmol/L (20-32); VENOUS BLOOD PCO2 48.7 mmHg (35-63); VENOUS BLOOD PH 7.35 (7.30-7.42)
--- NOTE | 2018-05-12 13:02 | RADIOLOGY REPORT (SQ) ---
EXAM DESCRIPTION: CHEST SINGLE VIEW COMPLETED DATE/TIME: 05/12/2018 12:40 pm REASON FOR STUDY: ams COMPARISON: None. EXAM PARAMETERS: NUMBER OF VIEWS: One view. TECHNIQUE: Single frontal radiographic view of the chest acquired. RADIATION DOSE: NA LIMITATIONS: None. FINDINGS: LUNGS AND PLEURA: No acute infiltrates or effusions. MEDIASTINUM AND HILAR STRUCTURES: No masses. Contour normal. HEART AND VASCULAR STRUCTURES: Normal heart size. Normal pulmonary vasculature. Uncoiling thoracic aorta. HARDWARE: Surgical clips right upper quadrant and left upper quadrant. OTHER: No other significant finding. IMPRESSION: NO ACUTE DISEASE. TECHNICAL DOCUMENTATION: JOB ID: [id number] [id number] [employer]- All Rights Reserved Reading location - IP/workstation name: [email or web address]
[2018-05-12 13:19] LABS: APPEARANCE,URINE CLOUDY; BILIRUBIN,URINE NEGATIVE (NEGATIVE); COLOR,URINE AMBER; GLUCOSE, URINE NEGATIVE (NEGATIVE); KETONES,URINE TRACE mg/dL (NEGATIVE); LEUKOCYTE ESTERASE,URINE LARGE (NEGATIVE); NITRITE,URINE POSITIVE (NEGATIVE); PROTEIN,URINE NEGATIVE (NEGATIVE); URINE SPECIFIC GRAVITY 1.016; UROBILINOGEN,URINE NEGATIVE mg/dL (<2.0)
[2018-05-12 13:27] LABS: ALANINE AMINOTRANSFERASE 32 U/L (9-52); ALBUMIN 2.5 g/dL (3.5-5.0); ALKALINE PHOSPHATASE 59 U/L (38-126); ANION GAP 6 (5-19); ASPARTATE AMINO TRANSFERASE 27 U/L (14-36); BILIRUBIN,DIRECT 0.7 mg/dL (0.0-0.4); BILIRUBIN,TOTAL 1.9 mg/dL (0.2-1.3); BLOOD UREA NITROGEN 17 mg/dL (7-20); CALCIUM 9.1 mg/dL (8.4-10.2); CARBON DIOXIDE 26 mmol/L (22-30); CHLORIDE 106 mmol/L (98-107); GLUCOSE 84 mg/dL (75-110); POTASSIUM 3.9 mmol/L (3.6-5.0); SODIUM 138.2 mmol/L (137-145); TOTAL PROTEIN 5.7 g/dL (6.3-8.2)
--- NOTE | 2018-05-12 13:54 | RADIOLOGY REPORT (SQ) ---
EXAM DESCRIPTION: CT HEAD WITHOUT COMPLETED DATE/TIME: 05/12/2018 1:38 pm REASON FOR STUDY: ams COMPARISON: CT brain 03/12/2018, 12/13/2017, 11/28/2010 TECHNIQUE: Axial images acquired through the brain without intravenous contrast. Images reviewed wi th bone, brain and subdural windows. Additional sagittal and coronal reconstructions were generated. Images stored on PACS. All CT scanners at this facility use dose modulation, iterative reconstruction, and/or weight based d osing when appropriate to reduce radiation dose to as low as reasonably achievable (ALARA). [facility]: Dose Right [facility]: CareDose [facility]: Dose Right [facility]: Teradose 4D [facility]: BIG Launcher RADIATION DOSE: CT Rad equipment meets quality standard of care and radiation dose reduction techniq ues were employed. CTDIvol: 53.2 mGy. DLP: 991 mGy-cm. mGy. LIMITATIONS: None. FINDINGS: VENTRICLES: Normal size and contour. CEREBRUM: No masses. No hemorrhage. No midline shift. No evidence for acute infarction. Normal gra y/white matter differentiation. No areas of low density in the white matter. CEREBELLUM: No masses. No hemorrhage. No alteration of density. No evidence for acute infarction. EXTRAAXIAL SPACES: No fluid collections. No masses. ORBITS AND GLOBE: No intra- or extraconal masses. Normal contour of globe without masses. CALVARIUM: No fracture. PARANASAL SINUSES: No fluid or mucosal thickening. SOFT TISSUES: No mass or hematoma. OTHER: No other significant finding. IMPRESSION: NORMAL BRAIN CT WITHOUT CONTRAST. EVIDENCE OF ACUTE STROKE: NO. COMMENT: Quality ID # [id number]: Final reports with documentation of one or more dose reduction techniques (e.g., Automated exposure control, adjustment of the mA and/or kV according to patient size, use of iterative reconstruction technique) TECHNICAL DOCUMENTATION: JOB ID: [id number] [employer]- All Rights Reserved Reading location - IP/workstation name: [email or web address]
--- NOTE | 2018-05-12 15:20 | ER Document Report ---
ED General - General Chief Complaint: Altered Mental Status Stated Complaint: ALTERED MENTAL STATUS Time Seen by Provider: 05/12/18 11:52 TRAVEL OUTSIDE OF THE [place] IN LAST 30 DAYS: No - HPI Patient complains to provider of: Altered mental status Notes: Patient coming in from local rehab facility for altered mental status. Patient has minimal responsiveness earlier this morning when family came to check on her. Patient upon my evaluation is able to answer yes or no questions according family members at bedside this time is more verbal. Patient had been recently treated for urinary tract infection. Otherwise patient is unable to give any substantial information during the HPI process senior care notes were reviewed - Related Data Allergies/Adverse Reactions: Penicillins Allergy (Intermediate, Verified 02/03/18 21:23) Rash Sulfa (Sulfonamide Antibiotics) Allergy (Intermediate, Verified 02/03/18 21:23) RASH IN MOUTH Past Medical History - Social History Smoking Status: Unknown if Ever Smoked Family History: Reviewed & Not Pertinent Patient has suicidal ideation: No Patient has homicidal ideation: No - Past Medical History Cardiac Medical History: Reports: Hx Hypertension Neurological Medical History: Denies: Hx Cerebrovascular Accident Endocrine Medical History: Reports: Hx Diabetes Mellitus Type 2 Renal/ Medical History: Denies: Hx Peritoneal Dialysis GI Medical History: Denies: Hx Ulcer Musculoskeletal Medical History: Reports Hx Arthritis - knees, Reports Hx Musculoskeletal Deformity, Reports Hx Musculoskeletal Trauma Past Surgical History: Denies: Hx Hysterectomy, Hx Mastectomy, Hx Open Heart Surgery, Hx Pacemaker - Immunizations Hx Diphtheria, Pertussis, Tetanus Vaccination: No - unknown Hx Pneumococcal Vaccination: 05/07/09 Review of Systems - Review of Systems -: Yes ROS unobtainable due to patient's medical condition - Altered mental status Physical Exam - Vital signs Vitals: Resp Pulse Ox 18 94 05/12/18 12:00 05/12/18 12:00 Interpretation: Normal - General General appearance: Alert, Lethargic - HEENT Head: Normocephalic, Atraumatic Eyes: Normal Pupils: PERRL - Respiratory Respiratory status: No respiratory distress Chest status: Nontender Breath sounds: Normal Chest palpation: Normal - Cardiovascular Rhythm: Regular Heart sounds: Normal auscultation Murmur: No - Abdominal Inspection: Normal Distension: No distension Bowel sounds: Normal Tenderness: Nontender Organomegaly: No organomegaly - Back Back: Normal, Nontender - Extremities General upper extremity: Normal inspection, Nontender, Normal color, Normal ROM , Normal temperature General lower extremity: Normal inspection, Nontender, Normal color, Normal ROM , Normal temperature, Normal weight bearing. No: Mary Jo's sign - Neurological Neuro grossly intact: Yes Sensory: Normal - Skin Skin Temperature: Warm Skin Moisture: Dry Skin Color: Normal Course - Re-evaluation Re-evalutation: 05/12/18 15:18 Laboratory studies show signs of urinary tract infection. Previous urinary cultures were reviewed showing Klebsiella sensitive to ceftriaxone patient was given a dose of Rocephin. Patient's mental status greatly improved more awake upon last evaluation requesting something to eat or drink denying any pain. Patient's case was discussed with PCP agrees with admission at this time for UTI and altered mental state - Vital Signs Vital signs: Temp Pulse Resp BP Pulse Ox 98.6 F 16 99/69 L 89 L 05/12/18 13:07 05/12/18 15:01 05/12/18 15:01 05/12/18 15:01 - Laboratory Result Diagrams: 05/12/18 12:15 05/12/18 12:15 Laboratory results interpreted by me: 05/12/18 05/12/18 05/12/18 12:15 12:15 12:15 RDW 17.3 H Plt Count 121 L PT 17.2 H Total Bilirubin 1.9 H Direct Bilirubin 0.7 H Total Protein 5.7 L Albumin 2.5 L Urine Ketones Urine Nitrite Ur Leukocyte Esterase 05/12/18 12:35 RDW Plt Count PT Total Bilirubin Direct Bilirubin Total Protein Albumin Urine Ketones TRACE H Urine Nitrite POSITIVE H Ur Leukocyte Esterase LARGE H Discharge - Discharge Clinical Impression: Encephalopathy Urinary tract infection Qualifiers: Urinary tract infection type: acute cystitis Hematuria presence: without hematuria Qualified Code(s): N30.00 - Acute cystitis without hematuria Condition: Good Disposition: ADMITTED INPATIENT Admitting Provider: [facility] Admitted: Medical Floor Referrals: DARLENE BANSAL MD [Primary Care Provider] - Follow up as needed
[2018-05-12] MEDS ORDERED: NORMAL SALINE 500 ML IV ONE (15:26)
[2018-05-12] MEDS: LEVOFLOXACIN 750 MG/D5W RTU 750 MG/150 ML RTUPB IV SCH (17:45)
[2018-05-12] MEDS: NORMAL SALINE 1000 ML 1,000 ML IV PRN (17:46)
[2018-05-12 19:02] LABS: LIPASE 22.6 U/L (23-300); PHOSPHORUS 3.6 mg/dL (2.5-4.5)
[2018-05-12 19:03] LABS: AMYLASE < 30 U/L (30-110)
[2018-05-12 20:20] LABS: INTERNATIONAL RATION (INR) 1.18; PROTHROMBIN TIME 15.6 SEC (11.4-15.4)
[2018-05-12 20:36] LABS: PARTIAL THROMBOPLASTIN TIME 23.9 SEC (23.5-35.8)
[2018-05-12 20:41] LABS: TROPONIN I 0.012 ng/mL
[2018-05-12 20:46] LABS: CREATINE KINASE MB 0.27 ng/mL (<4.55); FREE T4 (FREE THYROXINE) 1.68 ng/dL (0.78-2.19)
[2018-05-12] MEDS ORDERED: HYDROCODONE/ACETAMINOPHEN 7.5-325 MG TABLET PO PRN (20:58)
[2018-05-12] MEDS ORDERED: CYCLOBENZAPRINE HCL 10 MG TABLET PO PRN (20:58)
[2018-05-12 21:00] LABS: THYROID STIMULATING HORMONE 0.49 uIU/mL (0.47-4.68)
[2018-05-12 21:15] LABS: APPEARANCE,URINE CLOUDY; BILIRUBIN,URINE NEGATIVE (NEGATIVE); COLOR,URINE YELLOW; GLUCOSE, URINE NEGATIVE (NEGATIVE); KETONES,URINE TRACE mg/dL (NEGATIVE); LEUKOCYTE ESTERASE,URINE LARGE (NEGATIVE); NITRITE,URINE NEGATIVE (NEGATIVE); PROTEIN,URINE NEGATIVE (NEGATIVE); URINE SPECIFIC GRAVITY 1.018; UROBILINOGEN,URINE NEGATIVE mg/dL (<2.0)
[2018-05-12] MEDS: DONEPEZIL HCL 5 MG TABLET PO SCH (22:41)
[2018-05-12] MEDS: PREGABALIN 75 MG CAPSULE PO SCH (22:41)
[2018-05-12] MEDS: TOLTERODINE TARTRATE 1 MG TABLET PO SCH (22:41)
[2018-05-13] MEDS ORDERED: TOPIRAMATE 25 MG TABLET ONE (00:03)
[2018-05-13 02:36] LABS: ABSOLUTE EOSINOPHILS # (AUTO) 0.1 10^3/uL (0.0-0.6); ABSOLUTE LYMPHOCYTES (AUTO) 1.4 10^3/uL (0.5-4.7); ABSOLUTE MONOCYTES (AUTO) 0.5 10^3/uL (0.1-1.4); ABSOLUTE NEUT (AUTO) 4.4 10^3/uL (1.7-8.2); BASOPHILS % (AUTO) 0.4 % (0-2); HEMOGLOBIN 11.5 g/dL (12.0-15.5); LYMPHOCYTES % (AUTO) 21.6 % (13-45); MEAN CORPUSCULAR HEMOGLOBIN 31.2 pg (27.0-33.4); MEAN CORPUSCULAR HGB CONC 33.9 g/dL (32.0-36.0); MEAN CORPUSCULAR VOLUME 92 fl (80-97); MONOCYTES % (AUTO) 8.3 % (3-13); RED CELL DISTRIBUTION WIDTH 17.1 % (11.5-14.0); SEGMENTED NEUTROPHILS % (AUTO) 68.7 % (42-78); TOTAL CELLS COUNTED % (AUTO) 100 %; WHITE BLOOD COUNT 6.4 10^3/uL (4.0-10.5)
[2018-05-13 02:54] LABS: ALANINE AMINOTRANSFERASE 33 U/L (9-52); ALBUMIN 1.9 g/dL (3.5-5.0); ALKALINE PHOSPHATASE 50 U/L (38-126); ANION GAP 6 (5-19); ASPARTATE AMINO TRANSFERASE 24 U/L (14-36); BILIRUBIN,DIRECT 0.5 mg/dL (0.0-0.4); BILIRUBIN,TOTAL 1.6 mg/dL (0.2-1.3); BLOOD UREA NITROGEN 15 mg/dL (7-20); CARBON DIOXIDE 24 mmol/L (22-30); CHLORIDE 108 mmol/L (98-107); GLUCOSE 79 mg/dL (75-110); POTASSIUM 3.3 mmol/L (3.6-5.0); SODIUM 138.4 mmol/L (137-145); TOTAL PROTEIN 4.6 g/dL (6.3-8.2); TRIGLYCERIDES 63 mg/dL (<150)
[2018-05-13 03:15] LABS: TROPONIN I < 0.012 ng/mL
[2018-05-13 03:17] LABS: PLATELET COUNT 68 10^3/uL (150-450)
[2018-05-13 03:21] LABS: CHOLESTEROL < 50.00 mg/dL (0-200); DIRECT LDL < 30 mg/dL (<100)
[2018-05-13] MEDS: DULOXETINE HCL 20 MG CAPSULE.DR PO SCH ×3 (05:20→22:01)
[2018-05-13] MEDS: TOPIRAMATE 25 MG TABLET PO SCH ×3 (05:21→22:02)
[2018-05-13 09:11] LABS: CREATINE KINASE MB 0.46 ng/mL (<4.55)
[2018-05-13 09:15] LABS: TROPONIN I < 0.012 ng/mL
[2018-05-13] MEDS ORDERED: PHENTERMINE HCL 30 MG PO SCH (10:00)
[2018-05-13] MEDS ORDERED: CALCIUM CARBONATE 250 MG/VITAMIN D3 125 UNIT TABLET PO SCH (10:00)
[2018-05-13] MEDS: FERROUS SULFATE 325 MG TABLET PO SCH (11:16)
[2018-05-13] MEDS: CYANOCOBALAMIN (VITAMIN B-12) 1,000 MCG TABLET PO SCH (11:16)
[2018-05-13] MEDS: POTASSIUM CHLORIDE 10 MEQ CAPSULE.ER PO SCH (11:16)
[2018-05-13] MEDS: PREGABALIN 75 MG CAPSULE PO SCH ×2 (11:16→22:01)
[2018-05-13] MEDS: FOLIC ACID 1 MG TABLET PO SCH (11:17)
[2018-05-13] MEDS: PAROXETINE HCL 20 MG TABLET PO SCH (11:18)
[2018-05-13] MEDS: ENOXAPARIN SODIUM INJ 40 MG/0.4 ML DISP.SYRIN SUBCUT SCH (11:19)
[2018-05-13] MEDS: TOLTERODINE TARTRATE 1 MG TABLET PO SCH ×2 (11:19→22:01)
--- NOTE | 2018-05-13 14:06 | PDOC H&P ---
History of Present Illness Admission Date/PCP: 05/12/18 15:24 DARLENE BANSAL MD History of Present Illness: VITO SUÁREZ is a 68 year old female, she has underlying dementia, presently residing in the snf at [facility], she was transferred from the snf to the emergency room for evaluation of altered mental status, there was a concern she may have a stroke. A CT head was done, it was negative for any acute pathology. She has grossly abnormal urinalysis, she has a history of recurrent UTI, it was felt that the depressed sensorium is most likely from UTI , history taking was a challenge this patient because she is obtunded. 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 Past Surgical History Past Surgical History: Reports: Orthopedic Surgery Social History Smoking Status: Never Smoker Frequency of Alcohol Use: None Hx Recreational Drug Use: No Drugs: None Hx Prescription Drug Abuse: No - Advance Directive Resuscitation Status: Full Code Family History Family History: Reviewed & Not Pertinent Parental Family History Reviewed: Yes Children Family History Reviewed: Yes Sibling(s) Family History Reviewed.: Yes Medication/Allergy Home Medications: Cyclobenzaprine HCl [Flexeril 10 mg Tablet] 10 mg PO HSP PRN 03/16/18 Duloxetine HCl [Cymbalta 20 mg Capsule.dr] 20 mg PO Q12 03/16/18 Ferrous Sulfate [Feosol 325 mg Tablet] 325 mg PO DAILY 03/16/18 Folic Acid [Folvite 1 mg Tablet] 1 mg PO DAILY 03/16/18 Hydrocodone/Acetaminophen [Hydrocodone-Acetamin 7.5-325] 1 tab PO Q6HP PRN 03/16 Phentermine HCl 30 mg PO DAILY 03/16/18 Potassium Chloride [Klor-Con 10 Meq Capsule ER] 10 meq PO DAILY 03/16/18 Pregabalin [Lyrica] 75 mg PO Q12 03/16/18 Tolterodine Tartrate [Detrol] 2 mg PO BID 03/16/18 Cyanocobalamin (Vitamin B-12) [Vitamin B-12 1000 mcg Tablet] 1,000 mcg PO DAILY tablet 03/21/18 Donepezil HCl [Aricept 5 mg Tablet] 5 mg PO QHS #90 tablet 03/21/18 Nystatin [Mycostatin Cream 15 gm] 1 applic TP BIDP PRN tube 03/21/18 Paroxetine HCl [Paxil 20 mg Tablet] 20 mg PO DAILY #90 tablet 03/21/18 Topiramate [Topamax 25 mg Tablet] 50 mg PO Q12 tablet 03/21/18 Calcium Carbonate/Vitamin D3 [Os-Sai 250 mg with Vitamin D 125 Units] 1 tab PO DAILY 05/12/18 Allergies/Adverse Reactions: Penicillins Allergy (Intermediate, Verified 02/03/18 21:23) Rash Sulfa (Sulfonamide Antibiotics) Allergy (Intermediate, Verified 02/03/18 21:23) RASH IN MOUTH Review of Systems ROS unobtainable: Due to mental status Physical Exam Vital Signs: Temp Pulse Resp BP Pulse Ox 98.3 F 84 16 109/61 100 05/13/18 11:34 05/13/18 11:34 05/13/18 11:34 05/13/18 11:34 05/13/18 11:34 Intake & Output 05/12/18 05/13/18 05/14/18 06:59 06:59 06:59 Intake Total 125 Output Total 400 Balance -275 Weight 102.4 kg General appearance: PRESENT: obese Eye exam: PRESENT: PERRLA Mouth exam: PRESENT: moist, tongue midline Respiratory exam: PRESENT: clear to auscultation ayad Cardiovascular exam: PRESENT: RRR, +S1, +S2 GI/Abdominal exam: PRESENT: soft Rectal exam: PRESENT: deferred Neurological exam: PRESENT: alert Psychiatric exam: PRESENT: appropriate affect, normal mood Skin exam: PRESENT: dry, intact, warm Results Laboratory Results: 05/13/18 02:13 05/13/18 02:13 05/12/18 05/12/18 05/12/18 18:30 18:30 20:04 WBC RBC Hgb Hct MCV MCH MCHC RDW Plt Count Seg Neutrophils % Lymphocytes % Monocytes % Eosinophils % Basophils % Absolute Neutrophils Absolute Lymphocytes Absolute Monocytes Absolute Eosinophils Absolute Basophils Sodium Potassium Chloride Carbon Dioxide Anion Gap BUN Creatinine Est GFR ( Amer) Est GFR (Non-Af Amer) Glucose Calcium Phosphorus 3.6 Magnesium 1.7 Total Bilirubin AST ALT Alkaline Phosphatase Ammonia 21.9 Total Protein Albumin Triglycerides Cholesterol LDL Cholesterol Direct VLDL Cholesterol HDL Cholesterol Amylase < 30 L Lipase 22.6 L TSH 0.49 Free T4 1.68 Urine Color Urine Appearance Urine pH Ur Specific [place] Urine Protein Urine Glucose (UA) Urine Ketones Urine Blood Urine Nitrite Ur Leukocyte Esterase Urine WBC (Auto) Urine RBC (Auto) 05/12/18 05/13/18 05/13/18 20:45 02:13 02:13 WBC 6.4 RBC 3.70 L Hgb 11.5 L Hct 34.0 L MCV 92 MCH 31.2 MCHC 33.9 RDW 17.1 H Plt Count 68 L Seg Neutrophils % 68.7 Lymphocytes % 21.6 Monocytes % 8.3 Eosinophils % 1.0 Basophils % 0.4 Absolute Neutrophils 4.4 Absolute Lymphocytes 1.4 Absolute Monocytes 0.5 Absolute Eosinophils 0.1 Absolute Basophils 0.0 Sodium 138.4 Potassium 3.3 L Chloride 108 H Carbon Dioxide 24 Anion Gap 6 BUN 15 Creatinine 0.66 Est GFR ( Amer) > 60 Est GFR (Non-Af Amer) > 60 Glucose 79 Calcium 8.0 L Phosphorus Magnesium Total Bilirubin 1.6 H AST 24 ALT 33 Alkaline Phosphatase 50 Ammonia Total Protein 4.6 L Albumin 1.9 L Triglycerides 63 Cholesterol < 50.00 LDL Cholesterol Direct < 30 VLDL Cholesterol 13.0 HDL Cholesterol 15 L Amylase Lipase TSH Free T4 Urine Color YELLOW Urine Appearance CLOUDY Urine pH 5.0 Ur Specific [place] 1.018 Urine Protein NEGATIVE Urine Glucose (UA) NEGATIVE Urine Ketones TRACE H Urine Blood NEGATIVE Urine Nitrite NEGATIVE Ur Leukocyte Esterase LARGE H Urine WBC (Auto) 157 Urine RBC (Auto) 6 05/12/18 05/12/18 05/13/18 20:04 20:04 02:13 CK-MB (CK-2) 0.27 0.30 Troponin I 0.012 < 0.012 NT-Pro-B Natriuret Pep 379 05/13/18 08:28 CK-MB (CK-2) 0.46 Troponin I < 0.012 NT-Pro-B Natriuret Pep Impressions: Chest X-Ray 05/12/18 11:52 IMPRESSION: NO ACUTE DISEASE. Head CT 05/12/18 11:52 IMPRESSION: NORMAL BRAIN CT WITHOUT CONTRAST. EVIDENCE OF ACUTE STROKE: NO. Assessment & Plan - Diagnosis (1) Urinary tract infection Qualifiers: Urinary tract infection type: site unspecified Hematuria presence: without hematuria Qualified Code(s): N39.0 - Urinary tract infection, site not specified Is this a current diagnosis for this admission?: Yes Plan: She has UTI empirically started on IV antibiotic (2) Metabolic encephalopathy Is this a current diagnosis for this admission?: Yes Plan: This is most likely secondary to UTI
--- NOTE | 2018-05-13 16:32 | PDOC PROGRESS REPORT ---
Subjective Progress Note for:: 05/13/18 Subjective:: She is more responsive today, the urine culture grew gram-negative linda Reason For Visit: UTI,METABOLIC ENCEPHALOPATHY Physical Exam Vital Signs: Temp Pulse Resp BP Pulse Ox 98.3 F 84 16 109/61 100 05/13/18 11:34 05/13/18 11:34 05/13/18 11:34 05/13/18 11:34 05/13/18 11:34 Intake & Output 05/12/18 05/13/18 05/14/18 06:59 06:59 06:59 Intake Total 125 Output Total 400 375 Balance -275 -375 Weight 102.4 kg General appearance: PRESENT: no acute distress Eye exam: PRESENT: PERRLA Respiratory exam: PRESENT: clear to auscultation ayad Cardiovascular exam: PRESENT: +S1, +S2 GI/Abdominal exam: PRESENT: soft Neurological exam: PRESENT: alert Results Laboratory Results: 05/13/18 02:13 05/13/18 02:13 05/12/18 05/12/18 05/12/18 18:30 18:30 20:04 WBC RBC Hgb Hct MCV MCH MCHC RDW Plt Count Seg Neutrophils % Lymphocytes % Monocytes % Eosinophils % Basophils % Absolute Neutrophils Absolute Lymphocytes Absolute Monocytes Absolute Eosinophils Absolute Basophils Sodium Potassium Chloride Carbon Dioxide Anion Gap BUN Creatinine Est GFR ( Amer) Est GFR (Non-Af Amer) Glucose Calcium Phosphorus 3.6 Magnesium 1.7 Total Bilirubin AST ALT Alkaline Phosphatase Ammonia 21.9 Total Protein Albumin Triglycerides Cholesterol LDL Cholesterol Direct VLDL Cholesterol HDL Cholesterol Amylase < 30 L Lipase 22.6 L TSH 0.49 Free T4 1.68 Urine Color Urine Appearance Urine pH Ur Specific [place] Urine Protein Urine Glucose (UA) Urine Ketones Urine Blood Urine Nitrite Ur Leukocyte Esterase Urine WBC (Auto) Urine RBC (Auto) 05/12/18 05/13/18 05/13/18 20:45 02:13 02:13 WBC 6.4 RBC 3.70 L Hgb 11.5 L Hct 34.0 L MCV 92 MCH 31.2 MCHC 33.9 RDW 17.1 H Plt Count 68 L Seg Neutrophils % 68.7 Lymphocytes % 21.6 Monocytes % 8.3 Eosinophils % 1.0 Basophils % 0.4 Absolute Neutrophils 4.4 Absolute Lymphocytes 1.4 Absolute Monocytes 0.5 Absolute Eosinophils 0.1 Absolute Basophils 0.0 Sodium 138.4 Potassium 3.3 L Chloride 108 H Carbon Dioxide 24 Anion Gap 6 BUN 15 Creatinine 0.66 Est GFR ( Amer) > 60 Est GFR (Non-Af Amer) > 60 Glucose 79 Calcium 8.0 L Phosphorus Magnesium Total Bilirubin 1.6 H AST 24 ALT 33 Alkaline Phosphatase 50 Ammonia Total Protein 4.6 L Albumin 1.9 L Triglycerides 63 Cholesterol < 50.00 LDL Cholesterol Direct < 30 VLDL Cholesterol 13.0 HDL Cholesterol 15 L Amylase Lipase TSH Free T4 Urine Color YELLOW Urine Appearance CLOUDY Urine pH 5.0 Ur Specific [place] 1.018 Urine Protein NEGATIVE Urine Glucose (UA) NEGATIVE Urine Ketones TRACE H Urine Blood NEGATIVE Urine Nitrite NEGATIVE Ur Leukocyte Esterase LARGE H Urine WBC (Auto) 157 Urine RBC (Auto) 6 05/12/18 05/12/18 05/13/18 20:04 20:04 02:13 CK-MB (CK-2) 0.27 0.30 Troponin I 0.012 < 0.012 NT-Pro-B Natriuret Pep 379 05/13/18 08:28 CK-MB (CK-2) 0.46 Troponin I < 0.012 NT-Pro-B Natriuret Pep Impressions: Chest X-Ray 05/12/18 11:52 IMPRESSION: NO ACUTE DISEASE. Head CT 05/12/18 11:52 IMPRESSION: NORMAL BRAIN CT WITHOUT CONTRAST. EVIDENCE OF ACUTE STROKE: NO. Assessment & Plan - Diagnosis (1) Urinary tract infection Qualifiers: Urinary tract infection type: site unspecified Hematuria presence: without hematuria Qualified Code(s): N39.0 - Urinary tract infection, site not specified Is this a current diagnosis for this admission?: Yes Plan: Continue IV antibiotic (2) Metabolic encephalopathy Is this a current diagnosis for this admission?: Yes
[2018-05-13] MEDS: LEVOFLOXACIN 750 MG/D5W RTU 750 MG/150 ML RTUPB IV SCH (18:11)
[2018-05-13] MEDS: NORMAL SALINE 1000 ML 1,000 ML IV PRN (18:11)
[2018-05-13] MEDS ORDERED: DULOXETINE HCL 20 MG CAPSULE.DR PO ONE (21:34)
[2018-05-13] MEDS: DONEPEZIL HCL 5 MG TABLET PO SCH (22:01)
--- NOTE | 2018-05-13 23:30 | EKG REPORT ---
SEVERITY:- ABNORMAL ECG - SINUS TACHYCARDIA WITH APCS BORDERLINE LEFT AXIS DEVIATION NONSPECIFIC T ABNORMALITIES, ANT-LAT LEADS : Confirmed by: April Wallis 13-May-2018 23:30:19
[2018-05-14 06:11] LABS: ABSOLUTE EOSINOPHILS # (AUTO) 0.1 10^3/uL (0.0-0.6); ABSOLUTE LYMPHOCYTES (AUTO) 0.9 10^3/uL (0.5-4.7); ABSOLUTE MONOCYTES (AUTO) 0.4 10^3/uL (0.1-1.4); BASOPHILS % (AUTO) 0.3 % (0-2); EOSINOPHILS % (AUTO) 1.2 % (0-6); HEMATOCRIT 35.4 % (36.0-47.0); HEMOGLOBIN 12.2 g/dL (12.0-15.5); LYMPHOCYTES % (AUTO) 16.8 % (13-45); MEAN CORPUSCULAR HEMOGLOBIN 31.7 pg (27.0-33.4); MEAN CORPUSCULAR HGB CONC 34.3 g/dL (32.0-36.0); MEAN CORPUSCULAR VOLUME 92 fl (80-97); MONOCYTES % (AUTO) 7.5 % (3-13); RED BLOOD COUNT 3.83 10^6/uL (3.72-5.28); RED CELL DISTRIBUTION WIDTH 16.9 % (11.5-14.0); SEGMENTED NEUTROPHILS % (AUTO) 74.2 % (42-78); TOTAL CELLS COUNTED % (AUTO) 100 %; WHITE BLOOD COUNT 5.4 10^3/uL (4.0-10.5)
[2018-05-14 07:06] LABS: PLATELET COUNT 66 10^3/uL (150-450)
[2018-05-14] MEDS: PREGABALIN 75 MG CAPSULE PO SCH ×2 (09:21→21:46)
[2018-05-14] MEDS: CYANOCOBALAMIN (VITAMIN B-12) 1,000 MCG TABLET PO SCH (09:21)
[2018-05-14] MEDS: FERROUS SULFATE 325 MG TABLET PO SCH (09:21)
[2018-05-14] MEDS: POTASSIUM CHLORIDE 10 MEQ CAPSULE.ER PO SCH (09:21)
[2018-05-14] MEDS: ENOXAPARIN SODIUM INJ 40 MG/0.4 ML DISP.SYRIN SUBCUT SCH (09:21)
[2018-05-14] MEDS: CALCIUM CARBONATE 250 MG/VITAMIN D3 125 UNIT TABLET PO SCH (09:22)
[2018-05-14] MEDS: TOPIRAMATE 25 MG TABLET PO SCH ×2 (09:22→21:48)
[2018-05-14] MEDS: PAROXETINE HCL 20 MG TABLET PO SCH (09:28)
[2018-05-14] MEDS: FOLIC ACID 1 MG TABLET PO SCH (09:30)
[2018-05-14] MEDS: TOLTERODINE TARTRATE 1 MG TABLET PO SCH ×2 (09:46→21:46)
[2018-05-14] MEDS: NORMAL SALINE 1000 ML 1,000 ML IV PRN (09:46)
[2018-05-14] MEDS: DULOXETINE HCL 20 MG CAPSULE.DR PO SCH ×2 (09:46→21:45)
--- NOTE | 2018-05-14 09:52 | Physician Advisory Note ---
Physician Advisor ProgressNote .: [facility] to [facility], I have reviewed the medical record for this patient. Physician Advisor Statement: Please consider documenting, if you agree: 1. "stage 2 sacral decub, present on adm" 2. Medical necessity - reasons pt still needing to be in hospital still each day 3. Is her hypoxemia at times 10/6 concerning, or ? Status: Pt w/underlying dementia but significantly decreased responsiveness enough to concern her SNF staff for possible CVA, found to have UTI. After 1MN, ur cx growing GNR, & 1 of 2 BCs growing GPC. Pt described as "more responsive" (?still not back to baseline?), attg kept in hospital for 2nd MN ( suspect probably to continue abx w/close monitoring due to not yet knowing source/senstivities &/or pt not back to baseline yet mental status-[place]). Appropriate for Inpt status w/explicit documentation of reason(s) pt needed 2nd MN. Thanks! CK
--- NOTE | 2018-05-14 14:21 | Progress Note ---
Provider Note Provider Note: ID Consult Note Asked by Pharmacy to review patient's chart. Pt not seen or examined. Reviewed VS, provider notes, labs. Ms. Camarillo is a 68 year old female fdc resident with dementia who presented to the [facility] ED on 05/12/18 for decreased responsiveness "earlier this morning when family came to check on her." Pt was not able to substantial information during HPI to ED provider or to admitting physician. CT head was unremarkable. Pt received Rocephin in the ED for UTI suspected to underlie her altered sensorium. U/A was obtained, which had large amount of leukocyte esterase, 157 WBC/hpf. Greater than >100k cfu E coli grew from the urine culture. BCx show GPCs in clusters in one blood culture bottle of one set. The patient was continued on Levaquin as an inpatient, but now the susceptibility results reveal the patient's urine culture isolate to be resistant to fluoroquinolones. Pt has sulfa allergy and allergy to penicillin in her chart. Pt had improvement noted in alertness. Impression/Recommendations Possible UTI - The diagnosis of UTI as a cause of delirium in an elderly demented patient unable to provide history is difficult. Urine culture growth does not establish that delirium/AMS was due to UTI. U/A abnormalities are also not specific enough to allow for UTI diagnosis and have to be compled with typical irritative urinary symptoms/signs (e.g. suprapubic tenderness on exam or complaints of suprapubic discomfort or dysuria). Pt has no increased WBC count or fever or hypothermia to suggest acute inflammation associated with bacteriuria. - Consideration can be given to observing patient carefully off of any antibiotics considering if she lacks other supportive features for diagnosis of UTI and if she has shown sustained improvement without effective antibiotic therapy for the past 2 days (05/13-05/14, isolate resistant to fluoroquinolones, pt on Levaquin.) - If there compelling evidence to suggest she needs continued treatment for UTI , then switch from Levaquin to Keflex PO 500 mg BID to complete 5 days of treatment or for uncomplicated UTI Macrobid. Peterson Dhaliwal MD [facility] Infectious Diseases pager [phone]
[2018-05-14] MEDS ORDERED: LEVOFLOXACIN 750 MG TABLET PO SCH (18:00)
--- NOTE | 2018-05-14 20:51 | PDOC PROGRESS REPORT ---
Subjective Progress Note for:: 05/14/18 Subjective:: The urine culture grew E. coli, the E. coli is resistant to fluoroquinolones sensitive to penicillin and Bactrim but patient is allergic to penicillin and sulfa drugs, she was seen by the bedside she is alert Reason For Visit: UTI, METABOLIC ENCEPHALOPATHY Physical Exam Vital Signs: Temp Pulse Resp BP Pulse Ox 97.7 F 86 14 117/65 97 05/14/18 19:48 05/14/18 19:48 05/14/18 19:48 05/14/18 19:48 05/14/18 19:48 Intake & Output 05/13/18 05/14/18 05/15/18 06:59 06:59 06:59 Output Total 240 Balance -240 General appearance: PRESENT: no acute distress Eye exam: PRESENT: PERRLA Respiratory exam: PRESENT: clear to auscultation ayad Cardiovascular exam: PRESENT: +S1, +S2 GI/Abdominal exam: PRESENT: soft Neurological exam: PRESENT: alert Results Impressions: Chest X-Ray 05/12/18 11:52 IMPRESSION: NO ACUTE DISEASE. Head CT 05/12/18 11:52 IMPRESSION: NORMAL BRAIN CT WITHOUT CONTRAST. EVIDENCE OF ACUTE STROKE: NO. Assessment & Plan - Diagnosis (1) Urinary tract infection Qualifiers: Urinary tract infection type: site unspecified Hematuria presence: without hematuria Qualified Code(s): N39.0 - Urinary tract infection, site not specified Is this a current diagnosis for this admission?: Yes (2) Metabolic encephalopathy Is this a current diagnosis for this admission?: Yes (3) E. coli UTI Is this a current diagnosis for this admission?: Yes Plan: cordell Gonzales
[2018-05-14] MEDS: DONEPEZIL HCL 5 MG TABLET PO SCH (21:45)
[2018-05-14] MEDS: NITROFURANTOIN MONOHYD/M-CRYST 100 MG CAPSULE PO SCH (22:02)
[2018-05-15 06:04] LABS: ABSOLUTE EOSINOPHILS # (AUTO) 0.1 10^3/uL (0.0-0.6); ABSOLUTE LYMPHOCYTES (AUTO) 0.8 10^3/uL (0.5-4.7); ABSOLUTE MONOCYTES (AUTO) 0.4 10^3/uL (0.1-1.4); ABSOLUTE NEUT (AUTO) 2.7 10^3/uL (1.7-8.2); BASOPHILS % (AUTO) 0.3 % (0-2); EOSINOPHILS % (AUTO) 2.5 % (0-6); HEMATOCRIT 37.6 % (36.0-47.0); HEMOGLOBIN 12.6 g/dL (12.0-15.5); LYMPHOCYTES % (AUTO) 19.7 % (13-45); MEAN CORPUSCULAR HEMOGLOBIN 31.4 pg (27.0-33.4); MEAN CORPUSCULAR HGB CONC 33.6 g/dL (32.0-36.0); MEAN CORPUSCULAR VOLUME 93 fl (80-97); MONOCYTES % (AUTO) 10.4 % (3-13); RED BLOOD COUNT 4.02 10^6/uL (3.72-5.28); RED CELL DISTRIBUTION WIDTH 17.6 % (11.5-14.0); SEGMENTED NEUTROPHILS % (AUTO) 67.1 % (42-78); TOTAL CELLS COUNTED % (AUTO) 100 %; WHITE BLOOD COUNT 4.1 10^3/uL (4.0-10.5)
[2018-05-15 06:19] LABS: ALANINE AMINOTRANSFERASE 34 U/L (9-52); ALKALINE PHOSPHATASE 54 U/L (38-126); ASPARTATE AMINO TRANSFERASE 33 U/L (14-36); BILIRUBIN,DIRECT 0.6 mg/dL (0.0-0.4); BILIRUBIN,TOTAL 1.4 mg/dL (0.2-1.3); BLOOD UREA NITROGEN 13 mg/dL (7-20); CALCIUM 7.8 mg/dL (8.4-10.2); GLUCOSE 82 mg/dL (75-110); POTASSIUM 3.5 mmol/L (3.6-5.0); TOTAL PROTEIN 4.7 g/dL (6.3-8.2)
[2018-05-15 06:24] LABS: CARBON DIOXIDE 27 mmol/L (22-30); CHLORIDE 110 mmol/L (98-107)
[2018-05-15 06:27] LABS: ANION GAP 3 (5-19)
[2018-05-15 06:37] LABS: PLATELET COUNT 52 10^3/uL (150-450)
[2018-05-15] MEDS: ENOXAPARIN SODIUM INJ 40 MG/0.4 ML DISP.SYRIN SUBCUT SCH (09:51)
[2018-05-15] MEDS: TOLTERODINE TARTRATE 1 MG TABLET PO SCH ×2 (09:57→21:12)
[2018-05-15] MEDS: TOPIRAMATE 25 MG TABLET PO SCH ×2 (09:57→21:12)
[2018-05-15] MEDS: NITROFURANTOIN MONOHYD/M-CRYST 100 MG CAPSULE PO SCH ×2 (09:57→21:12)
[2018-05-15] MEDS: PAROXETINE HCL 20 MG TABLET PO SCH (09:58)
[2018-05-15] MEDS: PREGABALIN 75 MG CAPSULE PO SCH ×2 (09:58→21:12)
[2018-05-15] MEDS: POTASSIUM CHLORIDE 10 MEQ CAPSULE.ER PO SCH (09:58)
[2018-05-15] MEDS: CALCIUM CARBONATE 250 MG/VITAMIN D3 125 UNIT TABLET PO SCH (09:58)
[2018-05-15] MEDS: DULOXETINE HCL 20 MG CAPSULE.DR PO SCH ×2 (09:58→21:12)
[2018-05-15] MEDS: FERROUS SULFATE 325 MG TABLET PO SCH (09:58)
[2018-05-15] MEDS: FOLIC ACID 1 MG TABLET PO SCH (09:58)
[2018-05-15] MEDS: CYANOCOBALAMIN (VITAMIN B-12) 1,000 MCG TABLET PO SCH (09:58)
[2018-05-15] MEDS: NORMAL SALINE 1000 ML 1,000 ML IV PRN (15:56)
[2018-05-15] MEDS: DONEPEZIL HCL 5 MG TABLET PO SCH (21:12)
[2018-05-16] MEDS: ENOXAPARIN SODIUM INJ 40 MG/0.4 ML DISP.SYRIN SUBCUT SCH (09:55)
[2018-05-16] MEDS: FOLIC ACID 1 MG TABLET PO SCH (09:55)
[2018-05-16] MEDS: TOPIRAMATE 25 MG TABLET PO SCH (09:55)
[2018-05-16] MEDS: PAROXETINE HCL 20 MG TABLET PO SCH (09:55)
[2018-05-16] MEDS: DULOXETINE HCL 20 MG CAPSULE.DR PO SCH (09:55)
[2018-05-16] MEDS: POTASSIUM CHLORIDE 10 MEQ CAPSULE.ER PO SCH (09:55)
[2018-05-16] MEDS: PREGABALIN 75 MG CAPSULE PO SCH (09:55)
[2018-05-16] MEDS: CYANOCOBALAMIN (VITAMIN B-12) 1,000 MCG TABLET PO SCH (09:55)
[2018-05-16] MEDS: NITROFURANTOIN MONOHYD/M-CRYST 100 MG CAPSULE PO SCH (09:55)
[2018-05-16] MEDS: FERROUS SULFATE 325 MG TABLET PO SCH (09:55)
[2018-05-16] MEDS: CALCIUM CARBONATE 250 MG/VITAMIN D3 125 UNIT TABLET PO SCH (09:55)
[2018-05-16] MEDS: TOLTERODINE TARTRATE 1 MG TABLET PO SCH (09:56)
[2018-05-16 16:06] LABS: ALANINE AMINOTRANSFERASE 33 U/L (9-52); ALBUMIN 2.4 g/dL (3.5-5.0); ALKALINE PHOSPHATASE 72 U/L (38-126); ANION GAP 8 (5-19); ASPARTATE AMINO TRANSFERASE 35 U/L (14-36); BILIRUBIN,DIRECT 0.5 mg/dL (0.0-0.4); BILIRUBIN,TOTAL 1.5 mg/dL (0.2-1.3); BLOOD UREA NITROGEN 11 mg/dL (7-20); CALCIUM 8.1 mg/dL (8.4-10.2); CARBON DIOXIDE 23 mmol/L (22-30); CHLORIDE 110 mmol/L (98-107); GLUCOSE 97 mg/dL (75-110); POTASSIUM 3.9 mmol/L (3.6-5.0); SODIUM 141.4 mmol/L (137-145); TOTAL PROTEIN 5.6 g/dL (6.3-8.2)
--- NOTE | 2018-05-16 16:06 | PDOC PROGRESS REPORT ---
Subjective Progress Note for:: 05/15/18 Subjective:: Patient was seen by the bedside, she is alert and oriented, she be transferred to the assisted Reason For Visit: UTI, METABOLIC ENCEPHALOPATHY Physical Exam Vital Signs: Temp Pulse Resp BP Pulse Ox 97.7 F 85 12 126/84 H 98 05/16/18 12:07 05/16/18 12:07 05/16/18 12:07 05/16/18 12:07 05/16/18 12:07 Intake & Output 05/15/18 05/16/18 05/17/18 06:59 06:59 06:59 Intake Total 1000 1150 Output Total 340 450 Balance 660 700 Weight 94.6 kg 100.3 kg General appearance: PRESENT: no acute distress Eye exam: PRESENT: PERRLA Respiratory exam: PRESENT: clear to auscultation ayad Cardiovascular exam: PRESENT: +S1, +S2 GI/Abdominal exam: PRESENT: soft Neurological exam: PRESENT: alert Results Laboratory Results: 05/15/18 04:48 Impressions: Chest X-Ray 05/12/18 11:52 IMPRESSION: NO ACUTE DISEASE. Head CT 05/12/18 11:52 IMPRESSION: NORMAL BRAIN CT WITHOUT CONTRAST. EVIDENCE OF ACUTE STROKE: NO. Assessment & Plan - Diagnosis (1) Urinary tract infection Qualifiers: Urinary tract infection type: site unspecified Hematuria presence: without hematuria Qualified Code(s): N39.0 - Urinary tract infection, site not specified Is this a current diagnosis for this admission?: Yes (2) Metabolic encephalopathy Is this a current diagnosis for this admission?: Yes (3) E. coli UTI Is this a current diagnosis for this admission?: Yes
--- NOTE | 2018-05-16 16:11 | PDOC TRANSFER SUMMARY ---
General - Admit/Disc Date/PCP Admission Date/Primary Care Provider: 05/14/18 16:13 DARLENE BANSAL MD Discharge Date: 05/16/18 - Discharge Diagnosis (1) E. coli UTI Is this a current diagnosis for this admission?: Yes (2) Urinary tract infection Is this a current diagnosis for this admission?: Yes (3) Metabolic encephalopathy Is this a current diagnosis for this admission?: Yes (4) Dementia Is this a current diagnosis for this admission?: Yes - Additional Information Resuscitation Status: Full Code Prescriptions: RX: Nitrofurantoin Monohyd/M-Cryst [Macrobid 100 mg Capsule] 100 mg PO Q12 #20 capsule Home Medications: RX: Cyclobenzaprine HCl [Flexeril 10 mg Tablet] 10 mg PO HSP PRN 03/16/18 RX: Duloxetine HCl [Cymbalta 20 mg Capsule.dr] 20 mg PO Q12 03/16/18 RX: Ferrous Sulfate [Feosol 325 mg Tablet] 325 mg PO DAILY 03/16/18 RX: Folic Acid [Folvite 1 mg Tablet] 1 mg PO DAILY 03/16/18 RX: Hydrocodone/Acetaminophen [Hydrocodone-Acetamin 7.5-325] 1 tab PO Q6HP PRN 03/16/18 RX: Phentermine HCl 30 mg PO DAILY 03/16/18 RX: Potassium Chloride [Klor-Con 10 Meq Capsule ER] 10 meq PO DAILY 03/16/18 RX: Pregabalin [Lyrica] 75 mg PO Q12 03/16/18 RX: Tolterodine Tartrate [Detrol] 2 mg PO BID 03/16/18 RX: Cyanocobalamin (Vitamin B-12) [Vitamin B-12 1000 mcg Tablet] 1,000 mcg PO DAILY tablet 03/21/18 RX: Donepezil HCl [Aricept 5 mg Tablet] 5 mg PO QHS #90 tablet 03/21/18 RX: Nystatin [Mycostatin Cream 15 gm] 1 applic TP BIDP PRN tube 03/21/18 RX: Paroxetine HCl [Paxil 20 mg Tablet] 20 mg PO DAILY #90 tablet 03/21/18 RX: Topiramate [Topamax 25 mg Tablet] 50 mg PO Q12 tablet 03/21/18 RX: Calcium Carbonate/Vitamin D3 [Os-Sai 250 mg with Vitamin D 125 Units] 1 tab PO DAILY 05/12/18 RX: Nitrofurantoin Monohyd/M-Cryst [Macrobid 100 mg Capsule] 100 mg PO Q12 #20 capsule 05/16/18 History of Present Illness Admission Date/PCP: 05/14/18 16:13 DARLENE BANSAL MD History of Present Illness: VITO SUÁREZ is a 68 year old female, she presented to the emergency room for evaluation of altered mental status Hospital Course Hospital Course: She was admitted for the management of altered mental status, CT head was done negative for any acute pathology, the urine culture grew E. coli resistant to fluoroquinolones sensitive to penicillin, Bactrim and Macrobid. She has allergy to penicillin and sulfa drugs on admission she was initially empirically treated with Levaquin for UTI but the pathogen was resistant to Levaquin when the sensitivity results return. Patient did respond to IV antibiotic she regained full alertness after been on the antibiotic for a few days. She has a background dementia, she be transferred back to retirement for continuity of care Physical Exam Vital Signs: Temp Pulse Resp BP Pulse Ox 97.7 F 85 12 126/84 H 98 05/16/18 12:07 05/16/18 12:07 05/16/18 12:07 05/16/18 12:07 05/16/18 12:07 Intake & Output 05/15/18 05/16/18 05/17/18 06:59 06:59 06:59 Intake Total 1000 1150 Output Total 340 450 Balance 660 700 Weight 94.6 kg 100.3 kg General appearance: PRESENT: no acute distress Eye exam: PRESENT: PERRLA Respiratory exam: PRESENT: clear to auscultation ayad Cardiovascular exam: PRESENT: +S1, +S2 GI/Abdominal exam: PRESENT: soft Neurological exam: PRESENT: alert Results Laboratory Results: 05/15/18 04:48 Impressions: Chest X-Ray 05/12/18 11:52 IMPRESSION: NO ACUTE DISEASE. Head CT 05/12/18 11:52 IMPRESSION: NORMAL BRAIN CT WITHOUT CONTRAST. EVIDENCE OF ACUTE STROKE: NO. Qualifiers - * PATIENT BEING DISCHARGED WITH ANY OF THE FOLLOWING DIAGNOSIS: No
[2018-05-16 20:20] VITALS: BP 136/89
== END 2018-05-16 20:15 | DRG 689 ==
LOC: ER 11:42 → EH 15:24 → UNDOADMOB 15:24 → INTOOBSV 15:24 → 4N 16:49 → EH 16:49 → 4N 17:08 → OBSVTOIN 05-14 16:13
PROVIDERS: ADMIT Internal Medicine; ATTEND Internal Medicine
DX: N39.0 Urinary tract infection, site not specified (principal); G93.41 Metabolic encephalopathy; B96.20 Unspecified Escherichia coli [E. coli] as the cause of diseases classified elsewhere; F03.90 Unspecified dementia, unspecified severity, without behavioral disturbance, psychotic disturbance, mood disturbance, and anxiety; Z16.23 Resistance to quinolones and fluoroquinolones; I10 Essential (primary) hypertension; E11.9 Type 2 diabetes mellitus without complications; M19.90 Unspecified osteoarthritis, unspecified site; Z79.899 Other long term (current) drug therapy; Z88.2 Allergy status to sulfonamides; Z88.0 Allergy status to penicillin; Z96.659 Presence of unspecified artificial knee joint
CPT/HCPCS: 36415; 70450; 71045; 80048; 80053; 80061; 80076; 81001; 82140; 82150; 82553; 82803; 82962; 83036; 83605; 83690; 83735; 83880; 84100; 84439; 84443; 84484; 85025; 85610; 85730; 87040; 87077; 87086; 87088; 87186; 93005; 93010; 96361; 96365; 99285; G0378; G8978-GP; G8979-GP; J0696; J1956; J3490; J7030; J8499

== ENCOUNTER 2018-06-17 09:59 | Inpatient (IN) | payer MEDICARE, BC ==
[2018-06-17] MEDS ORDERED: NALOXONE HCL INJ/PF 0.4 MG/1 ML SDV ONE (10:09)
[2018-06-17] MEDS ORDERED: NALOXONE HCL INJ 2 MG/2 ML DISP.SYRIN ONE ×2 (10:10)
--- NOTE | 2018-06-17 10:19 | ER Document Report ---
ED General - General Stated Complaint: ALTERED MENTAL STATUS Time Seen by Provider: 06/17/18 10:08 TRAVEL OUTSIDE OF THE [place] IN LAST 30 DAYS: No - HPI Notes: Patient is a 68-year-old female that presents to the emergency department for chief complaint of metal status change. Patient was last seen normal at 8 PM last night during evening rounds. She lives at a half-way facility and around 930 this morning during morning rounds nursing staff noticed she was not responsive. EMS states her oxygen was in the mid 80s when they arrived. Patient has not received any morning medications but does have pain medicine listed in her chronic medications. HPI is limited because of patient's current acuity of condition. Past Medical History: Reviewed in chart Past Surgical History: Reviewed in chart Social History: Reviewed in chart Family History: Reviewed and noncontributory for presenting illness Allergies: Reviewed, see documented allergy list. REVIEW OF SYSTEMS: Unable to obtain because of current mental status PHYSICAL EXAMINATION: Vital signs reviewed, nursing noted reviewed. GENERAL: Somnolent, obese HEAD: Atraumatic, normocephalic. EYES: Eyes appear normal, extraocular movements intact, sclera anicteric, conjunctiva are normal. ENT: nares patent, oropharynx clear without exudates. Moist mucous membranes. NECK: Normal range of motion, supple without lymphadenopathy LUNGS: Diffuse rhonchi. Shallow respirations. HEART: Regular rate and rhythm without murmurs ABDOMEN: Soft, nontender, normoactive bowel sounds. No rebound, guarding, or rigidity. No masses appreciated. EXTREMITIES: Nontender, good range of motion, no pitting or edema. NEUROLOGICAL: GCS 11. Patient following commands, mumbling incomprehensibly and will open eyes to verbal stimuli. Moving all extremities. PSYCH: Nonverbal SKIN: Warm, Dry, normal turgor, bilateral upper extremity ecchymosis - Related Data Allergies/Adverse Reactions: Penicillins Allergy (Intermediate, Verified 06/17/18 11:55) Rash Sulfa (Sulfonamide Antibiotics) Allergy (Intermediate, Verified 06/17/18 11:55) RASH IN MOUTH Past Medical History - Social History Smoking Status: Unknown if Ever Smoked Family History: Reviewed & Not Pertinent - Past Medical History Cardiac Medical History: Reports: Hx Hypertension Neurological Medical History: Denies: Hx Cerebrovascular Accident Endocrine Medical History: Reports: Hx Diabetes Mellitus Type 2 Renal/ Medical History: Denies: Hx Peritoneal Dialysis GI Medical History: Denies: Hx Ulcer Musculoskeletal Medical History: Reports Hx Arthritis - knees, Reports Hx Musculoskeletal Deformity, Reports Hx Musculoskeletal Trauma Psychiatric Medical History: Reports: Hx Dementia Denies: Hx Depression Past Surgical History: Reports: Hx Orthopedic Surgery. Denies: Hx Hysterectomy , Hx Mastectomy, Hx Open Heart Surgery, Hx Pacemaker - Immunizations Hx Diphtheria, Pertussis, Tetanus Vaccination: No - unknown Hx Pneumococcal Vaccination: 05/07/09 Review of Systems - Review of Systems Notes: Dictated Physical Exam - Vital signs Vitals: Pulse Resp BP Pulse Ox 102 H 26 H 100/49 L 95 06/17/18 10:07 06/17/18 10:07 06/17/18 10:07 06/17/18 10:07 - Notes Notes: Dictated Course - Re-evaluation Re-evalutation: 06/17/18 10:18 Vitals reviewed. Patient arrived by EMS with a GCS of 11. She was given Narcan with no change in mental status. Patient is oxygenating well on nonrebreather. She has coarse lung sounds bilaterally. She is currently following commands and protecting her airway. 06/17/18 12:33 Patient reevaluated and is slightly more awake than when she initially arrived. ABG showed hypoxia with no acidosis. Chest x-ray shows hypo-ventilation with no pneumonia or pneumothorax. Patient's hypoxia likely related to hypoventilation. Her lab work shows a slight leukocytosis at 10.6. She does have a urinary tract infection and will be treated with Rocephin. CT brain shows no acute intracranial pathology. Laboratory 06/17/18 06/17/18 06/17/18 10:41 11:00 11:36 WBC 10.6 H RBC 4.58 Hgb 14.4 Hct 44.1 MCV 96 MCH 31.5 MCHC 32.7 RDW 17.8 H Plt Count 228 Seg Neutrophils % 80.3 H Lymphocytes % 10.4 L Monocytes % 8.4 Eosinophils % 0.3 Basophils % 0.6 Absolute Neutrophils 8.5 H Absolute Lymphocytes 1.1 Absolute Monocytes 0.9 Absolute Eosinophils 0.0 Absolute Basophils 0.1 PT INR APTT Carbonic Acid 0.79 L HCO3/H2CO3 Ratio 22:1 ABG pH 7.44 ABG pCO2 26.4 L ABG pO2 59.6 L ABG HCO3 17.5 L ABG Total CO2 18.3 L ABG O2 Saturation 92.2 L ABG Base Excess -4.8 FiO2 2L Sodium Potassium Chloride Carbon Dioxide Anion Gap BUN Creatinine Est GFR ( Amer) Est GFR (Non-Af Amer) Glucose Lactic Acid Calcium Total Bilirubin Direct Bilirubin Neonat Total Bilirubin Neonat Direct Bilirubin Neonat Indirect Bili AST ALT Alkaline Phosphatase Troponin I Total Protein Albumin Urine Color EMILIANO Urine Appearance CLOUDY Urine pH 5.0 Ur Specific [place] 1.021 Urine Protein 30 H Urine Glucose (UA) NEGATIVE Urine Ketones TRACE H Urine Blood SMALL H Urine Nitrite NEGATIVE Urine Bilirubin SMALL H Urine Urobilinogen 4.0 H Ur Leukocyte Esterase SMALL H Urine WBC (Auto) 39 Urine RBC (Auto) 3 U Hyaline Cast (Auto) 4 Urine Bacteria (Auto) 3+ Squamous Epi Cells Auto 2 Urine Mucus (Auto) FEW Urine Ascorbic Acid NEGATIVE 06/17/18 06/17/18 06/17/18 11:36 11:36 11:36 WBC RBC Hgb Hct MCV MCH MCHC RDW Plt Count Seg Neutrophils % Lymphocytes % Monocytes % Eosinophils % Basophils % Absolute Neutrophils Absolute Lymphocytes Absolute Monocytes Absolute Eosinophils Absolute Basophils PT 20.9 H INR 1.71 APTT 35.4 Carbonic Acid HCO3/H2CO3 Ratio ABG pH ABG pCO2 ABG pO2 ABG HCO3 ABG Total CO2 ABG O2 Saturation ABG Base Excess FiO2 Sodium Cancelled Potassium Cancelled Chloride Cancelled Carbon Dioxide Cancelled Anion Gap Cancelled BUN Cancelled Creatinine Cancelled Est GFR ( Amer) Cancelled Est GFR (Non-Af Amer) Cancelled Glucose Cancelled Lactic Acid Calcium Cancelled Total Bilirubin Cancelled Direct Bilirubin Cancelled Neonat Total Bilirubin Cancelled Neonat Direct Bilirubin Cancelled Neonat Indirect Bili Cancelled AST Cancelled ALT Cancelled Alkaline Phosphatase Cancelled Troponin I Cancelled Total Protein Cancelled Albumin Cancelled Urine Color Urine Appearance Urine pH Ur Specific [place] Urine Protein Urine Glucose (UA) Urine Ketones Urine Blood Urine Nitrite Urine Bilirubin Urine Urobilinogen Ur Leukocyte Esterase Urine WBC (Auto) Urine RBC (Auto) U Hyaline Cast (Auto) Urine Bacteria (Auto) Squamous Epi Cells Auto Urine Mucus (Auto) Urine Ascorbic Acid 06/17/18 11:36 WBC RBC Hgb Hct MCV MCH MCHC RDW Plt Count Seg Neutrophils % Lymphocytes % Monocytes % Eosinophils % Basophils % Absolute Neutrophils Absolute Lymphocytes Absolute Monocytes Absolute Eosinophils Absolute Basophils PT INR APTT Carbonic Acid HCO3/H2CO3 Ratio ABG pH ABG pCO2 ABG pO2 ABG HCO3 ABG Total CO2 ABG O2 Saturation ABG Base Excess FiO2 Sodium Potassium Chloride Carbon Dioxide Anion Gap BUN Creatinine Est GFR ( Amer) Est GFR (Non-Af Amer) Glucose Lactic Acid 6.4 H Calcium Total Bilirubin Direct Bilirubin Neonat Total Bilirubin Neonat Direct Bilirubin Neonat Indirect Bili AST ALT Alkaline Phosphatase Troponin I Total Protein Albumin Urine Color Urine Appearance Urine pH Ur Specific [place] Urine Protein Urine Glucose (UA) Urine Ketones Urine Blood Urine Nitrite Urine Bilirubin Urine Urobilinogen Ur Leukocyte Esterase Urine WBC (Auto) Urine RBC (Auto) U Hyaline Cast (Auto) Urine Bacteria (Auto) Squamous Epi Cells Auto Urine Mucus (Auto) Urine Ascorbic Acid Chest X-Ray 06/17/18 10:13 IMPRESSION: Diminished aeration right base. Head CT 06/17/18 10:13 IMPRESSION: NORMAL BRAIN CT WITHOUT CONTRAST. EVIDENCE OF ACUTE STROKE: NO. Patient will be admitted to the hospital for further management of her mental status change. Case discussed with Dr. Vuong who accepted admission. 06/17/18 14:30 Patient CMP was resulted and showed hyperkalemia, she had no acute EKG changes. Hyperkalemia treated with aggressive IV hydration. Patient's family does not wish for her to be seen by Dr. Collado or Dr. Vuong now. Case was discussed with Dr. Anaya who will admit the patient under the hospitalist service. - Vital Signs Vital signs: Temp Pulse Resp BP Pulse Ox 98.2 F 102 H 20 107/63 95 06/17/18 11:48 06/17/18 10:07 06/17/18 13:45 06/17/18 13:45 06/17/18 13:45 - Laboratory Result Diagrams: 06/17/18 11:36 06/17/18 13:42 Laboratory results interpreted by me: 06/17/18 06/17/18 06/17/18 10:41 11:00 11:36 WBC 10.6 H RDW 17.8 H Seg Neutrophils % 80.3 H Lymphocytes % 10.4 L Absolute Neutrophils 8.5 H PT Carbonic Acid 0.79 L ABG pCO2 26.4 L ABG pO2 59.6 L ABG HCO3 17.5 L ABG Total CO2 18.3 L ABG O2 Saturation 92.2 L Lactic Acid Urine Protein 30 H Urine Ketones TRACE H Urine Blood SMALL H Urine Bilirubin SMALL H Urine Urobilinogen 4.0 H Ur Leukocyte Esterase SMALL H 06/17/18 06/17/18 11:36 11:36 WBC RDW Seg Neutrophils % Lymphocytes % Absolute Neutrophils PT 20.9 H Carbonic Acid ABG pCO2 ABG pO2 ABG HCO3 ABG Total CO2 ABG O2 Saturation Lactic Acid 6.4 H Urine Protein Urine Ketones Urine Blood Urine Bilirubin Urine Urobilinogen Ur Leukocyte Esterase - EKG Interpretation by Me Additional EKG results interpreted by me: 06/17/18 12:09 Interpreted by myself [id number]: Sinus tachycardia, rate 100, PAC, left axis, no ST elevation, no significant change from 05/12/18 Critical Care Note - Critical Care Note Total time excluding time spent on procedures (mins): 90 Comments: Metabolic derangement, acidosis, hemodynamic interventions, potential for cardiovascular collapse. Hypoxia with potential for respiratory decompensation. Discussion with multiple physicians and multiple re- evaluations. Multiple discussions with family regarding plan of care. Discharge - Discharge Clinical Impression: Hypoxia, Hyperkalemia UTI (urinary tract infection) Qualifiers: Urinary tract infection type: site unspecified Hematuria presence: without hematuria Qualified Code(s): N39.0 - Urinary tract infection, site not specified Altered mental state Qualifiers: Altered mental status type: unspecified Qualified Code(s): R41.82 - Altered mental status, unspecified Condition: Stable Disposition: ADMITTED INPATIENT Admitting Provider: Hospitalist Unit Admitted: Telemetry
[2018-06-17 10:51] LABS: ARTERIAL BLOOD BASE EXCESS -4.8 mmol/L; ARTERIAL BLOOD FIO2 2L; ARTERIAL BLOOD H2CO3 0.79 mmol/L (1.05-1.35); ARTERIAL BLOOD HCO3 17.5 mmol/L (20-24); ARTERIAL BLOOD O2 SATURATION 92.2 % (94-98); ARTERIAL BLOOD PCO2 26.4 mmHg (35-45); ARTERIAL BLOOD PH 7.44 (7.35-7.45); ARTERIAL BLOOD PO2 59.6 mmHg (80-100); ARTERIAL BLOOD TOTAL CO2 18.3 mmol/L (21-25)
--- NOTE | 2018-06-17 11:36 | RADIOLOGY REPORT (SQ) ---
EXAM DESCRIPTION: CT HEAD WITHOUT COMPLETED DATE/TIME: 06/17/2018 11:22 am REASON FOR STUDY: mental status change COMPARISON: 05/12/2018. TECHNIQUE: Axial images acquired through the brain without intravenous contrast. Images reviewed wi th bone, brain and subdural windows. Additional sagittal and coronal reconstructions were generated. Images stored on PACS. All CT scanners at this facility use dose modulation, iterative reconstruction, and/or weight based d osing when appropriate to reduce radiation dose to as low as reasonably achievable (ALARA). [facility]: Dose Right [facility]: CareDose [facility]: Dose Right [facility]: Teradose 4D [facility]: Smart NJOY RADIATION DOSE: CT Rad equipment meets quality standard of care and radiation dose reduction techniq ues were employed. CTDIvol: 53.2 mGy. DLP: 1070 mGy-cm. mGy. LIMITATIONS: None. FINDINGS: VENTRICLES: Normal size and contour. CEREBRUM: No masses. No hemorrhage. No midline shift. No evidence for acute infarction. Normal gra y/white matter differentiation. No areas of low density in the white matter. CEREBELLUM: No masses. No hemorrhage. No alteration of density. No evidence for acute infarction. EXTRAAXIAL SPACES: No fluid collections. No masses. ORBITS AND GLOBE: No intra- or extraconal masses. Normal contour of globe without masses. CALVARIUM: No fracture. PARANASAL SINUSES: No fluid levels. SOFT TISSUES: No mass or hematoma. OTHER: No other significant finding. IMPRESSION: NORMAL BRAIN CT WITHOUT CONTRAST. EVIDENCE OF ACUTE STROKE: NO. COMMENT: Quality ID # [id number]: Final reports with documentation of one or more dose reduction techniques (e.g., Automated exposure control, adjustment of the mA and/or kV according to patient size, use of iterative reconstruction technique) TECHNICAL DOCUMENTATION: JOB ID: [id number] [employer]- All Rights Reserved Reading location - IP/workstation name: [email or web address]
--- NOTE | 2018-06-17 11:37 | RADIOLOGY REPORT (SQ) ---
EXAM DESCRIPTION: CHEST SINGLE VIEW COMPLETED DATE/TIME: 06/17/2018 10:57 am REASON FOR STUDY: mental status change COMPARISON: 06/06/2011. NUMBER OF VIEWS: One view. TECHNIQUE: Single frontal radiographic view of the chest acquired. LIMITATIONS: None. FINDINGS: LUNGS AND PLEURA: Right basilar subsegmental atelectasis. Low lung volumes generally. Faby ngs otherwise relatively clear. No evidence of CHF. MEDIASTINUM AND HILAR STRUCTURES: Stable contours. Ectatic aorta. HEART AND VASCULAR STRUCTURES: Heart normal in size. Normal vasculature. BONES: No acute findings. HARDWARE: None in the chest. OTHER: No other significant finding. IMPRESSION: Diminished aeration right base. TECHNICAL DOCUMENTATION: JOB ID: [id number] [employer]- All Rights Reserved Reading location - IP/workstation name: [email or web address]
[2018-06-17 11:42] LABS: APPEARANCE,URINE CLOUDY; BILIRUBIN,URINE SMALL (NEGATIVE); COLOR,URINE AMBER; GLUCOSE, URINE NEGATIVE (NEGATIVE); KETONES,URINE TRACE mg/dL (NEGATIVE); LEUKOCYTE ESTERASE,URINE SMALL (NEGATIVE); NITRITE,URINE NEGATIVE (NEGATIVE); PROTEIN,URINE 30 mg/dL (NEGATIVE); URINE SPECIFIC GRAVITY 1.021
[2018-06-17 12:04] LABS: INTERNATIONAL RATION (INR) 1.71
[2018-06-17 12:05] LABS: ABSOLUTE BASOPHILS # (AUTO) 0.1 10^3/uL (0.0-0.2); ABSOLUTE LYMPHOCYTES (AUTO) 1.1 10^3/uL (0.5-4.7); ABSOLUTE MONOCYTES (AUTO) 0.9 10^3/uL (0.1-1.4); ABSOLUTE NEUT (AUTO) 8.5 10^3/uL (1.7-8.2); BASOPHILS % (AUTO) 0.6 % (0-2); EOSINOPHILS % (AUTO) 0.3 % (0-6); HEMATOCRIT 44.1 % (36.0-47.0); HEMOGLOBIN 14.4 g/dL (12.0-15.5); LYMPHOCYTES % (AUTO) 10.4 % (13-45); MEAN CORPUSCULAR HEMOGLOBIN 31.5 pg (27.0-33.4); MEAN CORPUSCULAR HGB CONC 32.7 g/dL (32.0-36.0); MEAN CORPUSCULAR VOLUME 96 fl (80-97); MONOCYTES % (AUTO) 8.4 % (3-13); PARTIAL THROMBOPLASTIN TIME 35.4 SEC (23.5-35.8); PLATELET COUNT 228 10^3/uL (150-450); RED BLOOD COUNT 4.58 10^6/uL (3.72-5.28); RED CELL DISTRIBUTION WIDTH 17.8 % (11.5-14.0); SEGMENTED NEUTROPHILS % (AUTO) 80.3 % (42-78); TOTAL CELLS COUNTED % (AUTO) 100 %; WHITE BLOOD COUNT 10.6 10^3/uL (4.0-10.5)
[2018-06-17 12:11] LABS: PROTHROMBIN TIME 20.9 SEC (11.4-15.4)
[2018-06-17] MEDS ORDERED: CEFTRIAXONE INJ 1000 MG VIAL IV ONE (12:28)
[2018-06-17] MEDS ORDERED: NORMAL SALINE 1000 ML 1,000 ML IV ONE (12:46)
[2018-06-17 14:08] LABS: ALBUMIN 2.3 g/dL (3.5-5.0); ANION GAP 19 (5-19); BILIRUBIN,DIRECT 1.7 mg/dL (0.0-0.4); BILIRUBIN,TOTAL 2.5 mg/dL (0.2-1.3); BLOOD UREA NITROGEN 17 mg/dL (7-20); CALCIUM 8.3 mg/dL (8.4-10.2); CARBON DIOXIDE 15 mmol/L (22-30); CHLORIDE 110 mmol/L (98-107); GLUCOSE 81 mg/dL (75-110); SODIUM 144.2 mmol/L (137-145); TOTAL PROTEIN 5.8 g/dL (6.3-8.2)
[2018-06-17] MEDS: NORMAL SALINE 1000 ML 1,000 ML IV PRN (14:14)
[2018-06-17 14:16] LABS: ALANINE AMINOTRANSFERASE 66 U/L (9-52); ALKALINE PHOSPHATASE 80 U/L (38-126); ASPARTATE AMINO TRANSFERASE 147 U/L (14-36); POTASSIUM 5.5 mmol/L (3.6-5.0)
[2018-06-17] MEDS ORDERED: GLUCAGON,HUMAN RECOMB 1 MG INJ SUBCUT PRN (15:54)
[2018-06-17] MEDS ORDERED: ACETAMINOPHEN 325 MG TABLET PO PRN (15:54)
[2018-06-17] MEDS ORDERED: DEXTROSE 5%-WATER 1000 ML 1,000 ML IV PRN (15:54)
[2018-06-17] MEDS ORDERED: DEXTROSE 40% GEL 15 GM TUBE PO PRN ×2 (15:54)
[2018-06-17] MEDS ORDERED: DEXTROSE 50%-WATER 25 GM/50 ML DISP.SYRIN IV PRN ×2 (15:54)
[2018-06-17] MEDS ORDERED: ONDANSETRON HCL INJ/PF 4 MG/2 ML SDV IV PRN (15:54)
[2018-06-17] MEDS ORDERED: IPRATROPIUM/ALBUTEROL 0.5-2.5 MG/3 ML AMPUL NEB PRN (15:54)
[2018-06-17] MEDS ORDERED: NYSTATIN CREAM 15 GM TP PRN (16:08)
[2018-06-17] MEDS ORDERED: HYDRALAZINE HCL INJ/PF 20 MG/1 ML SDV IV PRN (16:12)
[2018-06-17] MEDS ORDERED: VANCOMYCIN HCL 0 MG in DEXTROSE 5%-WATER 250 ML IV NR (16:15)
[2018-06-17 17:13] LABS: URINE AMPHETAMINES SCREEN NEGATIVE; URINE BARBITURATES SCREEN NEGATIVE; URINE BENZODIAZEPINES SCREEN NEGATIVE; URINE COCAINE SCREEN NEGATIVE; URINE MARIJUANA (THC) SCREEN NEGATIVE; URINE METHADONE SCREEN NEGATIVE; URINE PHENCYCLIDINE SCREEN NEGATIVE
[2018-06-17] MEDS: MORPHINE SULFATE 10 MG/ML INJ IV PRN (17:29)
--- NOTE | 2018-06-17 17:44 | EKG REPORT ---
SEVERITY:- BORDERLINE ECG - SINUS TACHYCARDIA ATRIAL PREMATURE COMPLEX BORDERLINE LEFT AXIS DEVIATION BORDERLINE T ABNORMALITIES, ANT-LAT LEADS : Confirmed by: Joe Bee MD 17-Jun-2018 17:43:24
--- NOTE | 2018-06-17 17:56 | PDOC H&P ---
History of Present Illness Admission Date/PCP: 06/17/18 12:34 DARLENE BANSAL MD Patient complains of: altered mental status History of Present Illness: VITO SUÁREZ is a 68 year old female with PMH of dementia, encephalopathy, recurrent UTI and failure to thrive who presented to the ED from SNF for unresponsiveness and hypoxia this morning. patient has altered mental status and is unable to answer my questions. history was obtained from and family members at bedside. as per family her medical problems started about 4 months ago when she had recurrent falls and UTIs. she also had encephalopathy and was diagnosed with Dementia by her PCP after work up. family was concerned about her symptoms and wanted to check her "cobalt levels" and feels that all her symptoms are due to this. her pcp lina levels and it was elevated but as per family pcp did not treat it. 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 they feel that all her symptoms is due to this elevated level. they brought her to the ED today but family declined to have her PCP, who also sees patient inpatient, see her today and hence hospitalist were consulted. family tells me that for the past month her oral intake has declined tremendously and she's just not eating at all. states she has eating and drinking very little in the last few weeks. patient has also been having having incontinent diarrhea for over year. per family they have been to GI and had EGD/colonoscopy performed with no answers. in the ED she received IV fluids and antibiotics. Past Medical History Cardiac Medical History: Reports: Hypertension Endocrine Medical History: Reports: Diabetes Mellitus Type 2 Musculoskeltal Medical History: Reports: Arthritis - knees Psychiatric Medical History: Reports: Dementia Denies: Depression Hematology: Reports: Anemia - after TKR Denies: Sickle Cell Disease Past Surgical History Past Surgical History: Reports: Orthopedic Surgery Denies: Amputation, Hysterectomy, Mastectomy, Pacemaker Social History Information Source: Relative, Legal Guardian - , Friend Smoking Status: Unknown if Ever Smoked Frequency of Alcohol Use: None Hx Recreational Drug Use: No Drugs: None Hx Prescription Drug Abuse: No - Advance Directive Resuscitation Status: Full Code Family History Family History: Reviewed & Not Pertinent Parental Family History Reviewed: No Children Family History Reviewed: Unknown Sibling(s) Family History Reviewed.: Unknown Medication/Allergy Home Medications: Cranberry [Cranberry 1000 mg Capsule] 1,000 mg PO DAILY 06/17/18 Diphenoxylate HCl/Atrop Sulf [Lomotil 2.5 mg Tablet] 1 tab PO QID 06/17/18 Donepezil HCl [Aricept 5 mg Tablet] 5 mg PO QHS 06/17/18 Hydrocodone/Acetaminophen [Windber 7.5-325 mg Tablet] 1 tab PO Q6HP PRN 06/17/18 Mirtazapine [Remeron] 7.5 mg PO QHS 06/17/18 Nystatin [Mycostatin Cream] 1 applic TP BIDP PRN 06/17/18 Pregabalin [Lyrica 75 mg Capsule] 75 mg PO Q12 06/17/18 Topiramate [Topamax] 50 mg PO Q12 06/17/18 Allergies/Adverse Reactions: Penicillins Allergy (Intermediate, Verified 06/17/18 11:55) Rash Sulfa (Sulfonamide Antibiotics) Allergy (Intermediate, Verified 06/17/18 11:55) RASH IN MOUTH Review of Systems ROS unobtainable: Due to mental status Physical Exam Vital Signs: Temp Pulse Resp BP Pulse Ox 98.2 F 102 H 21 H 101/75 95 06/17/18 11:48 06/17/18 10:07 06/17/18 14:31 06/17/18 14:31 06/17/18 14:31 Intake & Output 06/16/18 06/17/18 06/18/18 06:59 06:59 06:59 Intake Total 1000 Balance 1000 General appearance: PRESENT: no acute distress, other - lethargic, weak, does not respond to commands Head exam: PRESENT: atraumatic, normocephalic Eye exam: ABSENT: conjunctival injection, scleral icterus Ear exam: PRESENT: normal external ear exam Mouth exam: PRESENT: tongue midline Teeth exam: PRESENT: poor dentation Neck exam: ABSENT: tracheal deviation Respiratory exam: PRESENT: decreased breath sounds - decreased breath sounds bilaterally, symmetrical Cardiovascular exam: PRESENT: +S1, +S2, tachycardia, other - cap refill <2s Pulses: PRESENT: +2 pedal pulses bilateral GI/Abdominal exam: PRESENT: normal bowel sounds, soft. ABSENT: tenderness Extremities exam: ABSENT: pedal edema Musculoskeletal exam: PRESENT: other - unable to evaluate ROM Neurological exam: PRESENT: CN II-XII grossly intact, other - does not respond to verbal commands- eyes open- does retract to physical stimuli- limited exam due to altered mental status Skin exam: PRESENT: dry, mottled, skin tears, warm, other - ecchymosis in arms and legs Results Laboratory Results: 06/17/18 13:42 06/17/18 13:42 Sodium 144.2 Potassium 5.5 H Chloride 110 H Carbon Dioxide 15 L Anion Gap 19 BUN 17 Creatinine 1.11 Est GFR ( Amer) 59 L Est GFR (Non-Af Amer) 49 L Glucose 81 Calcium 8.3 L Total Bilirubin 2.5 H AST 147 H ALT 66 H Alkaline Phosphatase 80 Total Protein 5.8 L Albumin 2.3 L 06/17/18 13:42 Troponin I 0.012 Impressions: Chest X-Ray 06/17/18 10:13 IMPRESSION: Diminished aeration right base. Head CT 06/17/18 10:13 IMPRESSION: NORMAL BRAIN CT WITHOUT CONTRAST. EVIDENCE OF ACUTE STROKE: NO. Assessment & Plan - Diagnosis (1) Severe sepsis Is this a current diagnosis for this admission?: Yes (2) Urinary tract infection Qualifiers: Urinary tract infection type: acute cystitis Hematuria presence: without hematuria Qualified Code(s): N30.00 - Acute cystitis without hematuria Is this a current diagnosis for this admission?: Yes (3) Altered mental state Qualifiers: Altered mental status type: unspecified Qualified Code(s): R41.82 - Altered mental status, unspecified Is this a current diagnosis for this admission?: Yes (4) Dementia Is this a current diagnosis for this admission?: Yes (5) Elevated LFTs Is this a current diagnosis for this admission?: Yes - Time Time Spent: Greater than 70 Minutes Medications reviewed and adjusted accordingly: Yes Anticipated discharge: SNF - Inpatient Certification Based on my medical assessment, after consideration of the patient's comorbidities, presenting symptoms, or acuity I expect that the services needed warrant INPATIENT care.: Yes I certify that my determination is in accordance with my understanding of Medicare's requirements for reasonable and necessary INPATIENT services [42 CFR 412.3e].: Yes Medical Necessity: Need Close Monitoring Due to Risk of Patient Decompensation, Need For IV Fluids, Need For Continuous Telemetry Monitoring, Need for IV Antibiotics, Risk of Complication if Not Cared For in Hospital Post Hospital Care: D/C Seam Checker Documentation - Plan Summary Plan Summary: severe sepsis- lactic acid >6 WBC >10 RR >20 HR >100 upon arrival received IV rocephin. received IV fluid boluses. Will switch to broad spectrum IV antibiotics- given her PCN allergy- will try Cefepime and Vanco. Bcx and UCx ordered and pending. Trend lactic acid. admit to IMCU for further management. Will start her on IV fluids for resuscitation. UTi- h/o recurrent UTI. see plan above encephalopathy- unclear etiology. 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 she does have right TKA from 4-5 years ago. i will consult Ortho for possible revision and their evaluation. outpatient cobalt levels were elevated. she was admitted to hospital by her PCP recently and worked up for encephalopathy- at that time it was felt this to me dementia. I will go ahead and get some labs to r/o other causes of AMS- RPR, hep panel, ammonia levels. she does have elevated LFTs- will get RUQ U/S. elevated LFTs- see plan above. code status- i had a long discussion with family about her code status- and family members seem to be indecisive - i explained to family that prognosis is poor and this may have a poor outcome- after a lot of thought- wanted FULL CODE for his but he was not sure of it.
[2018-06-17] MEDS ORDERED: VANCOMYCIN HCL 750 MG in DEXTROSE 5%-WATER 250 ML IV SCH (18:00)
--- NOTE | 2018-06-17 18:06 | Progress Note ---
Provider Note Provider Note: called by nursing around 1700- patients BP is low in the 70s. she's taking some shallow breaths. went to evaluate patient- at this time patient looks worse than she did in the ED. spoke with about transferring patient to ICU - intubate her- start central line- start her on pressor support- and monitor her there. i explained to that her condition has declined even further. checked her labs- her repeat lactic acid is >10. given her lactic acid, low SBP and current state- she's likely in septic shock. spoke to his family and friends and decided to make her comfort measures- he does not want any more procedures or interventions. i have changed her to comfort measures and offered morphine for her breathing. family and is agreeable and appreciative.
[2018-06-17] MEDS ORDERED: CEFEPIME 2 GM/D5W RTU 2 GM/50 ML RTUPB IV SCH (22:00)
[2018-06-17] MEDS ORDERED: FAMOTIDINE INJ/PF 20 MG/2 ML SDV IV SCH (22:00)
[2018-06-18] MEDS: MORPHINE SULFATE 10 MG/ML INJ IV PRN ×13 (01:36→23:27)
[2018-06-18] MEDS: NORMAL SALINE 1000 ML 1,000 ML IV PRN (01:41)
[2018-06-18] MEDS ORDERED: VANCOMYCIN HCL 750 MG in DEXTROSE 5%-WATER 250 ML IV SCH (06:00)
[2018-06-18] MEDS ORDERED: CEFEPIME 2 GM/D5W RTU 2 GM/50 ML RTUPB IV SCH ×2 (06:00→10:00)
[2018-06-18] MEDS ORDERED: PREGABALIN 75 MG CAPSULE PO SCH (10:00)
[2018-06-18] MEDS ORDERED: ENOXAPARIN SODIUM INJ 40 MG/0.4 ML DISP.SYRIN SUBCUT SCH (10:00)
[2018-06-18] MEDS: LORAZEPAM INJ 2 MG/1 ML VIAL IV PRN ×7 (11:53→23:36)
--- NOTE | 2018-06-18 15:33 | PDOC PROGRESS REPORT ---
Subjective Progress Note for:: 06/18/18 - seen on rounds this morning Subjective:: patient laying comfortably in bed-all family is at bedside. overnight family wanted antibiotics- and blood work- was ordered. when i went to see family they had changed their mind again and wanted to continue with comfort measures. i asked what he would like for me today- after much considering he asked me to increase her medications to keep her comfortable. he understands that increased morphine and ativan will surely shorten her life and she will have respiratory failure- and family agrees. Reason For Visit: SEVERE SEPSIS,ENCEPHALOPATHY,UTI Physical Exam Vital Signs: Temp Pulse Resp BP Pulse Ox 97.3 F 97 18 78/28 L 92 06/18/18 07:43 06/18/18 07:43 06/18/18 07:43 06/18/18 07:43 06/18/18 04:07 Intake & Output 06/17/18 06/18/18 06/19/18 06:59 06:59 06:59 Intake Total 2000 250 Output Total 50 Balance 1950 250 Weight 219 lb 2.232 oz General appearance: PRESENT: no acute distress, other - pale appearing Head exam: PRESENT: atraumatic, normocephalic Ear exam: PRESENT: normal external ear exam Respiratory exam: PRESENT: unlabored Cardiovascular exam: PRESENT: +S1, +S2, other - distant heart sounds Neurological exam: PRESENT: other - lethargic Skin exam: PRESENT: mottled Results Laboratory Results: 06/18/18 07:27 06/18/18 07:27 06/17/18 06/18/18 06/18/18 16:20 05:55 07:27 WBC Cancelled RBC Cancelled Hgb Cancelled Hct Cancelled MCV Cancelled MCH Cancelled MCHC Cancelled RDW Cancelled Plt Count Cancelled Seg Neutrophils % Cancelled Lymphocytes % Cancelled Monocytes % Cancelled Eosinophils % Cancelled Basophils % Cancelled Absolute Neutrophils Cancelled Absolute Lymphocytes Cancelled Absolute Monocytes Cancelled Absolute Eosinophils Cancelled Absolute Basophils Cancelled Sodium Potassium Chloride Carbon Dioxide Anion Gap BUN Creatinine Est GFR ( Amer) Est GFR (Non-Af Amer) Glucose Lactic Acid 10.6 H 8.4 H Calcium 06/18/18 07:27 WBC RBC Hgb Hct MCV MCH MCHC RDW Plt Count Seg Neutrophils % Lymphocytes % Monocytes % Eosinophils % Basophils % Absolute Neutrophils Absolute Lymphocytes Absolute Monocytes Absolute Eosinophils Absolute Basophils Sodium Cancelled Potassium Cancelled Chloride Cancelled Carbon Dioxide Cancelled Anion Gap Cancelled BUN Cancelled Creatinine Cancelled Est GFR ( Amer) Cancelled Est GFR (Non-Af Amer) Cancelled Glucose Cancelled Lactic Acid Calcium Cancelled 06/17/18 06/17/18 13:42 16:20 Troponin I 0.012 0.014 Impressions: Chest X-Ray 06/17/18 10:13 IMPRESSION: Diminished aeration right base. Head CT 06/17/18 10:13 IMPRESSION: NORMAL BRAIN CT WITHOUT CONTRAST. EVIDENCE OF ACUTE STROKE: NO. Assessment & Plan - Diagnosis (1) Comfort measures only status Is this a current diagnosis for this admission?: Yes (2) Severe sepsis Is this a current diagnosis for this admission?: Yes (3) Urinary tract infection Qualifiers: Urinary tract infection type: acute cystitis Hematuria presence: without hematuria Qualified Code(s): N30.00 - Acute cystitis without hematuria Is this a current diagnosis for this admission?: Yes (4) Altered mental state Qualifiers: Altered mental status type: unspecified Qualified Code(s): R41.82 - Altered mental status, unspecified Is this a current diagnosis for this admission?: Yes (5) Dementia Is this a current diagnosis for this admission?: Yes (6) Elevated LFTs Is this a current diagnosis for this admission?: Yes - Time Time Spent with patient: Less than 15 minutes - Plan Summary Plan Summary: spoke with family and this morning- although over night they wanted blood work and antibiotics to be restarted- this morning when i went there they have again changed their minds- they would want to continue with comfort measures only. after much thought they have asked me to increase her morphine and added ativan for comfort- they understand that increased medications will surely cause shortened lifespan with respiratory arrest- this was her and families request. i have increased it medications.
[2018-06-19] MEDS: MORPHINE SULFATE 10 MG/ML INJ IV PRN ×11 (00:31→13:44)
[2018-06-19] MEDS: LORAZEPAM INJ 2 MG/1 ML VIAL IV PRN ×5 (01:39→12:19)
[2018-06-19] MEDS ORDERED: MORPHINE SULFATE 10 MG/ML INJ IV ONE (09:52)
[2018-06-19] MEDS ORDERED: MORPHINE SULFATE 10 MG/ML INJ IV PRN ×3 (11:00→11:49)
[2018-06-19 12:35] VITALS: BP 59/34
--- NOTE | 2018-06-19 14:21 | PDOC PROGRESS REPORT ---
Subjective Progress Note for:: 06/19/18 - seen on rounds this morning Subjective:: patient surrounded by family and look comfortable to me Reason For Visit: SEVERE SEPSIS,ENCEPHALOPATHY,UTI Physical Exam Vital Signs: Temp Pulse Resp BP Pulse Ox 97.3 F 95 18 78/28 L 92 06/18/18 07:43 06/19/18 07:00 06/18/18 07:43 06/18/18 07:43 06/18/18 04:07 Intake & Output 06/18/18 06/19/18 06/20/18 06:59 06:59 06:59 Intake Total 2000 250 Output Total 50 100 Balance 1950 150 Weight 219 lb 2.232 oz 218 lb 4.122 oz General appearance: PRESENT: no acute distress Head exam: PRESENT: atraumatic, normocephalic Vascular exam: PRESENT: other - looks pale Neurological exam: PRESENT: other - eyes closed- i did not try to wake her Results Laboratory Results: 06/18/18 07:27 06/18/18 07:27 06/17/18 06/17/18 13:42 16:20 Troponin I 0.012 0.014 Impressions: Chest X-Ray 06/17/18 10:13 IMPRESSION: Diminished aeration right base. Head CT 06/17/18 10:13 IMPRESSION: NORMAL BRAIN CT WITHOUT CONTRAST. EVIDENCE OF ACUTE STROKE: NO. Assessment & Plan - Diagnosis (1) Comfort measures only status Is this a current diagnosis for this admission?: Yes (2) Severe sepsis Is this a current diagnosis for this admission?: Yes (3) Urinary tract infection Qualifiers: Urinary tract infection type: acute cystitis Hematuria presence: without hematuria Qualified Code(s): N30.00 - Acute cystitis without hematuria Is this a current diagnosis for this admission?: Yes (4) Altered mental state Qualifiers: Altered mental status type: unspecified Qualified Code(s): R41.82 - Altered mental status, unspecified Is this a current diagnosis for this admission?: Yes (5) Dementia Is this a current diagnosis for this admission?: Yes (6) Elevated LFTs Is this a current diagnosis for this admission?: Yes - Time Time Spent with patient: Less than 15 minutes - Plan Summary Plan Summary: comfort care- went to see patient this morning. she's laying in bed- looks pale - motionless. her spoke with me. he asks me how come she's still alive. i told her i do not know but she's holding on still. he tells me "i thought she would already- i told all my family and friends that my is dying". i told him we are here to keep her comfortable and she looks comfortable to me. i told him that the morphine is appropriate at this time at 3mg every hour. he tells me if there's anything else i do - he says "i dont want my to continue like this- please do what ever it takes" i told him i do feel i need to go up on the medication. starts to cry and tells me please give her something more. he tells me he can't take this anymore. i tell him that more morphine will surely lead to her - he starts crying and he tells me i know. i ask him "do you think she's suffering and in pain?". he starts to cry and tells me yes. i told her i will increase her morphine and give an extra dose of morphine now since he feels that she's suffering. i have stopped her IV fluids and supplemental O2 today
--- NOTE | 2018-06-19 16:14 | Death Summary ---
Summary Date : 06/19/18 Time of :: 15:13 Autopsy: No Resuscitation Status: Comfort Measures Only - Final Diagnosis (1) Septic shock Is this a current diagnosis for this admission?: Yes (2) Comfort measures only status Is this a current diagnosis for this admission?: Yes (3) Severe sepsis Is this a current diagnosis for this admission?: Yes (4) Urinary tract infection Is this a current diagnosis for this admission?: Yes (5) Altered mental state Is this a current diagnosis for this admission?: Yes (6) Dementia Is this a current diagnosis for this admission?: Yes (7) Elevated LFTs Is this a current diagnosis for this admission?: Yes Hospital Course:: after admission to the hospital- she was started on IV fluids and antibiotics. right after admission- within hours- her BP dropped and i went to evaluate patient. she was in IMCU bed- family was at bedside. i told that her condition has declined very quickly and i need to move her to the ICU - possibly intubate her and start her on pressors for likely septic shock. her lactic acid as come up to >10. i told him that her poor prognosis is very poor at this time. spoke with family and asked me to make her comfort care and not pursue any heroic measures. i had a lengthy conversation with - i have explained that withdrawing care would surely lead to her . he verbalized understanding- he told he did not want her to suffer any more -told me she had been suffering for a few months now and not getting better. i change her to comfort measures. family was appreciative of the staff for everything. this morning- approached me again- felt she was still not comfortable and wanted me to increase her pain medications- please see earlier note from today. called by nursing to evaluate patient for unresponsiveness. on exam patient did not respond to verbal or physical stimuli. absent heart and breath sounds. absent pulses. pupils are fixed and dilated. flatline strip on tele. patient pronounced at 15:13. family at bedside. autopsy declined.
== END 2018-06-19 17:08 | DRG 871 ==
LOC: ER 09:59 → EH 12:34 → UNDOADMIN 12:34 → 3W 16:48 → EH 16:48
PROVIDERS: ADMIT Internal Medicine; ATTEND Internal Medicine
PROC: 3E0F73Z Introduction of Anti-inflammatory into Respiratory Tract, Via Natural or Artificial Opening (ICD-10-PCS; principal; 2018-06-17)
DX: A41.9 Sepsis, unspecified organism (principal); R65.21 Severe sepsis with septic shock; N30.00 Acute cystitis without hematuria; Z66 Do not resuscitate; Z51.5 Encounter for palliative care; I10 Essential (primary) hypertension; F03.90 Unspecified dementia, unspecified severity, without behavioral disturbance, psychotic disturbance, mood disturbance, and anxiety; R62.7 Adult failure to thrive; R79.89 Other specified abnormal findings of blood chemistry; Z96.651 Presence of right artificial knee joint; E66.9 Obesity, unspecified; E11.9 Type 2 diabetes mellitus without complications; E87.5 Hyperkalemia; Z91.81 History of falling; Z79.899 Other long term (current) drug therapy; Z88.0 Allergy status to penicillin; Z88.2 Allergy status to sulfonamides
CPT/HCPCS: 36415; 51702; 70450; 71045; 80053; 80307; 81001; 82803; 82962; 83605; 84484; 85025; 85610; 85730; 87040; 87077; 87086; 87088; 87186; 93005; 93010; 96374; 99291; 99292; J0696; J2060; J2270; J2310; J3370; J7030; J7060